=== PATIENT | female | born 1980 | race Caucasian/White ===

== ENCOUNTER 2016-06-06 08:00 | Outpatient (CLI) | payer MEDICAID | END 2016-06-06 08:01 | disposition home or self-care (01) | DX: Z11.3 Encounter for screening for infections with a predominantly sexual mode of transmission (principal) ==

== ENCOUNTER 2016-06-09 10:06 | Outpatient (CLI) | payer MEDICAID | END 2016-06-09 10:07 | disposition home or self-care (01) | DX: Z13.9 Encounter for screening, unspecified (principal) ==

== ENCOUNTER 2016-06-09 10:10 | Outpatient (CLI) | payer MEDICAID | END 2016-06-09 10:11 | disposition home or self-care (01) | DX: Z36 Encounter for antenatal screening of mother (principal); Z11.3 Encounter for screening for infections with a predominantly sexual mode of transmission; Z13.9 Encounter for screening, unspecified; E03.9 Hypothyroidism, unspecified ==

== ENCOUNTER 2016-07-03 11:05 | Outpatient (CLI) | payer MEDICAID | END 2016-07-03 11:06 | disposition home or self-care (01) | DX: Z36 Encounter for antenatal screening of mother (principal) ==

== ENCOUNTER 2016-07-13 16:35 | Emergency (ER) | payer MEDICAID | END 2016-07-13 17:59 | disposition home or self-care (01) | DX: O99.712 Diseases of the skin and subcutaneous tissue complicating pregnancy, second trimester (principal); L02.211 Cutaneous abscess of abdominal wall; O99.212 Obesity complicating pregnancy, second trimester; E66.01 Morbid (severe) obesity due to excess calories; Z3A.14 14 weeks gestation of pregnancy; Z87.891 Personal history of nicotine dependence; Z68.42 Body mass index [BMI] 45.0-49.9, adult ==

== ENCOUNTER 2016-07-31 10:28 | Outpatient (CLI) | payer MEDICAID | END 2016-07-31 10:29 | disposition home or self-care (01) | DX: Z36 Encounter for antenatal screening of mother (principal) ==

== ENCOUNTER 2016-08-05 20:03 | Outpatient (CLI) | payer MEDICAID | END 2016-08-05 20:04 | disposition home or self-care (01) | DX: R10.84 Generalized abdominal pain (principal); D18.03 Hemangioma of intra-abdominal structures; Z90.49 Acquired absence of other specified parts of digestive tract ==

== ENCOUNTER 2016-08-25 07:37 | Outpatient (CLI) | payer MEDICAID | END 2016-08-25 07:38 | disposition home or self-care (01) | DX: Z36 Encounter for antenatal screening of mother (principal) ==

== ENCOUNTER 2016-09-12 12:23 | Outpatient (CLI) | payer MEDICAID | END 2016-09-12 12:24 | disposition home or self-care (01) | DX: Z36 Encounter for antenatal screening of mother (principal) ==

== ENCOUNTER 2016-10-16 12:48 | Outpatient (CLI) | payer MEDICAID ==
[2016-10-16 14:19] VITALS: BP 140/76
== END 2016-10-16 14:10 | disposition home or self-care (01) ==
LOC: WFO 12:48 → OB 12:50 → WFO 14:10
PROVIDERS: ATTEND Obstetrics & Gynecology
DX: O36.8120 Decreased fetal movements, second trimester, not applicable or unspecified (principal); Z3A.27 27 weeks gestation of pregnancy; O99.282 Endocrine, nutritional and metabolic diseases complicating pregnancy, second trimester; E03.9 Hypothyroidism, unspecified
CPT/HCPCS: 36415; 59025; 83036; 84439; 84443; 84481

== ENCOUNTER 2016-10-16 12:52 | Outpatient (CLI) | payer MEDICAID | END 2016-10-16 12:53 | disposition home or self-care (01) | DX: E03.9 Hypothyroidism, unspecified (principal) ==

== ENCOUNTER 2016-12-07 20:47 | Outpatient (CLI) | payer MEDICAID ==
[2016-12-07 21:46] LABS: BILIRUBIN,URINE NEGATIVE (NEGATIVE)
[2016-12-07 21:53] LABS: WBC,URINE 0-3 /HPF (0-5)
[2016-12-07 21:54] LABS: UR CULTURE IF IND NOT INDICATED
[2016-12-07] MEDS ORDERED: TERBUTALINE 1 MG/ML VIAL SUBQ ONE (23:05)
[2016-12-08 00:08] VITALS: BP 142/70
== END 2016-12-08 00:07 | disposition home or self-care (01) ==
LOC: WFO 20:47 → OB 20:51 → WFO 12-08 00:07
PROVIDERS: ATTEND Obstetrics & Gynecology
DX: O47.03 False labor before 37 completed weeks of gestation, third trimester (principal); Z3A.35 35 weeks gestation of pregnancy
CPT/HCPCS: 81001; 87081; 87086; 87797; 96372; 99214

== ENCOUNTER 2016-12-16 10:08 | Outpatient (CLI) | payer MEDICAID ==
[2016-12-16 10:27] VITALS: BP 123/67
[2016-12-16 10:47] LABS: BASOPHILS # (AUTO) 0.1 10^3/uL (0.0-0.1); BASOPHILS % (AUTO) 0.5 %; EOSINOPHILS # (AUTO) 0.1 10^3/uL (0.0-0.7); EOSINOPHILS % (AUTO) 1.3 %; HCT - HEMATOCRIT 37.4 % (37.0-47.0); HGB - HEMOGLOBIN 12.7 g/dL (12.0-16.0); LYMPHOCYTES # (AUTO) 2.5 10^3/uL (1.5-3.5); LYMPHOCYTES % (AUTO) 25.7 %; MEAN CORPUSCULAR HGB CONC 34.1 g/dL (32.0-36.0); MEAN PLATELET VOLUME 7.9 fL (7.9-10.8); MONOCYTES # (AUTO) 0.5 10^3/uL (0.0-1.0); MONOCYTES % (AUTO) 5.4 %; NEUTROPHILS # (AUTO) 6.4 10^3/uL (1.5-6.6); NEUTROPHILS % (AUTO) 67.1 %; NUCLEATED RED BLOOD CELLS AUTO 0.1 /100WBC; RED CELL DISTRIBUTION WIDTH 15.2 % (12.0-15.0); UNCORRECTED WHITE BLOOD COUNT 9.6 x10^3/uL; WHITE BLOOD COUNT 9.6 x10^3/uL (4.8-10.8)
[2016-12-16 10:59] LABS: CREATININE 0.5 mg/dL (0.4-1.0)
[2016-12-16 12:03] LABS: HEMOGLOBIN A1C 0.51 g/dL
[2016-12-16 12:31] LABS: THYROID STIMULATING HORMONE 1.62 uIU/mL (0.34-5.60)
--- NOTE | 2016-12-17 10:10 | Ultrasound Report ---
OBSTETRICAL ULTRASOUND: 12/16/2016 CLINICAL HISTORY: Followup obstetrical ultrasound. Evaluate weight and amniotic fluid volume index. TECHNIQUE: Real-time scanning was performed with in home sales representative static images obtained. LAST MENSTRUAL PERIOD 04/02/2016 Clinical Age 36 weeks 6 days US Age 38 weeks 0 days EFW Hadlock 3586 g EFW% Hadlock 93% Heart Rate 150 bpm EDC 01/07/2017 US EDC 12/30/2016 BPD Hadlock 36 weeks 1 day; Mean mm 89.3 HC Hadlock 38 weeks 6 days; Mean mm 338.6 AC Hadlock 40 weeks 1 day; Mean mm 361.6 FL Hadlock 36 weeks 6 days; Mean mm 72.1 Presentation cephalic Placental Location --- Cervical Length --- Amniotic Fluid 4.4 cm FINDINGS: Single fetus is noted in vertex position. Composite gestational age by ultrasound today is 38 weeks. Present gestational age is 8 days more advanced than expected. This degree of growth is at the upper limits of normal. estimated weight today is 3586 grams. This is within the 93rd percentile for expected gestational age. abdominal circumference also is at the upper limits of normal. abdominal circumference also is at the upper limits of normal. anatomy only underwent limited evaluation today. head showed no obvious abnormality. abdomen showed no significant abnormality. heart rate was 150 beats per minute and regular. Normal movement was noted. Placenta is posterior and of the grade 2 type. Amniotic fluid volume index is low, measuring 4.4 cm. This is in the lower 2.5 percentile. Umbilical cord flow shows normal end-diastolic flow. IMPRESSION: 1. SINGLE FETUS IS NOTED IN VERTEX POSITION. PRESENT GESTATIONAL AGE IS 8 DAYS MORE ADVANCED THAN EXPECTED CALCULATED FROM PRECEDING ULTRASOUND EXAMS. PATIENT SHOULD BE 36 WEEKS 6 DAYS BUT MEASURES TODAY 38 WEEKS. PATIENT'S WEIGHT AND ABDOMINAL CIRCUMFERENCE IS AT THE UPPER LIMITS OF NORMAL, WITHIN THE 93RD PERCENTILE. WEIGHT AT PRESENT IS 3586 GRAMS (7.91 POUNDS). 2. POSTERIOR GRADE 2 PLACENTA IS NOTED. 3. OLIGOHYDRAMNIOS IS SEEN. AMNIOTIC FLUID VOLUME INDEX IS BELOW THE 2.5 PERCENTILE FOR GESTATIONAL AGE. UMBILICAL CORD FLOW SHOWS NORMAL END-DIASTOLIC FLOW. OTHER STUDIES TO CONSIDER FOR FURTHER EVALUATION IS NONSTRESS TEST AND BIOPHYSICAL PROFILE. ALSO, PATIENT SHOULD BE CHECKED FOR PREMATURE RUPTURE OF MEMBRANES. COMMENT: Dr. Taveras informed patient's physician, Dr. Healy, of the above findings on 12/16/2016 at 4:[address] [facility]
== END 2016-12-16 15:25 | disposition home or self-care (01) ==
LOC: WFO 10:08 → OB 10:09 → WFO 15:25
PROVIDERS: ATTEND Obstetrics & Gynecology
DX: O09.523 Supervision of elderly multigravida, third trimester (principal); Z3A.36 36 weeks gestation of pregnancy
CPT/HCPCS: 36415; 59025; 76816; 82565; 82570; 83036; 83615; 84156; 84439; 84443; 84450; 84481; 84550; 85025; 85384; 86803

== ENCOUNTER 2016-12-16 22:48 | Observation (INO) | payer MEDICAID ==
[2016-12-17] MEDS ORDERED: SODIUM CHLORIDE FLUSH 0.9% 10 ML SYRINGE IVP PRN (00:12)
--- NOTE | 2016-12-17 00:48 | PROVIDER PROGRESS NOTE ---
Subjective - Prog Note Date Prog Note Date: 12/17/16 Prog Note Time: 00:43 - Subjective Pt reports feeling: No change Objective - Vital Signs/Intake & Output Vital Signs: Vital Signs x48h Temp Pulse Resp BP Pulse Ox 12/16/16 23:06 98.1 F 85 20 135/61 H 100 - Lab Results Other Labs: Lab Results x24hrs 12/17/16 Range/Units 00:41 POC Whole Bld Glucose 151 H (70 - 100) mg/dL Assessment/Plan - Problem List (1) Oligohydramnios antepartum Impression: 36 yo with a 36w3d IUP. Work up suggestive of intact membranes with negative pooling, ferning and nitrazine. JOVANA yesterday low at 4.4 cm. No cervical change. status reassuring with baseline in 120-130's, reactive and category 1. No decels. Hypothyroid and levothyroxine just increased to 88 mcg po daily. Will IV hydrate and plan to repeat JOVANA in AM. If however, if patient declares that she is ruptured, plan for induction of labor. If Aruna continues to have a reassuring status, have no signs of ruptured membranes, have no signs of labor, and repeat JOVANA > 5 cm, consider discharge to home. GBS negative so will not require antibiotics for GBS prophylaxis. Continue flexeril and oxycodone for chronic back pain. Qualifiers: Fetus number: single or unspecified fetus Trimester: third trimester Qualified Code(s): O41.03X0 - Oligohydramnios, third trimester, not applicable or unspecified
[2016-12-17] MEDS: LACTATED RINGERS 1,000 ML IV SCH ×3 (00:52→08:37)
--- NOTE | 2016-12-17 00:57 | PROVIDER PROGRESS NOTE ---
Objective - Vital Signs/Intake & Output Vital Signs: Vital Signs x48h Temp Pulse Resp BP Pulse Ox 12/17/16 00:43 99.1 F 80 20 128/64 100 12/16/16 23:06 98.1 F 85 20 135/61 H 100 - Lab Results Other Labs: Lab Results x24hrs 12/17/16 Range/Units 00:41 POC Whole Bld Glucose 151 H (70 - 100) mg/dL Assessment/Plan - Problem List (1) Oligohydramnios antepartum Impression: H&P dictated-- [id number]. 12/16/2016 labs: WBC 9.6, H/H 12.7/37.4, PLT 273. Fibrinogen 588, creatinine 0.5 , HgbA1c 5.6, AST 23, TSH 1.62, fT4 0.53, fT3 3.17, UA with glucose and ketones. Urine protein: creatinine 0.1. 12/16/2016 prelim U/S: Single fetus, VTX. Present gestational age 8 days more advanced than expected. Weight 3586 gm, 7.91 lbs, 93%centile. Grade 2 placenta. Oligohydramnios 4.4 cm. Qualifiers: Fetus number: single or unspecified fetus Trimester: third trimester Qualified Code(s): O41.03X0 - Oligohydramnios, third trimester, not applicable or unspecified
[2016-12-17] MEDS: ACETAMINOPHEN 325 MG TABLET PO SCH ×3 (01:02→12:46)
[2016-12-17] MEDS: oxyCODONE 5 MG TABLET PO SCH ×4 (01:04→13:56)
[2016-12-17] MEDS ORDERED: SODIUM CHLORIDE FLUSH 0.9% 10 ML SYRINGE IVP SCH (06:00)
[2016-12-17] MEDS ORDERED: LEVOTHYROXINE 88 MCG TABLET PO SCH (07:00)
[2016-12-17] MEDS ORDERED: CYCLOBENZAPRINE 10 MG TABLET PO SCH (09:00)
[2016-12-17] MEDS ORDERED: OXYCODONE HCL 10 MG PO SCH (09:00)
--- NOTE | 2016-12-17 09:32 | PROVIDER PROGRESS NOTE ---
Subjective - Prog Note Date Prog Note Date: 12/17/16 Prog Note Time: 09:25 - Subjective Pt reports feeling: No change Subjective: Patient sitting in bed. Family at bedside visiting. Abelardo slept here overnight. No complaints of loss of fluid. Baby moving well. No vaginal bleeding. Worried about baby since they heard heart tones to 90's. Objective - Vital Signs/Intake & Output Reviewed Vital Signs: Yes Vital Signs: Vital Signs x48h Temp Pulse Resp BP Pulse Ox 12/17/16 06:47 98.2 F 71 18 128/69 99 12/17/16 05:09 97.3 F L 82 20 148/68 H 99 12/17/16 03:07 99.0 F 84 20 139/64 H 96 Intake & Output: Intake & Output 12/14/16 12/15/16 12/16/16 12/17/16 23:59 23:59 23:59 23:59 Intake Total 1487 Balance 1487 - Objective General Appearance: positive: No acute distress Abdomen: positive: Non-tender (Gravid, nontender) - Lab Results Other Labs: Lab Results x24hrs 12/17/16 12/17/16 Range/Units 05:38 00:41 POC Whole Bld Glucose 79 151 H (70 - 100) mg/dL Assessment/Plan - Problem List (1) Oligohydramnios antepartum Impression: 36 yo with 36w3d IUP Oligohydramnios at 4.4 cm (negative for nitrazine, pooling and ferning) Reviewed NST-- reactive and category 1. Small variables x 2 down to 90's. Variables likely from cord compression in the face of oligohydramnios. Continue IVF. JOVANA today at 13:00. D/W patient if JOVANA >/= 5cm, no suspicion of ruptured membranes, reassuring maternal and status, likely to be discharged to home. However, if JOVANA < 5cm, rupture of membranes shown, nonreassuring status, strongly would consider induction of labor. Will discuss case with on-call physician, Dr. Singh. Qualifiers: Fetus number: single or unspecified fetus Trimester: third trimester Qualified Code(s): O41.03X0 - Oligohydramnios, third trimester, not applicable or unspecified
[2016-12-17] MEDS: CYCLOBENZAPRINE 10 MG TABLET PO SCH ×2 (10:03→13:57)
[2016-12-17] MEDS ORDERED: LACTATED RINGERS 1,000 ML IV SCH (12:13)
--- NOTE | 2016-12-17 14:41 | PROVIDER PROGRESS NOTE ---
Subjective - Prog Note Date Prog Note Time: 14:30 - Subjective Subjective: Patients continues to have frontal AMCKAY behind her eyes without scintillation or scomatoma. "I fear reoccurrence of toxemia." No more leaking reported. JOVANA increased to 8.4 cm w normal end diastolic flow. B/P 140s on 2 occasions. Plan to continue BP checks for 2 -4Hr. Objective - Vital Signs/Intake & Output Vital Signs: Vital Signs x48h Temp Pulse Resp BP Pulse Ox 12/17/16 09:46 97.9 F 80 16 142/71 H 99 12/17/16 06:47 98.2 F 71 18 128/69 99 Intake & Output: Intake & Output 12/14/16 12/15/16 12/16/16 12/17/16 23:59 23:59 23:59 23:59 Intake Total 2487 Output Total 600 Balance 1887 - Lab Results Other Labs: Lab Results x24hrs 12/17/16 12/17/16 12/17/16 Range/Units 11:48 05:38 00:41 POC Whole Bld Glucose 88 79 151 H (70 - 100) mg/dL
[2016-12-17 17:05] VITALS: BP 129/65
--- NOTE | 2016-12-17 17:29 | Discharge Plan ---
Discharge Plan Disposition: Home, Self Care Condition: Good Diet: Regular Activity Restrictions: Walk and normal activity Shower Restrictions: No Driving Restrictions: No Instruction Topics: Preeclampsia Additional Instructions or Follow Up instructions: Pt returning Thursday for B/P check & NST; Daily Kick counts at home No Smoking: If you smoke, Please STOP! Call for help.
--- NOTE | 2016-12-17 23:53 | HISTORY & PHYSICAL EXAMINATION ---
DATE OF ADMISSION: 12/17/2016 IDENTIFICATION: 36-year-old G6, P5, 0, 0, 6 with a 36 and 2/7 week intrauterine . EDC is 01/11/2017 consistent with an 8 week ultrasound. HISTORY OF PRESENT ILLNESS: The patient is a patient of [facility] who presents for the second time today. The patient was seen earlier today for her routine visit. She was noting a headache on the left side of her head. This headache was unusual for the patient. The patient recalled that she had preeclampsia with her second to last delivery. She had significant elevated blood pressures with them being in the 200s/100s. The patient also stated that the baby is feeling much bigger than with her previous pregnancies. This is noted to be a male fetus. The patient was sent over to labor and delivery for further evaluation. She was negative for proteinuria and her preeclampsia labs were also within normal limits. The patient was noted to be normotensive. Given the patient's history of chronic hypertension and that she was feeling that the baby was measuring large I ordered an ultrasound for EFW and JOVANA. Unfortunately due to several ultrasounds ordered in the emergency department we were unable to do the ultrasound for several hours. The patient was discharged to home prior to me evaluating the ultrasound results. Dr. Taveras the radiologist called me and reported that the prelim showed that the baby was measuring at 38 weeks gestation and that the amniotic fluid was decreased at 4.4 cm. I called the patient and told her that she has oligohydramnios and given that her prolonged stress test earlier that day was reassuring we would have her return to labor and delivery in 48 hours for repeat nonstress test and amniotic fluid index with her drinking increased amount of p.o. water. The caveat, however, was that the patient should re-present to labor and delivery should she have any worsening of fluid, decreased movement, contractions or vaginal bleeding. The patient has returned to us with complaints of loss of fluid. On examination the patient was negative for nitrazine pooling and ferning. She had another cervical examination performed by the same nurse who evaluated her the other night. There was no change in her cervix at 2 cm dilation, 50% effacement, and - 3 station. The nonstress test is reactive with a baseline in the 120s-130s. There are no decelerations. The patient is having some irregular contractions, occurring anywhere between every 2 to 5 minutes. They are variable in intensity. Given that the rupture test is suggestive of intact membranes we can not confirm this. Also because of the patient's low amniotic fluid index, less than 5 cm, I have recommended her to stay for IV fluid hydration and to see if her body declares danie rupture of membranes or labor. The patient is amenable to this plan. If however, the baby maintains a reassuring heart tracing, she still shows signs of being intact and the fluid on repeat ultrasound is greater than 5 cm we will discharge her to home as she is still premature at 36 weeks gestation. The patient currently denies any nausea, vomiting, fever, chills, diarrhea or constipation. PAST MEDICAL HISTORY: Super morbid obesity with a BMI of 51, hypothyroidism, chronic back pain, diabetes mellitus - diet controlled, history of depression. PAST SURGICAL HISTORY: Status post 2002 cholecystectomy, 1985 wrist fracture. ALLERGIES: TO LATEX, PENICILLIN, VICODIN, DILAUDID, PREDNISONE, TRAMADOL. MEDICATIONS: 1. Levothyroxine 88 mcg 1 tab p.o. daily. 2. Oxycodone 10 mg 1 tab p.o. b.i.d. 3. Flexeril 350 mg 1 tab p.o. q.i.d. p.r.n. pain. SOCIAL HISTORY: She denies any tobacco, alcohol or illicit drug use. The patient is to Abelardo and the two of them have daughters, Eliot and Veronica, Abelardo is the father of this who is a little boy with an anticipated name of Alex. The patient's other children are Lynne, Josette, Janis and Abena. PAST OBSTETRICAL HISTORY: Five term spontaneous vaginal deliveries with her third being twin gestation. PAST GYNECOLOGICAL HISTORY: The patient has had abnormal Pap smears with spontaneous resolution. She denies any other sexually transmitted diseases. FAMILY HISTORY: Noncontributory. REVIEW OF SYSTEMS: Negative unless otherwise stated. OBJECTIVE VITAL SIGNS: Temperature is 98.1, heart rate 85, blood pressure 135/61, respiratory rate 20, and oxygen saturation is 100. GENERAL: The patient is a well developed obese female in no apparent distress. She is alert and oriented x3. She is very intelligent and reasonable. HEENT: Within normal limits. She does wear glasses. ABDOMEN: Gravid, nontender. Fundal height earlier today is consistent with dates at 36 cm. Baby is vertex per ultrasound. LABS: Show that she is O negative, HIV negative, chlamydia and gonorrhea both negative. RPR is nonreactive. Rubella is immune. Hepatitis B surface antigen is negative. One hour GGT is 162. The patient has declined a 3 hour GGT and would prefer to be treated as a gestational diabetic and do peripheral capillary glucose checks. GBS is negative. Placenta is noted to be left posterior. ASSESSMENT: 1. 36-year-old G6, P5, 0, 0, 6 with a 36 and 2/7 weeks intrauterine . 2. Negative rupture test but can not definitely say that her membranes are intact. 3. Hypothyroidism. 4. Oligohydramnios. 5. Super morbid obesity. 6. On oxycodone for chronic pain control as well as Flexeril. PLAN: 1. Will proceed to IV fluid hydration. 2. Continuous monitoring. 3. Will watch out for any signs of rupture of membranes. 4. Will see if the patient does declare herself and go into labor if she is occultly ruptured. 5. Should the patient still show signs of reassuring heart tone status and she is most likely intact and her fluid is greater than 5 cm we will consider sending the patient home. JOB #: [id number] EXT JOB #:[id number] [facility]
--- NOTE | 2016-12-18 05:34 | HISTORY & PHYSICAL EXAMINATION ---
DATE OF ADMISSION: 12/17/2016 DIAGNOSES 1. Labile blood pressure. 2. Preeclampsia complicating prior . 3. Decreased amniotic fluid index, remedied after intravenous fluid. HISTORY: The patient is a 36-year-old 6, para 5-0-0-5 woman who was evaluated in Labor and Delivery initially by Dr. Kinza Healy for suspected leakage of fluid. Fern test and serial exam confirmed there was no leakage; however, ultrasound revealed a decreased JOVANA of 4.4. The patient's history is remarkable for gestational diabetes, controlled with diet and self-monitoring. The patient also has a history of chronic back pain and is seen by a pain specialist with an oxycodone contract. In addition to gestational diabetes, the patient is hypothyroid and on thyroxine. ALLERGIES INCLUDE: 1. LATEX. 2. PENICILLIN. 3. PREDNISONE. 4. TRAMADOL. 5. VICODIN. PHYSICAL EXAMINATION GENERAL: Alert, oriented, lying comfortably in bed; family in attendance VITAL SIGNS: Baseline blood pressure 128/69, on 2 occasions 140s over high 60s to 70s. Temp 99.0. HEENT: Supple neck. No thyromegaly. ABDOMEN: Obese, large pannus. No epigastric tenderness. Slightly increased liver span maybe 12 cm, possibly fatty liver. UTERUS: Nontender, acontractile, vertex presentation. GENITOURINARY: Sequential cervical exam by Dr. Healy shows no change. No ferning or nitrazine reaction. EXTREMITIES: Mild pedal edema. Mild finger edema. NEUROLOGIC: Grossly intact. Reflexes 2+. No clonus. LABS: Hemoglobin 12.7, white count 9.6, platelets 273, fibrinogen 588, creatinine 0.5, hemoglobin A1c 5.6, AST 23, creatinine 0.5. UA positive glucose and ketones, creatinine 0.1. ULTRASOUND: Rascon fetus, vertex; weight 3586 g, 93rd percentile; grade 2 placenta; oligohydramnios 4.4. REPEAT ULTRASOUND: JOVANA of 8.4; normal end-diastolic flow. ASSESSMENT: The patient is a near-term multiparous woman who has blood pressure values bumping up against the 140s systolic on occasion. Additionally, she has a persistent headache for the last 5 days, but this is not an uncommon event for her. She is known to be at risk for preeclampsia and, in fact, her last was complicated by the same. The patient most likely has a - induced hypertension process in evolution. Offered induction for gestational hypertension. PLAN: Explained risks and benefits of induction, which the patient is receptive. Unfortunately, due to staffing concerns, we cannot begin induction tonight because of a completely full labor deck. Offered to delay with Cervidil and induction until tomorrow but patient declines because of her daughter's birthday green party. Reviewed the signs and symptoms of worsening preeclampsia. Patient has a home blood pressure monitor and states she will take her blood pressure tomorrow. She will come back immediately if her headache worsens, visual symptoms develop or right upper quadrant pain returns. Otherwise, she will return on Thursday for blood pressure check and NST. At that time if blood pressures are still elevated, induction could be considered. JOB #: [id number] EXT JOB #:[id number] [facility]
--- NOTE | 2016-12-18 08:04 | Ultrasound Report ---
OB LIMITED: 12/17/2016 CLINICAL HISTORY: A 36-year-old female approximately 37 weeks gestational age with oligohydramnios. TECHNIQUE: Real-time scanning was performed with claim representative static images obtained. LAST MENSTRUAL PERIOD 04/06/2016 Clinical Age 37 weeks 0 days US Age --- EFW Hadlock --- EFW% Hadlock --- Heart Rate 127 bpm EDC 01/07/2017 US EDC --- BPD Hadlock --- HC Hadlock --- AC Hadlock --- FL Hadlock --- Presentation cephalic Placental Location --- Cervical Length --- Amniotic Fluid 8.7 cm FINDINGS: A single fetus is noted in vertex position. heart rate is 127 beats per minute. Amniotic fluid volume index is improved for amniotic fluid at this gestational age. It is definitely improved as compared to yesterday's scan. Umbilical artery Doppler exam shows excellent end-diastolic flow. IMPRESSION: 1. LIMITED ULTRASOUND EXAM WITH SINGLE FETUS NOTED IN VERTEX POSITION. 2. LOW NORMAL AMNIOTIC FLUID VOLUME INDEX MEASURING TODAY 8.7 CM. THIS IS IMPROVED COMPARED TO YESTERDAY'S EXAM. 3. UMBILICAL ARTERY FLOW SHOWS NORMAL END-DIASTOLIC FLOW. [facility]
--- NOTE | 2016-12-22 07:15 | HISTORY & PHYSICAL EXAMINATION ---
DATE OF ADMISSION: 12/17/2016 ANTICIPATED DATE OF ADMISSION: 12/20/2016. IDENTIFICATION: This is a 36-year-old G6, P5-0-0-6, with a 36 and 6/7 weeks intrauterine , EDC is 01/11/2017, consistent with an 8-week ultrasound. HISTORY OF PRESENT ILLNESS: The patient's anticipated to present to Labor and Delivery on 12/20/2016 for cervical ripening. In the last few days the patient has been found to have oligohydramnios of 4.4 cm and elevated blood pressures. Patient has had a history of pre-eclampsia in the past and has shown signs of chronic hypertension during this . In the clinic on 10/20 at 28 weeks 1 day her blood pressure was noted to be 160/100, and a repeat was 142/82. At patient's most recent OB appointment on 12/16/2016 at 36 weeks 2 days, patient was noting a 4 day history of a left sided headache. This headache was unusual for patient. She was sent to Labor and Delivery where she was given a pre-eclampsia workup. Labs were unremarkable as she had a white count of 9.6, platelets at 273, creatinine 0.5, uric acid 6.0, AST 23, fibrinogen 588, LDH 105. Hemoglobin A1c is 5.6. Estimated average glucose is 114. Urine protein to creatinine ratio 0.1. Hepatitis C screen is nonreactive. Mildly decreased free T4 of 0.53, TSH 1.62, free T3 of 3.17. An ultrasound was performed given patient 's history of chronic hypertension and that she felt that the baby was measuring large. Estimated weight was 5,686 grams in the 93rd percentile. JOVANA was decreased at 4.4 cm. Normal end diastolic flow. Patient returned on and was given IV fluid and hydration. Her repeat JOVANA on that same day had improved to 8.7 cm with umbilical Doppler showing excellent end diastolic flow. On 12/19/2016 I discussed with patient that given her increasing blood pressures with the highest in the 140's over 80's, that we consider induction of labor especially in the face of a decreased JOVANA of uncertain etiology. Workup had shown that patient was not ruptured. A repeat amniotic fluid index on 12/19/2016 had showed that it was improved again at 9.02 cm. NST was reactive in category 1. There were no decelerations seen and irregular contractions on toco. I discussed with patient that again my recommendations were to get her delivered as she currently has chronic hypertension, but has not as yet shown any signs of superimposed pre-eclampsia. It is worrisome to me that her amniotic fluid index had decreased so significantly earlier this week. I discussed with patient our options and they are as follows: 1. Conservative management with serial NST's and JOVANA's with the addition of antihypertensives as needed. 2. Steroids with cervical ripening at the conclusion of steroid course. 3. Induction of labor with the knowledge that with or without steroids there is still an increased risk of prematurity which may result in the baby having difficulty measuring its body temperature, having difficulty eating, as well as respiratory issues. Also in the mix is patient's chronic opioid medication in which she is taking 10 mg of oxycodone 5 times a day for her chronic back pain. Patient is also taking Flexeril 10 mg. I did also tell patient that I am concerned about the baby being able to maintain his sugars as patient has been diagnosed with diabetes mellitus currently controlled by diet with a large baby in the 93rd percentile. After all of patient's questions were answered to her satisfaction she verbalized her desire to induce after a course of steroids has been completed in order to minimize any prematurity risks that may occur. Patient understands that we may need to transfer the baby should he have any signs of opioid withdrawal independent of any prematurity issues. Patient did receive 1 dose of betamethisone 12 mg IM x1 earlier this morning and will repeat the next dose 24 hours from the first original one. Currently patient is doing well and she denies any fevers or chills. The baby is moving well, but she still continues to have headaches and some mild right upper quadrant tenderness. Her last cervical examination was high, thick, and -3 , very posterior on 12/16. I could not reach the internal cervical os. PAST MEDICAL HISTORY 1. Super obesity. 2. History of anxiety and depression. 3. Hypothyroidism. 4. Chronic pain. 5. Diabetes mellitus controlled by diet. 6. Esophageal reflux. PAST SURGICAL HISTORY: 1. Cholecystectomy in 2002. 2. Wrist surgery. ALLERGIES: 1. DILAUDID. 2. PENICILLIN. 3. PREDNISONE. 4. TRAMADOL. 5. VICODIN. MEDICATIONS: 1. Levothyroxine 88 mcg 1 time p.o. daily. 2. vitamins. 3. Oxycodone 10 mg 1 tab p.o. 5 times a day. 4. Flexeril 1 tablet daily. SOCIAL HISTORY: She denies any tobacco, alcohol, or illicit drug use. Patient is to Abelardo and patient's children include Lynne, Josette, Parul, Rina, and her children with Abelardo are Rafael Mccabe, and this baby with anticipated name of Alex. PAST OBSTETRICAL HISTORY: Five term spontaneous vaginal deliveries with one of them being a twin gestation. This is a male fetus with anticipated name of Alex. PAST GYNECOLOGICAL HISTORY: She has had a history of abnormal Pap smear, but there has been spontaneous resolutions. FAMILY HISTORY: She denies any female carcinoma. REVIEW OF SYSTEMS: Negative unless otherwise stated. OBJECTIVE: Temperature 98.8, heart rate 87, blood pressure 133/73, respiratory rate 16, O2 saturation 97% on room air. GENERAL: Patient is a well-developed, well-nourished female in no apparent distress. She is alert and oriented x3, seems very pleasant, easy to speak to. HEENT: Within normal limits. She does wear glasses. CARDIOVASCULAR: Regular. No murmurs or rubs. PULMONARY: Lungs are clear to auscultation bilaterally. ABDOMEN: Gravid, nontender. labs show she is O negative, chlamydia and gonorrhea are both negative. HIV is negative. RPR nonreactive, rubella immune. Hepatitis B surface antigen nonreactive. 1-hour GGT is 162. Patient has declined a 3-hour GGT and in exchange has been doing peripheral capillary glucose checks. GBS is negative. Placenta is noted to be posterior with 3-vessel cord. ASSESSMENT: 1. A 36-year-old G6, P5-0-0-6, with a 36 and 6/7 weeks intrauterine . 2. Chronic hypertension with increasing blood pressures. No current signs of superimposed pre-eclampsia. 3. Status post first dose of betamethisone 12 mg on 12/19/2016. 4. Recent history of oligohydramnios at 4.4. Repeat ultrasound on 12/19 is 9 cm. 5. Narcotic use during this of Oxycodone 50 mg daily. 6. Diabetes mellitus diet controlled. 7. RH negative. 8. Super obesity. 9. Hypothyroidism. PLAN: 1. Will give patient her second and final dose of betamethisone 12 mg IM x1 on 12/20/2016. 2. Cervical ripening most likely with Cytotec 50 mcg sublingual x1 and likely convert to Pitocin with AROM as indicated. 3. RhoGAM per protocol. 4. Continue levothyroxine 88 mcg 1 tablet p.o. daily. 5. Expect spontaneous vaginal delivery, but be prepared for hemorrhage given patient's grand multiparity. 6. Anticipate that the baby will need sugar checks given his anticipated large size and he will need to be followed for narcotic withdrawal. 7. Epidural as needed. After reviewing the case and given the patient's golobal picture I decided not to induce the patient here at [facility] as we do not have the facilities, nor the specialists, to give Aruna and her baby the best care. The patient was given a second dose of Betamethasone. She will be transferred to for delivery. We will keep seeing Aruna until she establishes care at . JOB #: [id number] EXT JOB #:[id number] MTDJaime
== END 2016-12-17 17:43 | disposition home or self-care (01) ==
LOC: WFO 22:48 → OB 22:49 → WFO 12-17 00:12
PROVIDERS: ADMIT Obstetrics & Gynecology; ATTEND Obstetrics & Gynecology
DX: O41.03X0 Oligohydramnios, third trimester, not applicable or unspecified (principal); O99.213 Obesity complicating pregnancy, third trimester; E66.01 Morbid (severe) obesity due to excess calories; Z68.43 Body mass index [BMI] 50.0-59.9, adult; Z3A.36 36 weeks gestation of pregnancy; O99.283 Endocrine, nutritional and metabolic diseases complicating pregnancy, third trimester; E03.9 Hypothyroidism, unspecified; O99.89 Other specified diseases and conditions complicating pregnancy, childbirth and the puerperium; R51 Headache; O24.410 Gestational diabetes mellitus in pregnancy, diet controlled; Z86.59 Personal history of other mental and behavioral disorders; Z79.891 Long term (current) use of opiate analgesic; Z79.899 Other long term (current) drug therapy; O10.913 Unspecified pre-existing hypertension complicating pregnancy, third trimester; O09.523 Supervision of elderly multigravida, third trimester
CPT/HCPCS: 76815; 96360; 96361; 99213; A9270; G0378; J7120

== ENCOUNTER 2016-12-18 14:05 | Outpatient (CLI) | payer MEDICAID ==
[2016-12-18 14:41] LABS: BASOPHILS % (AUTO) 0.2 %; EOSINOPHILS # (AUTO) 0.1 10^3/uL (0.0-0.7); EOSINOPHILS % (AUTO) 0.8 %; HCT - HEMATOCRIT 36.9 % (37.0-47.0); HGB - HEMOGLOBIN 12.3 g/dL (12.0-16.0); LYMPHOCYTES # (AUTO) 2.4 10^3/uL (1.5-3.5); LYMPHOCYTES % (AUTO) 23.5 %; MEAN CORPUSCULAR HEMOGLOBIN 28.4 pg (27.0-31.0); MEAN CORPUSCULAR HGB CONC 33.4 g/dL (32.0-36.0); MEAN CORPUSCULAR VOLUME 85.2 fL (81.0-99.0); MEAN PLATELET VOLUME 7.8 fL (7.9-10.8); MONOCYTES # (AUTO) 0.5 10^3/uL (0.0-1.0); MONOCYTES % (AUTO) 5.3 %; NEUTROPHILS # (AUTO) 7.1 10^3/uL (1.5-6.6); NEUTROPHILS % (AUTO) 70.2 %; RED BLOOD COUNT 4.33 10^6/uL (4.20-5.40); RED CELL DISTRIBUTION WIDTH 15.4 % (12.0-15.0); UNCORRECTED WHITE BLOOD COUNT 10.2 x10^3/uL; WHITE BLOOD COUNT 10.2 x10^3/uL (4.8-10.8)
[2016-12-18 14:53] LABS: URIC ACID 5.8 mg/dL (2.6-7.2)
[2016-12-18 18:04] VITALS: BP 151/80
--- NOTE | 2016-12-19 10:46 | Ultrasound Report ---
OBSTETRIC ULTRASOUND, LIMITED: 12/18/2016 Patient has low normal amniotic fluid. CLINICAL HISTORY: Patient is in the last trimester and showed initially oligohydramnios on exam from 12/16/2016 and then low normal amniotic fluid on exam from 12/17/2016. Present exam is being done to evaluate once again amniotic fluid. TECHNIQUE: Real-time scanning was performed with home furnishings sales representative static images obtained. Single fetus is noted in vertex position. heart rate is 127 beats per minute with normal movement. Amniotic fluid volume index today is 14.1. The amniotic fluid volume index suggests a dramatic increase in the amniotic fluid since yesterday. Although there are slightly larger pockets of fluid, the overall volume of each pocket is still limited. There probably has only been a mild increase in the amount of amniotic fluid since yesterday, less than the amniotic fluid volume index suggests. Visually, the amount of amniotic fluid still appears to be low normal. Single fetus is noted in vertex position. IMPRESSION: Amniotic fluid volume index is increased to 14.1. Despite the increase in amniotic fluid volume index as compared to yesterday's exam, visually the amniotic fluid volume still appears to be in the low normal range as discussed above. COMMENT: Dr. Taveras discussed the above findings with Dr. Singh on 12/18/2016 at 4:40 p.m. JOB #: [id number] EXT JOB #: [id number] [facility]
== END 2016-12-18 19:15 | disposition home or self-care (01) ==
LOC: WFO 14:05 → OB 14:07 → WFO 19:15
PROVIDERS: ATTEND Obstetrics & Gynecology
DX: O10.913 Unspecified pre-existing hypertension complicating pregnancy, third trimester (principal); O24.419 Gestational diabetes mellitus in pregnancy, unspecified control; O09.523 Supervision of elderly multigravida, third trimester; Z3A.36 36 weeks gestation of pregnancy
CPT/HCPCS: 36415; 76815; 82570; 83615; 84156; 84450; 84550; 85025; 99214

== ENCOUNTER 2016-12-19 08:08 | Outpatient (CLI) | payer MEDICAID ==
[2016-12-19] MEDS ORDERED: BETAMETHASONE 30 MG/5 ML VIAL IM SCH (10:00)
[2016-12-19 10:53] VITALS: BP 140/78
--- NOTE | 2016-12-19 11:30 | Ultrasound Report ---
JOVANA CHECK: 12/19/2016 CLINICAL INDICATION: Check JOVANA, hypertension. FINDINGS: There is a single viable intrauterine gestation, with heart rate of 146 BPM. JOVANA is normal, measuring 9.0. IMPRESSION: NORMAL JOVANA. JOB #: [id number] EXT JOB #:[id number]
== END 2016-12-19 10:35 | disposition home or self-care (01) ==
LOC: WFO 08:08 → OB 08:11 → WFO 10:35
PROVIDERS: ATTEND Obstetrics & Gynecology
DX: O10.913 Unspecified pre-existing hypertension complicating pregnancy, third trimester (principal); O09.523 Supervision of elderly multigravida, third trimester; Z3A.36 36 weeks gestation of pregnancy
CPT/HCPCS: 59025; 76815; 96372

== ENCOUNTER 2016-12-20 07:28 | Outpatient (CLI) | payer MEDICAID ==
[2016-12-20 09:07] LABS: BASOPHILS % (AUTO) 0.3 %; EOSINOPHILS % (AUTO) 0.2 %; MEAN CORPUSCULAR HGB CONC 33.8 g/dL (32.0-36.0); MEAN PLATELET VOLUME 7.6 fL (7.9-10.8); MONOCYTES % (AUTO) 6.4 %
[2016-12-20 09:10] LABS: HCT - HEMATOCRIT 35.4 % (37.0-47.0); LYMPHOCYTES % (AUTO) 24.3 %; MEAN CORPUSCULAR HEMOGLOBIN 28.8 pg (27.0-31.0); MEAN CORPUSCULAR VOLUME 85.2 fL (81.0-99.0); NEUTROPHILS % (AUTO) 68.8 %; RED BLOOD COUNT 4.15 10^6/uL (4.20-5.40); RED CELL DISTRIBUTION WIDTH 15.2 % (12.0-15.0); UNCORRECTED WHITE BLOOD COUNT 11.4 x10^3/uL; WHITE BLOOD COUNT 11.4 x10^3/uL (4.8-10.8)
[2016-12-20 09:20] LABS: URIC ACID 6.6 mg/dL (2.6-7.2)
[2016-12-20 09:30] LABS: CREATININE 0.5 mg/dL (0.4-1.0)
[2016-12-20 09:35] LABS: BAND NEUTROPHILS % (MANUAL) 0 %
[2016-12-20 09:36] LABS: LYMPHOCYTES % (MANUAL) 20 %; NEUTROPHILS % (MANUAL) 64 %; NP AUTO DIFFERENTIAL? YES; NP MAN DIFFERENTIAL? NO; PLATELET ESTIMATE, MANUAL NORMAL (130-450,000) (NORMAL)
[2016-12-20] MEDS ORDERED: BETAMETHASONE 30 MG/5 ML VIAL IM ONE (10:00)
[2016-12-20 11:02] VITALS: BP 145/76
== END 2016-12-20 10:35 | disposition home or self-care (01) ==
LOC: WFO 07:28 → OB 07:29 → WFO 10:35
PROVIDERS: ATTEND Obstetrics & Gynecology
DX: O10.913 Unspecified pre-existing hypertension complicating pregnancy, third trimester (principal); O24.419 Gestational diabetes mellitus in pregnancy, unspecified control; Z3A.36 36 weeks gestation of pregnancy; O09.523 Supervision of elderly multigravida, third trimester
CPT/HCPCS: 59025; 82565; 82570; 83615; 84156; 84450; 84550; 85025

== ENCOUNTER 2016-12-20 21:26 | Outpatient (CLI) | payer MEDICAID ==
[2016-12-20 22:17] LABS: BILIRUBIN,URINE NEGATIVE (NEGATIVE)
[2016-12-20 22:21] LABS: BASOPHILS % (AUTO) 0.2 %; HCT - HEMATOCRIT 33.9 % (37.0-47.0); HGB - HEMOGLOBIN 11.6 g/dL (12.0-16.0); LYMPHOCYTES % (AUTO) 17.7 %; MEAN CORPUSCULAR HEMOGLOBIN 29.3 pg (27.0-31.0); MEAN CORPUSCULAR HGB CONC 34.2 g/dL (32.0-36.0); MEAN CORPUSCULAR VOLUME 85.5 fL (81.0-99.0); MONOCYTES % (AUTO) 4.1 %; RED BLOOD COUNT 3.96 10^6/uL (4.20-5.40); RED CELL DISTRIBUTION WIDTH 15.4 % (12.0-15.0); UNCORRECTED WHITE BLOOD COUNT 9.8 x10^3/uL; WHITE BLOOD COUNT 9.8 x10^3/uL (4.8-10.8)
[2016-12-20 22:24] LABS: CREATININE 0.6 mg/dL (0.4-1.0); URIC ACID 6.3 mg/dL (2.6-7.2)
[2016-12-20 22:28] LABS: UR CULTURE IF IND NOT INDICATED
[2016-12-20] MEDS ORDERED: MORPHINE 10 MG/ML VIAL IVP SCH (22:56)
[2016-12-20] MEDS ORDERED: PROMETHAZINE 25 MG/1 ML VIAL IM SCH (23:00)
[2016-12-20 23:08] LABS: BAND NEUTROPHILS % (MANUAL) 3 %; LYMPHOCYTES % (MANUAL) 17 %; NEUTROPHILS % (MANUAL) 73 %; TOTAL CELLS COUNTED 100
[2016-12-20 23:09] LABS: NP AUTO DIFFERENTIAL? YES; NP MAN DIFFERENTIAL? NO; PLATELET ESTIMATE, MANUAL NORMAL (130-450,000) (NORMAL)
[2016-12-20] MEDS ORDERED: MORPHINE 10 MG/ML VIAL IM SCH (23:13)
[2016-12-20] MEDS ORDERED: PROMETHAZINE INJ 25 MG in SODIUM CHLORIDE 0.9% 50 ML IM SCH (23:45)
[2016-12-20] MEDS ORDERED: PROMETHAZINE INJ 25 MG in SODIUM CHLORIDE 0.9% 50 ML IV SCH (23:45)
[2016-12-21 00:19] VITALS: BP 102/41
== END 2016-12-21 00:10 | disposition home or self-care (01) ==
LOC: WFO 21:26 → OB 21:32 → WFO 12-21 00:10
PROVIDERS: ATTEND Obstetrics & Gynecology
DX: O99.89 Other specified diseases and conditions complicating pregnancy, childbirth and the puerperium (principal); R51 Headache; O10.913 Unspecified pre-existing hypertension complicating pregnancy, third trimester; O24.419 Gestational diabetes mellitus in pregnancy, unspecified control; O09.523 Supervision of elderly multigravida, third trimester; Z3A.36 36 weeks gestation of pregnancy
CPT/HCPCS: 36415; 59025; 81001; 82565; 82570; 83615; 84156; 84450; 84460; 84550; 85025; 87086; 96372; 99214

== ENCOUNTER 2016-12-22 10:38 | Outpatient (CLI) | payer MEDICAID ==
[2016-12-22 11:31] VITALS: BP 137/82
--- NOTE | 2016-12-22 14:38 | DISCHARGE SUMMARY ---
DATE OF ADMISSION: 12/22/2016 CHIEF COMPLAINT: The patient is a 36-year-old 6, para 5, 0-0- 6 woman at 37 weeks gestation who was seen by Dr. Healy and evaluated. Reference her typewritten note. Currently the patient's is a concern because of occasional elevated blood pressures and prior history of pre- eclampsia. The patient has a history of chronic hypertension. Her amniotic fluid index was initially 4.8, but stabilized at 8. Estimated weight was at the 93rd percentile. Complicating this picture is morbid obesity with a BMI over 51 and chronic oxycodone use (10 mg 5 times a day to control back pain). She also has a history of levothyroxine. In her last admission she was given a dose of betamethisone. After evaluation of all these risk factors, it was decided the best venue for delivery would be the [facility] since a possibility of , anesthesia problems, potential drug withdrawal and GDM were considerations. These concerns were explained to the patient. On her office visit she reported decreased movement. She was also concerned about the JOVANA. FBC NST does met criteria and a biophysical profile was 6/8 w normal JOVANA ASSESSMENT: The patient has numerous risk factors which compound to make delivery at [facility] unsafe in her situation. BPP is acceptable for discharge. The patient is set up for visit and evaluation in the [facility]. The patient is discharged home with instructions. JOB #: [id number] EXT JOB #:[id number] HAVEN
--- NOTE | 2016-12-23 08:12 | Ultrasound Report ---
LIMITED OB ULTRASOUND WITH BIOPHYSICAL PROFILE: 12/22/2016 CLINICAL INDICATION: Decreased movement. TECHNIQUE: Real-time scanning was performed with primary care sales representative static images obtained. LAST MENSTRUAL PERIOD 04/06/2016 Clinical Age 37 weeks 1 day US Age --- EFW Hadlock --- EFW% Hadlock --- Heart Rate 135 bpm EDC 01/11/2017 US EDC --- BPD Hadlock --- HC Hadlock --- AC Hadlock --- FL Hadlock --- Presentation --- Placental Location --- Cervical Length --- Amniotic Fluid --- FINDINGS: There is a single viable intrauterine gestation, with heart rate of 135 BPM. JOVANA is normal, measuring 16. The fetus receives 2 points for tone, 2 points for movement, 2 points for amniotic fluid, and 0 points for respiration, yielding a 6/8 biophysical profile. IMPRESSION: NORMAL JOVANA. 6/8 BIOPHYSICAL PROFILE. [facility]
--- NOTE | 2016-12-27 07:41 | Labor Flowsheet ---
Labor Flowsheet Datetime Report Generated by CPN: 12/27/2016 07:41 Datetime: 12/22/2016 18:49 Pulse: 100 SpO2 (%): 100 COMMUNICATION LaborFlag: OB Triage Datetime: 12/22/2016 18:35 VITAL SIGNS NBP Sys/Carmen/Mean (mmHg): 127 : 65 : 79 Datetime: 12/22/2016 13:30 Temperature (F): 98.2 Temperature (C): 36.8 Temperature (C): 36.8 Datetime: 12/20/2016 21:39 Stage of : OB Triage Datetime: 12/17/2016 05:24 ASSESSMENT A Monitor Interventions for FHR: Ultrasound Adjusted Datetime: 12/17/2016 05:22 PATIENT CARE Patient Position/Activity: Left Lateral
== END 2016-12-22 15:30 | disposition home or self-care (01) ==
LOC: WFO 10:38 → FBP 12:21 → WFO 15:30
PROVIDERS: ATTEND Obstetrics & Gynecology
DX: O36.8130 Decreased fetal movements, third trimester, not applicable or unspecified (principal); Z3A.37 37 weeks gestation of pregnancy; O24.419 Gestational diabetes mellitus in pregnancy, unspecified control; O10.913 Unspecified pre-existing hypertension complicating pregnancy, third trimester; O09.523 Supervision of elderly multigravida, third trimester; O99.213 Obesity complicating pregnancy, third trimester; E66.01 Morbid (severe) obesity due to excess calories; Z68.43 Body mass index [BMI] 50.0-59.9, adult; O99.89 Other specified diseases and conditions complicating pregnancy, childbirth and the puerperium; M54.9 Dorsalgia, unspecified; Z79.891 Long term (current) use of opiate analgesic
CPT/HCPCS: 59025; 76815

== ENCOUNTER 2017-06-06 12:09 | Emergency (ER) | payer MEDICAID ==
[2017-06-06 12:19] VITALS: BP 146/79
--- NOTE | 2017-06-06 13:24 | ED Physician Documentation ---
PD HPI URI - Stated complaint Stated Complaint: THROAT PX - Chief complaint Chief Complaint: Heent - History obtained from History obtained from: Patient - History of Present Illness Timing - onset: Other (2 days of sore throat, body aches, fevers and chills without rhinorrhea or cough. She has had recurrent mono. Her daughter has a similar illness and was strep negative.) Review of Systems Ten Systems: 10 systems reviewed and negative Constitutional: reports: Fever, Chills, Fatigue Ears: denies: Ear pain Nose: denies: Rhinorrhea / runny nose, Congestion Throat: reports: Sore throat PD PAST MEDICAL HISTORY - Past Medical History Past Medical History: Yes Endocrine/Autoimmune: HyPOthyroidism Psych: ADD/ADHD Musculoskeletal: Chronic back pain - Past Surgical History Past Surgical History: Yes General: Cholecystectomy - Present Medications Home Medications: Ambulatory Orders Medication Instructions Recorded Confirmed Levothyroxine Sodium 75 mcg PO QDBREAKFAST 04/07/14 07/13/16 Oxycodone HCl 10 mg PO QID 04/07/14 07/13/16 Cyclobenzaprine [Flexeril] 1 tab PO DAILY 10/10/15 07/13/16 Azithromycin [Zithromax] 250 mg PO DAILY #6 tablet 06/06/17 - Allergies Allergies/Adverse Reactions: Allergies Allergy/AdvReac Type Severity Reaction Status Date / Time hydrocodone bitartrate * Allergy Intermediate Rash Verified 10/10/15 11:48 [From Vicodin] ketorolac tromethamine * Allergy Intermediate Rash Verified 10/10/15 11:48 [From Toradol] Penicillins Allergy Intermediate Rash Verified 12/20/16 09:39 shellfish derived Allergy Intermediate Rash Verified 12/20/16 09:39 Tetracyclic Antidepressants Allergy Intermediate Hallucinati Verified 10/10/15 11:48 ons tramadol Allergy Intermediate Rash Verified 12/20/16 09:39 hydromorphone AdvReac Severe Emesis Verified 12/20/16 09:39 prednisone AdvReac Severe Anxiety Verified 12/20/16 09:39 ibuprofen AdvReac Intermediate Bloody Verified 12/20/16 09:39 Stools lactose AdvReac Unknown Verified 10/10/15 11:48 baking soda AdvReac Mild Rash Uncoded 10/10/15 11:48 epsin salt AdvReac Mild Rash Uncoded 10/10/15 11:48 - Social History Does the pt smoke?: No Smoking Status: Never smoker Does the pt drink ETOH?: No Does the pt have substance abuse?: No - Immunizations Immunizations are current?: Yes - POLST Patient has POLST: No PD ED PE NORMAL - Vitals Vital signs reviewed: Yes - General General: Alert and oriented X 3, No acute distress - HEENT HEENT: PERRL, EOMI, Ears normal, Other (Bilateral exudative tonsillitis) - Neck Neck: Supple, no meningeal sign, No bony TTP - Neuro Neuro: Alert and oriented X 3, Normal speech - Psych Psych: Normal mood, Normal affect Results - Vitals Vitals: Vital Signs - 24 hr 06/06/17 12:18 Temperature 37.1 C Heart Rate 94 Respiratory 18 Rate Blood Pressure 146/79 H O2 Saturation 96 Oxygen O2 Source Room air - Labs Labs: Laboratory Tests 06/06/17 06/06/17 12:15 13:56 Infectious Placer Assay NEGATIVE Group A Strep Rapid Negative Departure - Departure Disposition: Home, Self Care Clinical Impression: Pharyngitis Qualifiers: Pharyngitis/tonsillitis etiology: unspecified etiology Qualified Code(s): J02.9 - Acute pharyngitis, unspecified Condition: Good Record reviewed to determine appropriate education?: Yes Instructions: ED Strep Pharyngitis Poss Prescriptions: Azithromycin [Zithromax] 250 mg PO DAILY #6 tablet Comments: Call your doctor to arrange a follow-up appointment, make the next available appointment. In the interim, return anytime if worse or if new symptoms develop. Your blood pressure was elevated today on check into the emergency department. This does not mean that you have hypertension, it is a common phenomenon to come to the emergency department and have elevated blood pressure. I recommend that you see your primary care physician within the week to have it rechecked when you are feeling better.
== END 2017-06-06 14:37 | disposition home or self-care (01) ==
LOC: ED 12:09
DX: J02.9 Acute pharyngitis, unspecified (principal); R03.0 Elevated blood-pressure reading, without diagnosis of hypertension; E03.9 Hypothyroidism, unspecified
CPT/HCPCS: 86308; 87070; 87077; 87430; 99283

== ENCOUNTER 2017-09-08 08:00 | Outpatient (CLI) | payer MEDICAID | END 2017-09-08 08:01 | disposition home or self-care (01) | LOC: LAB.N 08:00 | PROVIDERS: ATTEND Nurse Practitioner Gerontology | DX: E03.9 Hypothyroidism, unspecified (principal) | CPT/HCPCS: 36415; 84443 ==

== ENCOUNTER 2018-07-16 09:36 | Outpatient (CLI) | payer MEDICAID ==
--- NOTE | 2018-07-16 15:55 | XRAY Report ---
Reason: LEFT KNEE PAIN Procedure Date: 07/16/2018 Accession Number: [id number] / [id number] Procedure: XR - Knee 2 View LT CPT Code: FULL RESULT: EXAM: LEFT KNEE RADIOGRAPHY EXAM DATE: 07/16/2018 09:50 AM. CLINICAL HISTORY: LEFT KNEE PAIN. COMPARISON: None. TECHNIQUE: 2 views. FINDINGS: Bones: No fractures or bone lesions. Joints: Small suprapatellar effusion. No subluxations. Minimal early spurring along the medial knee joint. Soft Tissues: No soft tissue swelling. IMPRESSION: Small suprapatellar effusion. Minimal early degenerative change along the medial knee joint. Otherwise negative left Knee radiography. [facility]
== END 2018-07-16 09:37 | disposition home or self-care (01) ==
LOC: DI 09:36
PROVIDERS: ATTEND Anesthesiology Pain Medicine
DX: M25.462 Effusion, left knee (principal)

== ENCOUNTER 2018-07-22 12:56 | Emergency (ER) | payer OTHER, MEDICAID ==
[2018-07-22 13:04] VITALS: BP 145/87
--- NOTE | 2018-07-22 13:34 | ED Physician Documentation ---
History of Present Illness - Stated complaint Stated Complaint: BUMP ON ARM - Chief complaint Chief Complaint: General - History obtained from History obtained from: Patient - History of Present Illness Timing: How many days ago (2) Pain level max: 8 Pain level now: 8 - Additonal information Additional information: 38-year-old female presents to the emergency department with a right wrist injury at work 2 days ago. She states she was cleaning a bedside table felt "a rubber band snap" in the right wrist and has had pain since that time. Now swelling. Better with rest and worse with movement. Review of Systems Constitutional: denies: Fever GI: denies: Vomiting, Diarrhea Skin: denies: Rash Musculoskeletal: denies: Neck pain, Back pain PD PAST MEDICAL HISTORY - Past Medical History Past Medical History: Yes Endocrine/Autoimmune: HyPOthyroidism Psych: ADD/ADHD Musculoskeletal: Chronic back pain - Past Surgical History Past Surgical History: Yes General: Cholecystectomy - Present Medications Home Medications: Ambulatory Orders Medication Instructions Recorded Confirmed Levothyroxine Sodium 75 mcg PO QDBREAKFAST 04/07/14 07/22/18 Oxycodone HCl 10 mg PO QID 04/07/14 07/22/18 Cyclobenzaprine [Flexeril] 1 tab PO DAILY 10/10/15 07/22/18 - Allergies Allergies/Adverse Reactions: Allergies Allergy/AdvReac Type Severity Reaction Status Date / Time hydrocodone bitartrate * Allergy Intermediate Rash Verified 07/22/18 13:04 [From Vicodin] ketorolac tromethamine * Allergy Intermediate Rash Verified 07/22/18 13:04 [From Toradol] Penicillins Allergy Intermediate Rash Verified 07/22/18 13:04 shellfish derived Allergy Intermediate Rash Verified 07/22/18 13:04 Tetracyclic Antidepressants Allergy Intermediate Hallucinati Verified 07/22/18 13:04 ons tramadol Allergy Intermediate Rash Verified 07/22/18 13:04 hydromorphone AdvReac Severe Emesis Verified 07/22/18 13:04 prednisone AdvReac Severe Anxiety Verified 07/22/18 13:04 ibuprofen AdvReac Intermediate Bloody Verified 07/22/18 13:04 Stools lactose AdvReac Unknown Verified 07/22/18 13:04 baking soda AdvReac Mild Rash Uncoded 10/10/15 11:48 epsin salt AdvReac Mild Rash Uncoded 10/10/15 11:48 - Social History Does the pt smoke?: No Smoking Status: Never smoker Does the pt drink ETOH?: No Does the pt have substance abuse?: No - Immunizations Immunizations are current?: Yes - POLST Patient has POLST: No PD ED PE NORMAL - Vitals Vital signs reviewed: Yes - General General: Alert and oriented X 3, No acute distress - HEENT HEENT: Moist mucous membranes - Neck Neck: Supple, no meningeal sign - Cardiac Cardiac: RRR - Respiratory Respiratory: No respiratory distress, Clear bilaterally - Derm Derm: Warm and dry - Extremities Extremities: Other (r wrist - Swelling and tenderness proximal to the distal aspect of the radius, this is on the dorsum of the forearm. Approximately 1 x 2 cm area. No skin changes. No erythema. No streaking. Neurovascularly intact.) - Neuro Neuro: Alert and oriented X 3 Results - Vitals Vitals: Vital Signs - 24 hr 07/22/18 13:02 Temperature 36.5 C Heart Rate 79 Respiratory 18 Rate Blood Pressure 145/87 H O2 Saturation 99 Oxygen O2 Source Room air PD MEDICAL DECISION MAKING - ED course Complexity details: considered differential, d/w patient ED course: 38-year-old female with what appears to be a intramuscular hematoma on ultrasound of the wrist. At this is a bedside ultrasound. No overlying skin changes to suggest abscess. No evidence of cellulitis. We will trial her in a splint and see how she progresses. She is on oxycodone at home. L and I paperwork filled out. Patient counseled regarding signs and symptoms for which I believe and urgent re-evaluation would be necessary. Patient with good understanding of and agreement to plan and is comfortable going home at this time This document was made in part using voice recognition software. While efforts are made to proofread this document, sound alike and grammatical errors may occur. She has full range of motion of all fingers on the right hand. Departure - Departure Disposition: 01 Home, Self Care Clinical Impression: Traumatic hematoma of right wrist Qualifiers: Encounter type: initial encounter Qualified Code(s): S60.211A - Contusion of right wrist, initial encounter Condition: Good Instructions: ED Sprain Wrist Follow-Up: Kera Cosby ARNP [Primary Care Provider] - [facility] [Provider Group] - Within 1 week Comments: Wear the Velcro thumb spica for comfort. It will help this to heal faster. Continue your pain medications at home. Is important you follow-up with orthopedics to have your hand function retested once the swelling has gone down. Make an appointment with them next week. Forms: Activity restrictions Discharge Date/Time: 07/22/18 13:48
== END 2018-07-22 13:48 | disposition home or self-care (01) ==
LOC: ED 12:56
DX: S60.211A Contusion of right wrist, initial encounter (principal); W22.09XA Striking against other stationary object, initial encounter; E03.9 Hypothyroidism, unspecified
CPT/HCPCS: 99283

== ENCOUNTER 2018-10-11 09:08 | Outpatient (CLI) | payer MEDICAID ==
[2018-10-11 09:35] LABS: BASOPHILS # (AUTO) 0.1 10^3/uL (0.0-0.1); BASOPHILS % (AUTO) 0.9 %; EOSINOPHILS # (AUTO) 0.3 10^3/uL (0.0-0.7); EOSINOPHILS % (AUTO) 3.2 %; HGB - HEMOGLOBIN 14.5 g/dL (12.0-16.0); LYMPHOCYTES % (AUTO) 36.5 %; MEAN CORPUSCULAR HEMOGLOBIN 27.6 pg (27.0-31.0); MEAN CORPUSCULAR VOLUME 83.7 fL (81.0-99.0); MEAN PLATELET VOLUME 7.3 fL (7.9-10.8); MONOCYTES # (AUTO) 0.4 10^3/uL (0.0-1.0); MONOCYTES % (AUTO) 5.3 %; NEUTROPHILS # (AUTO) 4.4 10^3/uL (1.5-6.6); NEUTROPHILS % (AUTO) 54.1 %; PLT - PLATELET COUNT 314 10^3/uL (130-450); RED BLOOD COUNT 5.26 10^6/uL (4.20-5.40); RED CELL DISTRIBUTION WIDTH 14.1 % (12.0-15.0); WHITE BLOOD COUNT 8.2 x10^3/uL (4.8-10.8)
[2018-10-11 09:49] LABS: ALBUMIN 4.4 g/dL (3.2-5.5); ALBUMIN/GLOBULIN RATIO 1.5 (1.0-2.2); ALKALINE PHOSPHATASE 63 IU/L (42-121); ALT ALANINE AMINOTRANSFERASE 25 IU/L (10-60); AST ASPARTATE AMINOTRANSFERASE 22 IU/L (10-42); BILIRUBIN,TOTAL 0.6 mg/dL (0.2-1.0); BUN - BLOOD UREA NITROGEN 20 mg/dL (6-20); CALCIUM 8.9 mg/dL (8.5-10.3); CARBON DIOXIDE - CO2 24 mmol/L (21-32); CHLORIDE 98 mmol/L (101-111); CHOL/HDL RATIO 3.9 (<4.4); CHOLESTEROL 180 mg/dL; CREATININE 0.8 mg/dL (0.4-1.0); GFR - MDRD 80 (>89); GLUCOSE 114 mg/dL (70-100); HDL CHOLESTEROL 46 mg/dL; HEMOGLOBIN A1C 0.59 g/dL; HEMOGLOBIN A1C % 5.5 % (4.6-6.2); LDL CHOLESTEROL,CALCULATED 117 mg/dL; LDL/HDL RATIO 2.5 (<4.4); SODIUM 134 mmol/L (135-145); TOTAL PROTEIN 7.4 g/dL (6.7-8.2); VLDL CHOLESTEROL 17 mg/dL
[2018-10-11 10:41] LABS: BILIRUBIN,URINE NEGATIVE (NEGATIVE); GLUCOSE, URINE (UA) NEGATIVE (NEGATIVE); KETONES,URINE (UA) NEGATIVE (NEGATIVE); LEUKOCYTE ESTERASE, URINE NEGATIVE (NEGATIVE); NITRITE,URINE NEGATIVE (NEGATIVE); OCCULT BLOOD,URINE NEGATIVE (NEGATIVE); PH,URINE 5.5 PH (5.0-7.5); PROTEIN,URINE NEGATIVE (NEGATIVE); UROBILINOGEN,URINE 0.2 (NORMAL) E.U./dL (NORMAL)
[2018-10-11 10:46] LABS: CLARITY,URINE CLEAR (CLEAR)
== END 2018-10-11 09:09 | disposition home or self-care (01) ==
LOC: LAB 09:08
PROVIDERS: ATTEND Family Medicine
DX: I10 Essential (primary) hypertension (principal); M17.12 Unilateral primary osteoarthritis, left knee; F90.9 Attention-deficit hyperactivity disorder, unspecified type; M54.2 Cervicalgia; Z13.89 Encounter for screening for other disorder; E03.9 Hypothyroidism, unspecified; E66.8 Other obesity
CPT/HCPCS: 36415; 80053; 80061; 81001; 81003; 83036; 83721; 84443; 85025

== ENCOUNTER 2019-03-02 04:47 | Emergency (ER) | payer OTHER, MEDICAID ==
[2019-03-02 05:02] VITALS: BP 154/85
--- NOTE | 2019-03-02 05:22 | ED Physician Documentation ---
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 No: Anticoagulated, Prior ortho surgery Similar symptoms before: Has not had sx before Recently seen: Not recently seen - Treatment prior to arrival Treatment prior to arrival: naproxen Review of Systems Ten Systems: 10 systems reviewed and negative Constitutional: denies: Fever Cardiac: denies: Chest pain / pressure Respiratory: denies: Dyspnea GI: reports: Reviewed and negative Skin: reports: Reviewed and negative Musculoskeletal: reports: Extremity pain, Joint pain. 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 : None HEENT: None Psych: ADD/ADHD Musculoskeletal: Chronic back pain Derm: None - Past Surgical History Past Surgical History: Yes General: Cholecystectomy - Present Medications Home Medications: Ambulatory Orders Medication Instructions Recorded Confirmed Levothyroxine Sodium 75 mcg PO QDBREAKFAST 04/07/14 07/22/18 Oxycodone HCl 10 mg PO QID 04/07/14 07/22/18 Cyclobenzaprine [Flexeril] 1 tab PO DAILY 10/10/15 07/22/18 - Allergies Allergies/Adverse Reactions: Allergies Allergy/AdvReac Type Severity Reaction Status Date / Time hydrocodone bitartrate * Allergy Intermediate Rash Verified 03/02/19 05:02 [From Vicodin] ketorolac tromethamine * Allergy Intermediate Rash Verified 03/02/19 05:02 [From Toradol] Penicillins Allergy Intermediate Rash Verified 03/02/19 05:02 shellfish derived Allergy Intermediate Rash Verified 03/02/19 05:02 Tetracyclic Antidepressants Allergy Intermediate Hallucinati Verified 03/02/19 05:02 ons tramadol Allergy Intermediate Rash Verified 03/02/19 05:02 hydromorphone AdvReac Severe Emesis Verified 03/02/19 05:02 prednisone AdvReac Severe Anxiety Verified 03/02/19 05:02 ibuprofen AdvReac Intermediate Bloody Verified 03/02/19 05:02 Stools lactose AdvReac Unknown Verified 03/02/19 05:02 baking soda AdvReac Mild Rash Uncoded 10/10/15 11:48 epsin salt AdvReac Mild Rash Uncoded 10/10/15 11:48 - Social History Does the pt smoke?: No Smoking Status: Never smoker Does the pt drink ETOH?: No Does the pt have substance abuse?: No - Immunizations Immunizations are current?: Yes - POLST Patient has POLST: No PD ED PE NORMAL - Vitals Vital signs reviewed: Yes - General General: Alert and oriented X 3, No acute distress, Well developed/nourished - HEENT HEENT: Atraumatic, Pharynx benign - Neck Neck: Supple, no meningeal sign - Cardiac Cardiac: RRR - Respiratory Respiratory: No respiratory distress - Abdomen Abdomen: Non distended - Female Female : Deferred - Rectal Rectal: Deferred - Derm Derm: Normal color, Warm and dry, No rash - Extremities Extremities: No deformity, No edema - Neuro Neuro: Alert and oriented X 3 Eye Opening: Spontaneous Motor: Obeys Commands Verbal: Oriented GCS Score: 15 - Psych Psych: Normal mood, Normal affect PD ED PE EXPANDED - Extremities Extremities: Tenderness, Right shoulder (tenderness over R medial shoulder, pain with empty can test and over head extension, pt has full ROM including extension and abduction. No weakness), Motor intact, Sensory intact, Vascular intact. No: Deformity, Limited ROM, Swelling, Bruising, Abrasion, Laceration Results - Vitals Vitals: Vital Signs - 24 hr 03/02/19 04:57 Temperature 36.9 C Heart Rate 73 Respiratory 17 Rate Blood Pressure 154/85 H O2 Saturation 98 Oxygen O2 Source Room air PD MEDICAL DECISION MAKING - ED course Complexity details: considered differential, d/w patient ED course: ddx- R shoulder fx, R shoulder sprain, Cervical radiculopathy, Rotator cuff sprain or injury, Calcific tendonitis 39 y/o F with hx and exam as documented. No hx of trauma. Doubt utility of shoulder xray given this appears to be a sprain and ligamentous injury. Advised RICE, NSAIDs. Pt may return to work with lifting as tolerated, advised limited heavy lifting and overhead exercises Departure - Departure Disposition: 01 Home, Self Care Clinical Impression: Sprain of shoulder, right Qualifiers: Encounter type: sequela Shoulder sprain type: rotator cuff capsule Qualified Code(s): S43.421S - Sprain of right rotator cuff capsule, sequela Condition: Stable Record reviewed to determine appropriate education?: Yes Instructions: Rotator Cuff Injury Follow-Up: Pako Rockwell MD [Primary Care Provider] - Within 1 week Comments: Your exam is consistent with a rotator cuff sprain. You can treat this with rest, ice, and NSAIDs such as naproxen. You can continue to work but should follow up with your doctor for a recheck. Return to the ED if you develop weakness or numbness of the arm. Forms: Activity restrictions Discharge Date/Time: 03/02/19 05:27
== END 2019-03-02 05:27 | disposition home or self-care (01) ==
LOC: ED 04:47
DX: S43.421A Sprain of right rotator cuff capsule, initial encounter (principal); Y93.E9 Activity, other interior property and clothing maintenance; Y92.238 Other place in hospital as the place of occurrence of the external cause
CPT/HCPCS: 1040M; 99282

== ENCOUNTER 2019-03-05 05:44 | Emergency (ER) | payer MEDICAID ==
[2019-03-05 06:14] VITALS: BP 158/85
[2019-03-05] MEDS ORDERED: DOXYCYCLINE 100 MG TABLET PO STA (06:56)
--- NOTE | 2019-03-05 07:00 | ED Physician Documentation ---
PD HPI SKIN - Stated complaint Stated Complaint: LEFT SIDE FACE LUMP - Chief complaint Chief Complaint: Wound - History obtained from History obtained from: Patient - History of Present Illness Timing - onset: How many weeks ago (2) Timing - duration: Weeks (2) Timing - details: Gradual onset (had lump on left cheek, not tender,slowly growing. Today had feeling of it 'moving water in it" briefly and then it was some tender. Andnow geting dark/bruised look to it.) Location: Face (left cheek) Quality / character: Painful, Discolored, Raised Associated symptoms: No: Fever, Headache, N/V/D Contributing factors: Unknown (was talking on phone wwith phone rubbing it a little.). No: Recent illness Similar symptoms before: No diagnosis (has had smalll firm lump there for awhile, not tender. Thought it a cyst. 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 : None HEENT: None Psych: ADD/ADHD Musculoskeletal: Chronic back pain Derm: None - Past Surgical History Past Surgical History: Yes General: Cholecystectomy - Present Medications Home Medications: Ambulatory Orders Medication Instructions Recorded Confirmed Oxycodone HCl 10 mg PO QID 04/07/14 03/05/19 Dextroamphetamine/Amphetamine 15 mg PO BID 03/05/19 03/05/19 [Adderall 15 mg Tablet] Doxycycline Hyclate 100 mg PO BID #14 capsule 03/05/19 Gabapentin 300 mg PO TID 03/05/19 03/05/19 Levothyroxine Sodium [Synthroid] 88 mcg PO DAILY 03/05/19 03/05/19 Naproxen 500 mg PO BID 03/05/19 03/05/19 tiZANidine [Zanaflex] 4 mg PO TID 03/05/19 03/05/19 - Allergies Allergies/Adverse Reactions: Allergies Allergy/AdvReac Type Severity Reaction Status Date / Time amphetamine Allergy Intermediate Rash Verified 03/05/19 06:08 [From Adderall XR] dextroamphetamine Allergy Intermediate Rash Verified 03/05/19 06:08 [From Adderall XR] hydrocodone bitartrate * Allergy Intermediate Rash Verified 03/02/19 05:02 [From Vicodin] ketorolac tromethamine * Allergy Intermediate Rash Verified 03/02/19 05:02 [From Toradol] Penicillins Allergy Intermediate Rash Verified 03/02/19 05:02 shellfish derived Allergy Intermediate Rash Verified 03/02/19 05:02 Tetracyclic Antidepressants Allergy Intermediate Hallucinati Verified 03/02/19 05:02 ons tramadol Allergy Intermediate Rash Verified 03/02/19 05:02 hydromorphone AdvReac Severe Emesis Verified 03/02/19 05:02 prednisone AdvReac Severe Anxiety Verified 03/02/19 05:02 ibuprofen AdvReac Intermediate Bloody Verified 03/02/19 05:02 Stools lactose AdvReac Unknown Verified 03/02/19 05:02 baking soda AdvReac Mild Rash Uncoded 10/10/15 11:48 epsin salt AdvReac Mild Rash Uncoded 10/10/15 11:48 - Social History Does the pt smoke?: No Smoking Status: Never smoker Does the pt drink ETOH?: No Does the pt have substance abuse?: No - Immunizations Immunizations are current?: Yes - POLST Patient has POLST: No PD ED PE NORMAL - Vitals Vital signs reviewed: Yes - General General: Alert and oriented X 3, No acute distress, Well developed/nourished - HEENT HEENT: Ears normal, Pharynx benign - Neck Neck: Supple, no meningeal sign, No adenopathy - Derm Derm: Normal color, Warm and dry, Other (left cheek with subcut firm area about less than one cm size, without fluctuance. Has bruising color purple showing up in skin over it. Bedside U/S showed thickness with inderation c/w likely small hematoma. No fluidish. I do not think it is abscess/infection per se. Not red nor warm.) Results - Vitals Vitals: Vital Signs - 24 hr 03/05/19 03/05/19 05:56 06:13 Temperature 36.8 C Heart Rate 74 Respiratory 17 Rate Blood Pressure 158/85 H O2 Saturation 99 Oxygen O2 Source Room air PD MEDICAL DECISION MAKING - ED course Complexity details: considered differential (likely small kaye cyst that had small bleed and is now some bruising. Does not seem infected though consider some infection to it. Very small and not watery by U/S so did not see need for incision. ), d/w patient Departure - Departure Disposition: 01 Home, Self Care Clinical Impression: Cyst of face Condition: Stable Record reviewed to determine appropriate education?: Yes Follow-Up: Pako Rockwell MD [Primary Care Provider] - Prescriptions: Doxycycline Hyclate 100 mg PO BID #14 capsule Comments: It sounds like this was a facial cyst apparently bled and has a small hematoma of it. That would account for some of the firmness of it and the bruising color. It may be just mechanically irritated a blood vessel with this in the bleeding. However infection could be a possibility and we can treated with some antibiotics. I do not see any drainable fluid collection by ultrasound. Warm moist towels to the area periodically. Doxycycline twice daily for 5 to 7 days. Recheck if not improving well over the next several days or so. Discharge Date/Time: 03/05/19 07:13
== END 2019-03-05 07:13 | disposition home or self-care (01) ==
LOC: ED 05:44
DX: L72.3 Sebaceous cyst (principal)
CPT/HCPCS: 99282; 99283; A9270

== ENCOUNTER 2019-03-08 23:28 | Outpatient (CLI) | payer MEDICAID ==
[2019-03-08 23:58] LABS: CALCIUM 9.2 mg/dL (8.5-10.3); CREATININE 0.8 mg/dL (0.4-1.0)
[2019-03-09 00:17] LABS: THYROID STIMULATING HORMONE 1.15 uIU/mL (0.34-5.60)
[2019-03-09 00:19] LABS: FREE T4 (FREE THYROXINE) 1.12 ng/dL (0.58-1.64)
== END 2019-03-08 23:29 | disposition home or self-care (01) ==
LOC: LAB 23:28
PROVIDERS: ATTEND Internal Medicine
DX: E03.9 Hypothyroidism, unspecified (principal); I10 Essential (primary) hypertension; R21 Rash and other nonspecific skin eruption
CPT/HCPCS: 36415; 80048; 84439; 84443

== ENCOUNTER 2019-06-28 11:17 | Outpatient (CLI) | payer MEDICAID ==
[2019-06-28 23:04] VITALS: BP 147/98
--- NOTE | 2019-06-28 23:04 | SLEEP CARE CONSULTATION ---
Information from patient questionnaire entered by Tori Almonte. I have reviewed and concur with the information entered by Tori Almonte. This document represents the service I personally performed and the decisions made by me, Blane Samuel MD, [facility]. History of Present Illness Reason for Visit: New patient Chief Complaint: reports: Other (referred by Dr. Rockwell due to weight) Usual bedtime: [id number] Time it takes to fall asleep: 5-10 minutes Snores at night: Yes Observed to quit breathing while asleep: No Sleeps alone due to snoring: No Number of times waking at night: 0-2 Reasons for waking at night: reports: Pain (chronic), Bathroom, Other (son) Toss, Turn, or Twitch while sleeping: No Recalls having dreams: Yes Usually gets out of bed at: [id number] not working, 1930 working Morning headache: Yes (chronic due to neck injury 2010) Sleepy or fatigued during the day: Yes Ever fallen asleep while driving: No Takes day naps: Yes (sometimes) Dreams during day naps: Yes Prior sleep studies: Yes Year and Where: 2011 [facility] Additional HPI information: I had the pleasure of seeing Ms. Wheat today regarding the possibility of her having a sleep disorder. As you know, she is a 39 year old lady who complains of snore and excessive daytime sleepiness. She reports sleeping up to 18 hours at a time. 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 She had a sleep study here in 2011 that was negative for sleep disrupting conditions (her complaint at that time was insomnia). Since then she has gained about 100 lbs. The patient tells me that she normally goes to bed around 9 - 10 pm, and it take s her approximately 5 - 10 minutes to fall asleep. She has been told that she snores loudly at night. She has never been observed to stop breathing in her sleep. Her spouse can still sleep in the same bed. She can recall waking up on the average of 0 - 2 times during the night. Most of the time she wakes up because of her son who sleeps in the same bed. She has never awakened because of her own snoring, choking, or having to gasp for air. There is not a lot of tossing and turning in her sleep. No somniloquy (sleep talking) or somnambulism (sleep walking). Generally she can recall having dreams. In the morning she usually gets up out of the bed around 7 - 8 a.m. not feeling refreshed nor rested. She reports having a morning headache. During the day she complains of feeling sleepy and fatigued. Her score on [place] Sleepiness Scale is 9 out of 24. She has never fallen asleep while driving nor has had any accident due to sleepiness. She usually takes naps during the day. Upon falling asleep during the day she reports having dreams. She reports having impaired concentration during the day. 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 Patient is Legally and lives in [place]. Have you smoked in the past 12 months: No Cigarettes per day (20/pack): 20 Years of smokin Quit date: 04/2012 Smoking Pack Years: 20.0 Alcohol use: No Caffeine use: Yes Caffeine amount and frequency: 2-3 times/day Family History Family history of sleep disordered breathing: Yes Family Hx Sleep Apnea: Mother: Snoring, Father: Snoring Allergies and Home Medications Drug allergies reviewed: Yes Home medication list reviewed: Yes Allergy and home medication list: Meds: levothyroxine, oxycodone, gabapentin, Xanaflex, Naproxen, Adderall 30 mg Allergies: antidepressants, vicodin, dilaudid, Tramadol, Toridol, penicillin, erythromycin, lithium, predinisone Review of Systems Weight gain over past 5 years: 100 Cardiovascular: denies: high blood pressure, palpitations, chest pain, irregular heart rate or pulse, leg or foot swelling, have to sleep sitting up, other Respiratory: denies: shortness of breath, wheeze, sputum production, chronic cough, other Gastrointestinal: denies: heartburn, difficulty swallowing, nausea, vomitting, diarrhea, abdominal pain, other Urinary: denies: incontinence, frequency, urgency, impotence, other Neurological: reports: headaches Psychiatric: reports: Attention Deficit Hyperactivity, anxiety, depression Ear/Nose/Throat: reports: wisdom teeth removed Endocrine: reports: thyroid disease, sluggishness Musculoskeletal: reports: joint pain, neck pain, back pain, joint swelling, muscle pain or cramping, mobility problems Immunologic: reports: rash (face), allergies to food or environment Physical Exam Vital signs obtained and entered by: Dr. Samuel Blood Pressure: 147/98 Cuff size: regular Heart Rate: 67 O2 Saturation: 97 Height: 5 ft 10 in Weight: 395 lb Weight change since last visit: +75 Body Mass Index: 56.7 BMI Classification: Obesity Class 3 Neck circumference: 17.5 Mood/affect: Normal HEENT: No craniofacial malformation Nostrils: patent to airflow Turbinates: normal Septum: midline Mouth and throat: narrow oropharynx Soft palate: long Hard palate: normal Uvula: normal Uvula visualization: 50% Mallampati Class II Tongue: normal in size Tonsils: small Chin and jaw: normal size and position Neck: normal w/o lymphadenopathy or thyromegaly Heart: regular rate and rhythm Lungs: clear bilaterally Abdomen: soft, non-tender Extremities: no edema or clubbing Neurologic: intact, no focal deficits Impression and Plan IMPRESSION: 1. Obstructive Sleep Apnea-Hypopnea Syndrome, as suggested by history of loud snoring, morning headache, unrefreshed sleep, cognitive impairment, and daytime hypersomnolence. Narrow oropharynx and obesity are common predisposing factors for obstructive sleep apnea-hypopnea syndrome. Pathophysiology of sleep- disordered breathing was discussed. I recommend proceeding to polysomnography to confirm the diagnosis and to assess severity. If she has significant sleep disordered breathing, a manual CPAP titration study will also be performed to find the optimal treatment pressure. I informed the patient of what the sleep studies involve and after some discussion, she agreed to proceed. Plan: 1. Schedule an in-laboratory polysomnography. 2. Avoid long distance driving or when feeling sleepy. 3. Avoid alcohol, sedative and muscle relaxant around bedtime. 4. Attempt to lose weight. 5. Return in 1 to 2 weeks after the study to discuss results and initiate therapy I spent 100% of this visit face to face with the patient with greater than 50% of this was spent time counseling the patient and coordination of care.
== END 2019-06-28 11:18 | disposition home or self-care (01) ==
LOC: SC 11:17
PROVIDERS: ATTEND Internal Medicine Pulmonary Disease
DX: G47.10 Hypersomnia, unspecified (principal); R06.83 Snoring; R51 Headache; R41.89 Other symptoms and signs involving cognitive functions and awareness; E66.9 Obesity, unspecified; Z68.43 Body mass index [BMI] 50.0-59.9, adult
CPT/HCPCS: 99203; 99212

== ENCOUNTER 2019-07-16 19:24 | Outpatient (CLI) | payer MEDICAID | END 2019-07-16 19:25 | disposition home or self-care (01) | LOC: SC 19:24 | PROVIDERS: ATTEND Internal Medicine Pulmonary Disease | DX: G47.33 Obstructive sleep apnea (adult) (pediatric) (principal); E66.9 Obesity, unspecified; Z68.43 Body mass index [BMI] 50.0-59.9, adult | CPT/HCPCS: 95810 ==

== ENCOUNTER 2019-07-25 13:16 | Outpatient (CLI) | payer MEDICAID ==
[2019-07-25 14:16] VITALS: BP 120/80
--- NOTE | 2019-07-25 14:16 | SLEEP CARE CONSULTATION ---
Information from patient questionnaire entered by Jennifer Diaz. I have reviewed and concur with the information entered by Jennifer Diaz. This document represents the service I personally performed and the decisions made by me, Georgia Plasencia RN, MSN, [employer]. History of Present Illness Initial [place] Sleepiness Scale score: 14 Current [place] Sleepiness Scale score: 5 Additional HPI information: NATI ALMAGUER returns with her 2 year old son for follow up and results of the recently performed polysomnography. I explained the pathophysiology behind obstructive sleep apnea. We then spent quite a bit of time discussing different treatment options. For mild obstructive sleep apnea, surgery and oral appliance are alternatives to nasal CPAP therapy but in moderate or severe cases, nasal CPAP is the most effective and reliable treatment. Because apnea is primarily in supine position, then positional management therapy could be effective. Methods discussed such as positioning with pillows, using a T-shirt with tennis balls in the back, and shown commercial products that have a pillow format on back to prevent supine sleep. I reviewed the impact of weight changes on sleep apnea and strongly recommended losing weight. After some discussion, the patient opted to go with the nasal CPAP therapy. Nasal autoCPAP set at [id number] will be ordered with rationale explained. A manual titration study will be ordered if unable to find optimal pressure with office adjustments. I explained how CPAP machine works with sample devices RespirEasel Learns Dreamstation and ResReadyDock [id number] and what to expect when using the machine. Using CPAP every night in order to get used to it was emphasized. Patient advised to put CPAP mask on before getting into bed so as not to fall asleep without CPAP. To assist acclimation to CPAP use, it could also be used for a short time during day while reading or watching TV. The patient was instructed to call the CPAP supplier to discuss any mechanical problem that may occur. If the mask given is uncomfortable or is difficult to keep on through the night even with adjustment, contact the CPAP supplier as many will replace with another mask style if notified before 30 days. If snoring or perceives is not getting enough air or too much air from the machine, notify this office. [facility] patient education PAP tips reviewed and given to patient. Patient counseled not drink alcohol less than 4 hours before bedtime as it can increase snoring and apnea. Patient does not drink alcohol. Patient was cautioned about risks of drowsy driving until sleepiness symptoms resolve. Patient denies drowsy driving. [facility] patient education on snoring and sleep apnea given and reviewed. Sleep Study - Results Polysomnography/Home Sleep Study results: The quality of the study is good. The patient had normal sleep efficiency. Except for mild sleep fragmentation, the sleep architecture was normal as well. Respiratory monitoring showed moderate obstructive sleep apnea-hypopnea (AHI = 16.5) associated with frequent arousals, oxyhemoglobin desaturation and mild hypoxia (chayo oxygen saturation of 85%). The patient only slept supine during this study (supine AHI = 16.5; non-supine = 0.00). Snore was moderate to loud in intensity. There was no significant periodic leg movement of sleep. Cardiac rhythm was normal sinus rhythm without significant arrhythmia. No abnormal behavior (parasomnia) observed during the night. Allergies and Home Medications Known drug allergies: Yes (long list ) Home medication list reviewed: Yes Review of Systems Review of systems same as previous: Yes Physical Exam Blood Pressure: 120/80 Cuff size: wrist Heart Rate: 82 O2 Saturation: 98 Height: 5 ft 10 in Weight: 392 lb Body Mass Index: 56.2 BMI Classification: Morbidly Obese Impression and Plan 1. Obstructive Sleep Apnea-Hypopnea Syndrome, moderate, with lowest oxygen saturation of 85%. Obviously this is the cause of the patients symptoms of unrefreshed sleep and [excessive daytime sleepiness. Positive pressure therapy could benefit []. As mentioned above, the patient will be started on nasal autoCPAP therapy with pressure set at [id number]. A manual titration study will be completed if unable to find optimal treatment pressure with office adjustments. Compliance guidelines also reviewed. A copy of compliance guidelines will be given for reference at check out. Because it is unknown if her apnea risk is less or same in non-supine position, she is instructed to sleep with head of bed elevated at least 30-40 degrees to reduce apnea risk. Patient states this is current practice at home. * Nasal auto CPAP therapy, pressure at 4-20 cm H2O. * Attempt to lose weight. * Avoid alcohol consumption near bedtime. * Elevate head of bed until using CPAP. * The patient is again cautioned about driving until sleepiness completely resolves. * Return one month after CPAP obtained. I will assess response to therapy and compliance at that time. Time Spent with Patient (minutes): 35 I spent 100% of this visit face to face with the patient with greater than 50% of this was spent time counseling the patient and coordination of care.
== END 2019-07-25 13:17 | disposition home or self-care (01) ==
LOC: SC 13:16
PROVIDERS: ATTEND Nurse Practitioner Family
DX: G47.33 Obstructive sleep apnea (adult) (pediatric) (principal); E66.01 Morbid (severe) obesity due to excess calories; Z68.43 Body mass index [BMI] 50.0-59.9, adult
CPT/HCPCS: 99212; 99214

== ENCOUNTER 2019-08-04 12:17 | Outpatient (CLI) | payer MEDICAID ==
--- NOTE | 2019-08-04 15:54 | XRAY Report ---
Reason: LEFT KNEE PAIN Procedure Date: 08/04/2019 Accession Number: [id number] / [id number] Procedure: XR - Knee 3 View LT CPT Code: Final Report FULL RESULT: EXAM: LEFT KNEE RADIOGRAPHY EXAM DATE: 08/04/2019 12:20 PM. CLINICAL HISTORY: LEFT KNEE PAIN. COMPARISON: KNEE 2 VIEW LT 07/16/2018 9:40 AM. TECHNIQUE: 3 views. FINDINGS: Bones: Marginal osteophytes at the medial femoral condyle and medial tibial plateau. No acute fracture or bone lesion. Joints: Moderate medial compartment narrowing. No subluxations. Small joint effusion. Soft Tissues: Normal. No soft tissue swelling. IMPRESSION: 1. Left knee osteoarthritis which is most significant at the medial compartment and has increased slightly since the prior study. Kellgren Arcadio Grade 2-3. Kellgren and Arcadio classification of osteoarthritis: Grade 0: no radiographic features of osteoarthritis are present Grade 1: doubtful joint space narrowing (JSN) and possible osteophytic lipping Grade 2: definite osteophytes and possible JSN on anteroposterior weight-bearing radiograph Grade 3: multiple osteophytes, definite JSN, sclerosis, possible bony deformity Grade 4: large osteophytes, marked JSN, severe sclerosis and definite bony deformity RADIA
== END 2019-08-04 12:18 | disposition home or self-care (01) ==
LOC: DI 12:17
PROVIDERS: ATTEND Internal Medicine
DX: M17.12 Unilateral primary osteoarthritis, left knee (principal)

== ENCOUNTER 2019-12-06 14:01 | Outpatient (CLI) | payer MEDICAID ==
--- NOTE | 2019-12-06 15:05 | XRAY Report ---
PROCEDURE: Knee 3 View BILAT INDICATIONS: KNEE PAIN TECHNIQUE: 3 views of each knee are obtained. COMPARISON: None. FINDINGS: Bones: No fractures or dislocations. No suspicious bony lesions. Mild tricompartmental periarticul ar osteophyte formation. Moderate left greater than right medial compartment narrowing. Soft tissues: Small left knee joint effusion. No suspicious soft tissue calcifications. IMPRESSION: 1. Bilateral osteoarthritis with medial compartment narrowing as described above. 2. Left knee joint effusion. Reviewed by: Pablito Odonnell MD on 12/06/2019 3:04 PM PDT Approved by: Pablito Odonnell MD on 12/06/2019 3:04 PM PDT Station ID: [id number]
== END 2019-12-06 14:02 | disposition home or self-care (01) ==
LOC: DI 14:01
PROVIDERS: ATTEND Physician Assistant
DX: M17.0 Bilateral primary osteoarthritis of knee (principal)

== ENCOUNTER 2020-02-14 11:28 | Outpatient (CLI) | payer MEDICAID ==
--- NOTE | 2020-02-16 07:56 | Mammography Report ---
BILATERAL DIGITAL SCREENING MAMMOGRAM 3D/2D: 02/14/2020 CLINICAL: Routine screening. Comparison is made to exams dated: 10/25/2010 mammogram, 11/03/2008 mammogram, and 10/25/2010 ultrasound - [facility]. There are scattered fibroglandular elements in both breasts. No significant masses, calcifications, or other findings are seen in either breast. There has been no significant interval change. IMPRESSION: NEGATIVE There is no mammographic evidence of malignancy. A 1 year screening mammogram is recommended. This exam was interpreted at Station ID: [id number]. NOTE: For mammograms, a report in lay terms will be sent to the patient. Approximately 15% of breast malignancies will not be visualized mammographically. In the management of a palpable breast mass, a negative mammogram must not discourage biopsy of a clinically suspicious lesion. Electronically Signed By: Carrillo Jett M.D. slc/penrad:02/15/2020 12:18:20 ACR BI-RADS Category 1: Negative [id number] PARENCHYMAL PATTERN: (A) - The breast(s) demonstrate(s) scattered fibroglandular densities. BI-RADS CATEGORY: (1) - 1 RECOMMENDATION: (ANNUAL) - Recommend routine annual screening mammography. [id number] 1 year screening LATERALITY: (B)
== END 2020-02-14 11:29 | disposition home or self-care (01) ==
LOC: DI.N 11:28
PROVIDERS: ATTEND Family Medicine
DX: Z12.31 Encounter for screening mammogram for malignant neoplasm of breast (principal)
CPT/HCPCS: 77063; 77067

== ENCOUNTER 2020-06-15 10:33 | Outpatient (CLI) | payer MEDICAID ==
[2020-06-15 11:01] LABS: BASOPHILS % (AUTO) 0.5 %; EOSINOPHILS # (AUTO) 0.3 10^3/uL (0.0-0.7); EOSINOPHILS % (AUTO) 3.4 %; HGB - HEMOGLOBIN 15.1 g/dL (12.0-16.0); LYMPHOCYTES # (AUTO) 2.8 10^3/uL (1.5-3.5); LYMPHOCYTES % (AUTO) 34.5 %; MEAN CORPUSCULAR HEMOGLOBIN 28.3 pg (27.0-31.0); MEAN CORPUSCULAR HGB CONC 32.5 g/dL (32.0-36.0); MEAN CORPUSCULAR VOLUME 87.1 fL (81.0-99.0); MEAN PLATELET VOLUME 9.3 fL (7.9-10.8); MONOCYTES # (AUTO) 0.4 10^3/uL (0.0-1.0); MONOCYTES % (AUTO) 5.4 %; NEUTROPHILS # (AUTO) 4.6 10^3/uL (1.5-6.6); NEUTROPHILS % (AUTO) 55.8 %; PLT - PLATELET COUNT 313 10^3/uL (130-450); RED BLOOD COUNT 5.34 10^6/uL (4.20-5.40); RED CELL DISTRIBUTION WIDTH 13.8 % (12.0-15.0); WHITE BLOOD COUNT 8.2 x10^3/uL (4.8-10.8)
[2020-06-15 11:16] LABS: ALBUMIN 4.4 g/dL (3.2-5.5); ALBUMIN/GLOBULIN RATIO 1.4 (1.0-2.2); ALKALINE PHOSPHATASE 60 IU/L (42-121); ALT ALANINE AMINOTRANSFERASE 36 IU/L (10-60); AST ASPARTATE AMINOTRANSFERASE 22 IU/L (10-42); BILIRUBIN,TOTAL 0.5 mg/dL (0.2-1.0); BUN - BLOOD UREA NITROGEN 16 mg/dL (6-20); CALCIUM 9.3 mg/dL (8.5-10.3); CARBON DIOXIDE - CO2 23 mmol/L (21-32); CHLORIDE 105 mmol/L (101-111); CHOL/HDL RATIO 4.8 (<4.4); CHOLESTEROL 198 mg/dL; CREATININE 0.7 mg/dL (0.4-1.0); GLUCOSE 102 mg/dL (70-100); HDL CHOLESTEROL 41 mg/dL; LDL CHOLESTEROL,CALCULATED 139 mg/dL; LDL/HDL RATIO 3.4 (<4.4); SODIUM 139 mmol/L (135-145); TOTAL PROTEIN 7.5 g/dL (6.7-8.2); VLDL CHOLESTEROL 18 mg/dL
[2020-06-15 11:24] LABS: T4 (THYROXINE) 10.83 ug/dL (6.09-12.23)
[2020-06-15 11:28] LABS: THYROID STIMULATING HORMONE 1.94 uIU/mL (0.34-5.60)
[2020-06-16 11:02] LABS: HIV AG/AB 4TH GEN NON-REACTIVE (NON-REACTIVE)
[2020-06-16 13:37] LABS: HEPATITIS B SURFACE ANTIGEN NON-REACTIVE (NON-REACTIVE); HEPATITIS C ANTIBODY NON-REACTIVE (NON-REACTIVE)
== END 2020-06-15 10:34 | disposition home or self-care (01) ==
LOC: LAB 10:33
PROVIDERS: ATTEND Obstetrics & Gynecology
DX: Z11.3 Encounter for screening for infections with a predominantly sexual mode of transmission (principal); I10 Essential (primary) hypertension; E66.8 Other obesity; E03.9 Hypothyroidism, unspecified; Z79.899 Other long term (current) drug therapy; E11.9 Type 2 diabetes mellitus without complications; E74.9 Disorder of carbohydrate metabolism, unspecified
CPT/HCPCS: 36415; 80053; 80061; 81599; 83721; 84436; 84443; 85025; 85651; 86592; 86803; 87340; 87350; 87389

== ENCOUNTER 2020-07-29 20:29 | Emergency (ER) | payer MEDICAID ==
[2020-07-29] MEDS ORDERED: cephALEXin 250 MG CAPSULE PO STA (21:15)
[2020-07-29] MEDS ORDERED: DEXAMETHASONE 10 MG/ML VIAL PO STA (21:15)
--- NOTE | 2020-07-29 21:18 | ED Physician Documentation ---
History of Present Illness - Stated complaint Stated Complaint: SORE THROAT - Chief complaint Chief Complaint: Heent - History obtained from History obtained from: Patient - History of Present Illness Timing: Today Pain level max: 5 Pain level now: 4 - Additonal information Additional information: Patient is a 40-year-old female who presents to the emergency department with a sore throat starting today. History of strep several times in the past and states that this feels similar. Has had some chills but no fevers. No cough. No congestion. No rhinorrhea. Worse with swallowing, better with rest. Review of Systems Constitutional: reports: Chills. denies: Fever Throat: reports: Sore throat Respiratory: denies: Cough GI: denies: Nausea, Vomiting, Diarrhea Skin: denies: Rash Musculoskeletal: denies: Neck pain, Back pain Neurologic: denies: Headache PD PAST MEDICAL HISTORY - Past Medical History Past Medical History: Yes Cardiovascular: None Respiratory: None Neuro: None Endocrine/Autoimmune: Type 2 diabetes, HyPOthyroidism GI: None CHECK EXAMINER: None : None HEENT: None Psych: Anxiety, ADD/ADHD Musculoskeletal: Chronic back pain Derm: None - Past Surgical History Past Surgical History: Yes General: Cholecystectomy - Present Medications Home Medications: Ambulatory Orders Medication Instructions Recorded Confirmed Oxycodone HCl 10 mg PO QID 04/07/14 07/29/20 Dextroamphetamine/Amphetamine 20 mg PO BID 03/05/19 07/29/20 [Adderall 15 mg Tablet] Gabapentin 800 mg PO TID 03/05/19 07/29/20 Levothyroxine Sodium [Synthroid] 88 mcg PO DAILY 03/05/19 07/29/20 Naproxen 500 mg PO BID 03/05/19 07/29/20 tiZANidine [Zanaflex] 4 mg PO TID 03/05/19 07/29/20 Liraglutide [Victoza 2-Miguela Ngel] 3 mg .ROUTE DAILY 07/29/20 07/29/20 cephALEXin [Keflex] 500 mg PO Q6H #40 cap 07/29/20 metFORMIN [Glucophage] 250 mg PO DAILY 07/29/20 07/29/20 - Allergies Allergies/Adverse Reactions: Allergies Allergy/AdvReac Type Severity Reaction Status Date / Time amphetamine Allergy Intermediate Rash Verified 07/29/20 20:45 [From Adderall XR] dextroamphetamine Allergy Intermediate Rash Verified 07/29/20 20:45 [From Adderall XR] hydrocodone bitartrate * Allergy Intermediate Rash Verified 07/29/20 20:45 [From Vicodin] ketorolac tromethamine * Allergy Intermediate Rash Verified 07/29/20 20:45 [From Toradol] Penicillins Allergy Intermediate Rash Verified 07/29/20 20:45 shellfish derived Allergy Intermediate Rash Verified 07/29/20 20:45 Tetracyclic Antidepressants Allergy Intermediate Hallucinati Verified 07/29/20 20:45 ons tramadol Allergy Intermediate Rash Verified 07/29/20 20:45 hydromorphone AdvReac Severe Emesis Verified 07/29/20 20:45 prednisone AdvReac Severe Anxiety Verified 07/29/20 20:45 ibuprofen AdvReac Intermediate Bloody Verified 07/29/20 20:45 Stools lactose AdvReac Unknown Verified 07/29/20 20:45 baking soda AdvReac Mild Rash Uncoded 07/29/20 20:45 epsin salt AdvReac Mild Rash Uncoded 10/10/15 11:48 - Social History Does the pt smoke?: No Smoking Status: Never smoker Does the pt drink ETOH?: No Does the pt have substance abuse?: No - Immunizations Immunizations are current?: Yes - POLST Patient has POLST: No PD ED PE NORMAL - Vitals Vital signs reviewed: Yes - General General: Alert and oriented X 3, No acute distress - HEENT HEENT: Ears normal, Moist mucous membranes, Other (Posterior oropharynx is erythematous with tonsillar exudates. Normal phonation. No trismus. Uvula midl ine.) - Neck Neck: Supple, no meningeal sign, Other (Shotty anterior lymphadenopathy) - Cardiac Cardiac: RRR - Respiratory Respiratory: No respiratory distress, Clear bilaterally - Derm Derm: Warm and dry - Neuro Neuro: Alert and oriented X 3 Results - Vitals Vitals: Vital Signs - 24 hr 07/29/20 20:36 Temperature 36.9 C Heart Rate 105 H Respiratory 12 Rate Blood Pressure 143/94 H O2 Saturation 98 Oxygen O2 Source Room air PD MEDICAL DECISION MAKING - ED course Complexity details: considered differential, d/w patient ED course: Patient with what appears to be strep pharyngitis clinically. We will treat her with antibiotics. Given dexamethasone as well. Patient is well-appearing, nontoxic. Afebrile. Normal phonation. No trismus. No evidence of peritonsillar or retropharyngeal abscess. Patient counseled regarding signs and symptoms for which I believe and urgent re-evaluation would be necessary. Patient with good understanding of and agreement to plan and is comfortable going home at this time This document was made in part using voice recognition software. While efforts are made to proofread this document, sound alike and grammatical errors may occur. Departure - Departure Disposition: 01 Home, Self Care Clinical Impression: Strep pharyngitis Condition: Good Instructions: ED Strep Pharyngitis Conf Follow-Up: Pako Rockwell MD [Primary Care Provider] - As Needed Prescriptions: cephALEXin [Keflex] 500 mg PO Q6H #40 cap Comments: Take all antibiotics until gone. Return if you worsen. Follow up with your doctor for further care. Drink plenty of fluids.
[2020-07-29 21:40] VITALS: BP 142/98
== END 2020-07-29 21:40 | disposition home or self-care (01) ==
LOC: ED 20:29
DX: J02.0 Streptococcal pharyngitis (principal); Z88.0 Allergy status to penicillin; E11.9 Type 2 diabetes mellitus without complications; Z79.84 Long term (current) use of oral hypoglycemic drugs
CPT/HCPCS: 99282; 99283; A9270

== ENCOUNTER 2020-08-09 08:00 | Outpatient (CLI) | payer MEDICAID ==
[2020-08-09 19:59] LABS: BACTERIAL VAGINOSIS DNA NEGATIVE (NEGATIVE); CANDIDA GLABRATA DNA NEGATIVE (NEGATIVE); CANDIDA GROUP DNA NEGATIVE (NEGATIVE); CANDIDA KRUSEI DNA NEGATIVE (NEGATIVE); TRICHOMONAS VAGINALIS DNA POSITIVE (NEGATIVE)
[2020-08-09 20:45] LABS: CHLAMYDIA TRACHOMATIS DNA NEGATIVE (NEGATIVE); NEISSERIA GONORRHOEAE DNA NEGATIVE (NEGATIVE)
[2020-08-09 20:46] LABS: TRICHOMONAS VAGINALIS DNA POSITIVE (NEGATIVE)
== END 2020-08-09 23:59 | disposition home or self-care (01) ==
LOC: LAB.R 08:00
PROVIDERS: ATTEND Obstetrics & Gynecology
DX: N89.8 Other specified noninflammatory disorders of vagina (principal); Z11.3 Encounter for screening for infections with a predominantly sexual mode of transmission
CPT/HCPCS: 87491; 87591; 87661; 87801

== ENCOUNTER 2020-08-23 15:13 | Outpatient (CLI) | payer MEDICAID ==
[2020-08-23 15:41] VITALS: BP 129/81
--- NOTE | 2020-08-23 15:41 | SLEEP CARE CONSULTATION ---
Information from patient questionnaire entered by Neil Ramírez. I have reviewed and concur with the information entered by Neil Ramírez. This document represents the service I personally performed and the decisions made by , Ingrid Villarreal ARNP. History of Present Illness Service Date and Time: 08/23/2020 1513 Previous diagnosis: Moderate, Obstructive Sleep Apnea-Hypopnea Syndrome AHI: 16.5 Reason for follow up: annual (Last seen 07/2019) Year and Where: 2011 and 2019 [facility] additional information: NATI ALMAGUER was diagnosed to have moderate, AHI 16.5, obstructive sleep apnea- hypopnea syndrome and returned today for annual follow-up. She did not get started on CPAP due to several life stressors and changes. She is here to restart process. Subjective Initial [place] Sleepiness Scale score: 14 (in 2011) Current [place] Sleepiness Scale score: 14 Allergies and Home Medications Drug allergies reviewed: Yes (see list in chart) Home medication list reviewed: Yes Allergy and home medication list: Victoza 3 mg QHS Metformin 500 mg 1/2 QHS Adderrall 20 mg twice a day Review of Systems Review of systems same as previous: No (Diabetes type II) Physical Exam Blood Pressure: 129/81 Cuff size: wrist Heart Rate: 81 O2 Saturation: 98 Height: 5 ft 10 in Weight: 350 lb Weight change since last visit: 42 Body Mass Index: 50.2 BMI Classification: Morbidly Obese Impression and Plan 1. Suspected Obstructive Sleep Apnea-Hypopnea Syndrome, as previously diagnosed with moderate obstructive sleep apnea and as suggested by a continued history of irregular snoring, unrefreshed sleep, cognitive impairment, and excessive daytime sleepiness. She has lost 42 pounds since her last sleep study. I recom mend proceeding to polysomnography to confirm the diagnosis and to assess severity. If the patient has significant sleep disordered breathing, a manual CPAP titration study will also be performed to find the optimal treatment pressure. I informed the patient of what the sleep studies involve and after some discussion, obtained agreement to proceed. The pathophysiology of obstructive sleep apnea-hypopnea syndrome was discussed with the patient and health risks of cardiovascular and cerebrovascular disease if not treated. Risks of drowsy driving discussed in detail and patient advised to avoid long distance driving and to pulley mortiser operator at the first sign of drowsiness. Patient agreed to plan. * Schedule polysomnography +- manual CPAP titration study and return in 1-2 weeks after the study to discuss result and initiate therapy. * Avoid long distance driving or driving when feeling sleepy. * Avoid sedative and muscle relaxant around bedtime. * Continue to lose weight. * Review instructions provided by trained office staff on how to prepare for the sleep study. * Return for follow-up after sleep study completed. Counseling Topics: Weight loss health impact Visit Type: In Office Time Spent with Patient (minutes): 18 Provider Statement: I spent 100% of the Face to Face Visit with the patient with greater than 50% spent counseling the patient and coordination of care.
== END 2020-08-23 15:14 | disposition home or self-care (01) ==
LOC: SC 15:13
PROVIDERS: ATTEND Nurse Practitioner Family
DX: G47.33 Obstructive sleep apnea (adult) (pediatric) (principal); E66.01 Morbid (severe) obesity due to excess calories; Z68.43 Body mass index [BMI] 50.0-59.9, adult
CPT/HCPCS: 99212

== ENCOUNTER 2020-09-04 13:06 | Outpatient (CLI) | payer MEDICAID | END 2020-09-04 13:07 | disposition home or self-care (01) | LOC: SC 13:06 | PROVIDERS: ATTEND Nurse Practitioner Family | DX: G47.33 Obstructive sleep apnea (adult) (pediatric) (principal); E66.01 Morbid (severe) obesity due to excess calories; Z68.43 Body mass index [BMI] 50.0-59.9, adult | CPT/HCPCS: 95806 ==

== ENCOUNTER 2020-09-18 08:00 | Outpatient (CLI) | payer MEDICAID ==
[2020-09-18 21:57] LABS: CHLAMYDIA TRACHOMATIS DNA NEGATIVE (NEGATIVE); NEISSERIA GONORRHOEAE DNA NEGATIVE (NEGATIVE); TRICHOMONAS VAGINALIS DNA NEGATIVE (NEGATIVE)
== END 2020-09-18 23:59 | disposition home or self-care (01) ==
LOC: LAB.WC 08:00
PROVIDERS: ATTEND Obstetrics & Gynecology
DX: Z11.3 Encounter for screening for infections with a predominantly sexual mode of transmission (principal)
CPT/HCPCS: 87491; 87591; 87661

== ENCOUNTER 2020-09-18 11:37 | Outpatient (CLI) | payer MEDICAID ==
--- NOTE | 2020-09-18 12:03 | SLEEP CARE CONSULTATION ---
Information from patient questionnaire entered by Jennifer Diaz. I have reviewed and concur with the information entered by Jennifer Diaz. This document represents the service I personally performed and the decisions made by , Ingrid Villarreal ARNP. History of Present Illness Service Date and Time: 09/18/2020 1137 Initial [place] Sleepiness Scale score: 14 (in 2012) Current [place] Sleepiness Scale score: 8 Additional HPI information: NATI ALMAGUER returns for follow up and results of the recently performed home sleep study. She was found to have mild obstructive sleep apnea with an average AHI of 6.3 and chayo oxygen saturation of 85%. I explained the pathophysiology behind obstructive sleep apnea. We then spent quite a bit of time discussing different treatment options. For mild obstructive sleep apnea, surgery and oral appliance are alternatives to nasal CPAP therapy but in moderate or severe cases, nasal CPAP is the most effective and reliable treatment. Because apnea is primarily in supine position, then positional management therapy could be effective. Methods discussed such as positioning with pillows, using a T-shirt with tennis balls in the back, and shown commercial products that have a pillow format on back to prevent supine sleep. I reviewed the impact of weight changes on sleep apnea and strongly recommended losing weight. After some discussion, the patient opted to go with the nasal CPAP therapy. Nasal autoCPAP set at 4-15 cmH20 will be ordered with rationale explained. A manual titration study will be ordered if unable to find optimal pressure with office adjustments. I explained how CPAP machine works with sample devices Respironics Dreamstation and ResMed [id number] and what to expect when using the machine. Using CPAP every night in order to get used to it was emphasized. Patient advised to put CPAP mask on before getting into bed so as not to fall asleep without CPAP. To assist acclimation to CPAP use, it could also be used for a short time during day while reading or watching TV. The patient was instructed to call the CPAP supplier to discuss any mechanical problem that may occur. If the mask given is uncomfortable or is difficult to keep on through the night even with adjustment, contact the CPAP supplier as many will replace with another mask style if notified before 30 days. If snoring or perceives is not getting enough air or too much air from the machine, notify this office. AAS patient education PAP tips reviewed and given to patient. Patient counseled not drink alcohol less than 4 hours before bedtime as it can increase snoring and apnea. Patient was cautioned about risks of drowsy driving until sleepiness symptoms resolve. Sleep Study - Results Type of Sleep Study: Home sleep study Prior sleep studies: Yes Year and Where: 2011 and [address] - [facility] Polysomnography/Home Sleep Study results: Physician Impression: The quality of the study is good. The length of the study is adequate (> 240 minutes). Please also see the tabulated and graphic data. 1. Obstructive Sleep Apnea-Hypopnea (ICD-10 G47.33), mild, with an AHI of 6.3/hr and chayo SaO2 of 85%. During the study, the patient had 10 apneas (10 obstructive, 0 central, 0 mixed) and 41 hypopneas. The longest episode lasted 84.5 seconds. The patient only slept supine during this study (supine AHI was 6.3 and non-supine, 0.00). 2. Hypoxemia (ICD-10 R09.02), mild, with the lowest oxygen saturation of 85 % and 2.7 minutes with SaO2 under 90%. Baseline oxygen saturation was normal (Average oxygen saturation was 94%). Allergies and Home Medications Home medication list reviewed: Yes (no new meds) Review of Systems Review of systems same as previous: Yes (no changes) Physical Exam Heart Rate: 67 O2 Saturation: 96 Height: 5 ft 10 in Weight: 352 lb Body Mass Index: 50.5 BMI Classification: Morbidly Obese Impression and Plan 1. Obstructive Sleep Apnea-Hypopnea Syndrome, mild, with lowest oxygen saturation of 85%. Obviously this is the cause of the patients symptoms of unrefreshed sleep, and excessive daytime sleepiness. Positive pressure therapy could benefit diabetes, anxiety, depression and attention deficit. Patient stat es she cannot sleep on her side due to back and shoulder pain. She also has a history of TMJ (severe) and migraines. As mentioned above, the patient will be started on nasal autoCPAP therapy with pressure set at 4-15 cmH2O. A manual titration study will be completed if unable to find optimal treatment pressure with office adjustments. Compliance guidelines also reviewed. A copy of compliance guidelines will be given for reference at check out. 2. Hypoxemia, mild, with the lowest oxygen saturation of 85 % and 2.7 minutes with SaO2 under 90%. Her baseline oxygen saturation was normal with an average oxygen saturation of 94%. * Nasal auto CPAP therapy, pressure at 4-15 cm H2O. * Attempt to lose weight. * Avoid alcohol consumption near bedtime. * The patient is again cautioned about driving until sleepiness completely resolves. * Return one month after CPAP obtained. I will assess response to therapy and compliance at that time. Counseling Topics: Weight loss health impact Visit Type: In Office Time Spent with Patient (minutes): 23 Provider Statement: I spent 100% of the Face to Face Visit with the patient with greater than 50% spent counseling the patient and coordination of care.
== END 2020-09-18 11:38 | disposition home or self-care (01) ==
LOC: SC 11:37
PROVIDERS: ATTEND Nurse Practitioner Family
DX: G47.33 Obstructive sleep apnea (adult) (pediatric) (principal); E66.01 Morbid (severe) obesity due to excess calories; Z68.43 Body mass index [BMI] 50.0-59.9, adult
CPT/HCPCS: 99212; 99213

== ENCOUNTER 2021-08-23 09:13 | Outpatient (CLI) | payer MEDICAID ==
[2021-08-23 09:36] LABS: BASOPHILS # (AUTO) 0.1 10^3/uL (0.0-0.1); BASOPHILS % (AUTO) 0.8 %; EOSINOPHILS # (AUTO) 0.4 10^3/uL (0.0-0.7); EOSINOPHILS % (AUTO) 4.5 %; HCT - HEMATOCRIT 43.4 % (37.0-47.0); HGB - HEMOGLOBIN 14.4 g/dL (12.0-16.0); LYMPHOCYTES # (AUTO) 2.6 10^3/uL (1.5-3.5); MEAN CORPUSCULAR HEMOGLOBIN 28.6 pg (27.0-31.0); MEAN CORPUSCULAR HGB CONC 33.2 g/dL (32.0-36.0); MEAN CORPUSCULAR VOLUME 86.1 fL (81.0-99.0); MEAN PLATELET VOLUME 8.8 fL (7.9-10.8); MONOCYTES # (AUTO) 0.5 10^3/uL (0.0-1.0); MONOCYTES % (AUTO) 6.1 %; NEUTROPHILS # (AUTO) 4.3 10^3/uL (1.5-6.6); PLT - PLATELET COUNT 312 10^3/uL (130-450); RED BLOOD COUNT 5.04 10^6/uL (4.20-5.40); RED CELL DISTRIBUTION WIDTH 14.5 % (12.0-15.0); WHITE BLOOD COUNT 7.9 x10^3/uL (4.8-10.8)
[2021-08-23 10:00] LABS: ALBUMIN 4.2 g/dL (3.2-5.5); ALBUMIN/GLOBULIN RATIO 1.4 (1.0-2.2); ALKALINE PHOSPHATASE 48 IU/L (42-121); ALT ALANINE AMINOTRANSFERASE 28 IU/L (10-60); AST ASPARTATE AMINOTRANSFERASE 22 IU/L (10-42); BILIRUBIN,TOTAL 0.7 mg/dL (0.2-1.0); BUN - BLOOD UREA NITROGEN 16 mg/dL (6-20); CALCIUM 8.8 mg/dL (8.5-10.3); CARBON DIOXIDE - CO2 24 mmol/L (21-32); CHLORIDE 99 mmol/L (101-111); CHOL/HDL RATIO 3.7 (<4.4); CHOLESTEROL 227 mg/dL; CREATININE 0.7 mg/dL (0.4-1.0); GFR - MDRD 92 (>89); GLUCOSE 100 mg/dL (70-100); HDL CHOLESTEROL 61 mg/dL; LDL CHOLESTEROL,CALCULATED 144 mg/dL; LDL/HDL RATIO 2.4 (<4.4); POTASSIUM 4.3 mmol/L (3.5-5.0); SODIUM 136 mmol/L (135-145); TOTAL PROTEIN 7.2 g/dL (6.7-8.2); TRIGLYCERIDES 111 mg/dL; VLDL CHOLESTEROL 22 mg/dL
[2021-08-23 10:07] LABS: ESTIMATED AVERAGE GLUCOSE 111 mg/dL (70-100); HEMOGLOBIN A1c% 5.5 % (4.27-6.07)
== END 2021-08-23 09:14 | disposition home or self-care (01) ==
LOC: LAB 09:13
PROVIDERS: ATTEND Internal Medicine
DX: E03.9 Hypothyroidism, unspecified (principal); E11.9 Type 2 diabetes mellitus without complications; E66.9 Obesity, unspecified
CPT/HCPCS: 36415; 80053; 80061; 83036; 83721; 84443; 85025

== ENCOUNTER 2021-09-09 10:33 | Outpatient (CLI) | payer MEDICAID ==
--- NOTE | 2021-09-09 11:11 | XRAY Report ---
PROCEDURE: Knee 3 View BILAT INDICATIONS: BILAT ABEL TECHNIQUE: 3 views of the bilateral knee(s) were acquired. COMPARISON: December 06, 2019. FINDINGS: Bones: No fractures or dislocations. No suspicious bony lesions. Moderate narrowing of the left me dial compartment joint space. Moderate tricompartment osteophytosis. Mild narrowing of the right medial compartment joint space. Soft tissues: Small right and trace left pleural effusions. No suspicious soft tissue calcifications . IMPRESSION: Knee degeneration as detailed above. Reviewed by: Ravi Moreno MD on 09/09/2021 11:10 AM PDT Approved by: Ravi Moreno MD on 09/09/2021 11:10 AM PDT Station ID: [id number]
== END 2021-09-09 10:34 | disposition home or self-care (01) ==
LOC: DI 10:33
PROVIDERS: ATTEND Internal Medicine
DX: M17.0 Bilateral primary osteoarthritis of knee (principal)

== ENCOUNTER 2021-09-24 09:00 | Outpatient (CLI) | payer OTHER, MEDICAID ==
--- NOTE | 2021-09-24 13:36 | XRAY Report ---
PROCEDURE: Shoulder 3 View RT INDICATIONS: RIGHT SHOULDER PAIN TECHNIQUE: 4 views of the shoulder were acquired. COMPARISON: None. FINDINGS: Bones: Mild acromioclavicular joint space narrowing and degenerative changes. Glenohumeral joint spac e is maintained. No fractures or dislocations. No suspicious bony lesions. Visualized ribs appear i ntact. Soft tissues: No suspicious soft tissue calcifications. IMPRESSION: Mild acromioclavicular degenerative change. No acute finding. Reviewed by: Alex Lange MD on 09/24/2021 1:33 PM PDT Approved by: Alex Lange MD on 09/24/2021 1:33 PM PDT Station ID: [id number]
== END 2021-09-24 23:59 | disposition home or self-care (01) ==
LOC: DI.WOS 09:00
PROVIDERS: ATTEND Physician Assistant
DX: M65.811 Other synovitis and tenosynovitis, right shoulder (principal); M75.51 Bursitis of right shoulder; M19.011 Primary osteoarthritis, right shoulder

== ENCOUNTER 2022-02-07 10:45 | Emergency (ER) | payer MEDICAID ==
--- NOTE | 2022-02-07 11:01 | ED Physician Documentation ---
PD HPI LOWER EXT INJURY - Stated complaint Stated Complaint: GLF ANKLE/KNEE PX - Chief complaint Chief Complaint: Trauma Ext - History obtained from History obtained from: Patient - History of Present Illness PD HPI LOW EXT INJURY LOCATION: Left, Hip, Ankle, Foot Type of injury: Fall, Twist Where injury occurred: Home Timing - onset: Last night Timing - duration: Hours Timing - details: Abrupt onset, Still present Improved by: Rest, Ice, Immobilization Worsened by: Moving, Palpating Associated symptoms: Swelling. No: Weakness, Numbness, Tingling Contributing factors: No: Anticoagulated, Prior ortho surgery Similar symptoms before: Diagnosis (ankle and foot fracture.) Recently seen: Not recently seen - Additional information Additional information: 42-year-old female with a history of ADHD was walking down her steps last night when her foot twisted and she fell forward onto her right knee she twisted her ankle and foot and is injured her left thumb as well. She is complaining some pain in her left hip. Review of Systems Constitutional: denies: Fever Nose: denies: Congestion Throat: denies: Sore throat Respiratory: denies: Cough GI: denies: Vomiting, Diarrhea Musculoskeletal: reports: Extremity pain, Joint pain, Pain with weight bearing. 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 : None HEENT: None Psych: Anxiety, ADD/ADHD Musculoskeletal: Chronic back pain Derm: None - Past Surgical History Past Surgical History: Yes General: Cholecystectomy - Present Medications Home Medications: Ambulatory Orders Medication Instructions Recorded Confirmed Oxycodone HCl 10 mg PO QID 04/07/14 07/29/20 Dextroamphetamine/Amphetamine 20 mg PO BID 03/05/19 07/29/20 [Adderall 15 mg Tablet] Gabapentin 800 mg PO TID 03/05/19 07/29/20 Levothyroxine Sodium [Synthroid] 88 mcg PO DAILY 03/05/19 07/29/20 Naproxen 500 mg PO BID 03/05/19 07/29/20 tiZANidine [Zanaflex] 4 mg PO TID 03/05/19 07/29/20 Liraglutide [Victoza 2-Miguel Angel] 3 mg .ROUTE DAILY 07/29/20 07/29/20 cephALEXin [Keflex] 500 mg PO Q6H #40 cap 07/29/20 metFORMIN [Glucophage] 250 mg PO DAILY 07/29/20 07/29/20 - Allergies Allergies/Adverse Reactions: Allergies Allergy/AdvReac Type Severity Reaction Status Date / Time amphetamine Allergy Intermediate Rash Verified 02/07/22 10:56 [From Adderall XR] dextroamphetamine Allergy Intermediate Rash Verified 02/07/22 10:56 [From Adderall XR] hydrocodone bitartrate * Allergy Intermediate Rash Verified 02/07/22 10:56 [From Vicodin] ketorolac tromethamine * Allergy Intermediate Rash Verified 02/07/22 10:56 [From Toradol] Penicillins Allergy Intermediate Rash Verified 02/07/22 10:56 shellfish derived Allergy Intermediate Rash Verified 02/07/22 10:56 Tetracyclic Antidepressants Allergy Intermediate Hallucinati Verified 02/07/22 10:56 ons tramadol Allergy Intermediate Rash Verified 02/07/22 10:56 hydromorphone AdvReac Severe Emesis Verified 02/07/22 10:56 prednisone AdvReac Severe Anxiety Verified 02/07/22 10:56 ibuprofen AdvReac Intermediate Bloody Verified 07/29/20 20:45 Stools lactose AdvReac Unknown Verified 07/29/20 20:45 baking soda AdvReac Mild Rash Uncoded 07/29/20 20:45 epsin salt AdvReac Mild Rash Uncoded 10/10/15 11:48 - Social History Does the pt smoke?: No Smoking Status: Never smoker Does the pt drink ETOH?: No Does the pt have substance abuse?: No - Immunizations Immunizations are current?: Yes - POLST Patient has POLST: No PD ED PE NORMAL - Vitals Vital signs reviewed: Yes (Hypertensive) - General General: Alert and oriented X 3, No acute distress, Well developed/nourished - HEENT HEENT: Atraumatic, PERRL, EOMI - Respiratory Respiratory: No respiratory distress - Derm Derm: Normal color, Warm and dry, No rash - Extremities Extremities: No deformity, Other (To the left ankle there is pain to palpation over the talofibular ligament as well as localized swelling. She has pain to palpation of the proximal fifth as well as pain with dorsiflexion and plantarflexion of the foot. tenderness to left thumb MCP joint .) - Neuro Neuro: Alert and oriented X 3, machine printer 2-12 intact, No motor deficit, No sensory deficit, Normal speech Eye Opening: Spontaneous Motor: Obeys Commands Verbal: Oriented GCS Score: 15 - Psych Psych: Normal mood, Normal affect Results - Vitals Vitals: Vital Signs - 24 hr 02/07/22 02/07/22 10:52 13:24 Temperature 36.2 C L Heart Rate 66 60 Respiratory 16 18 Rate Blood Pressure 144/86 H 133/79 H O2 Saturation 100 98 Oxygen O2 Source Room air - Rads (name of study) hip Radiology: Prelim report reviewed (Impression: No acute left hip fracture or dislocation. 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 No evidence of avascular necrosis.), EMP read indepedently, See rad report hand Radiology: Prelim report reviewed (Impression: No gross acute left hand fracture or dislocation. No gross left soft tissue abnormalities), EMP read indepedently, See rad report Ankle Radiology: Prelim report reviewed (Impression: No acute osseous abnormality. If symptoms persist, follow-up radiographs and/or CT may be helpful for further evaluation.), EMP read indepedently, See rad report Foot Radiology: Prelim report reviewed (Impression: No acute osseous abnormality. If symptoms persist, follow-up radiographs and or CT may be helpful for further evaluation.), EMP read indepedently, See rad report Procedures - Splint (location) foot/ankle Splint applied by: Tech Type of splint: Fiberglass, Posterior Other: Patient tolerated well, No complications, Neurovascular intact, Good alignment, Crutches provided PD MEDICAL DECISION MAKING - ED course Complexity details: reviewed old records, reviewed results, re-evaluated patient, considered differential, d/w patient ED course: 39-year-old female with a history of ADHD is coming to the emergency department after falling yesterday evening down her steps twisting her ankle falling onto her knee and bruising her hip and left thumb. She ends up having x-rays done of her hip her ankle her foot and her thumb. No fractures identified. She is placed into a posterior splint onto crutches and she is given a thumb spica splint. Departure - Departure Disposition: 01 Home, Self Care Clinical Impression: Ankle sprain Qualifiers: Encounter type: initial encounter Involved ligament of ankle: anterior talofibular ligament Laterality: left Qualified Code(s): S93.492A - Sprain of other ligament of left ankle, initial encounter Contusion, hip Qualifiers: Encounter type: initial encounter Laterality: left Qualified Code(s): S70.02XA - Contusion of left hip, initial encounter Left thumb sprain Qualifiers: Encounter type: initial encounter Sprain of finger site: metacarpophalangeal joint Qualified Code(s): S63.642A - Sprain of metacarpophalangeal joint of left thumb, initial encounter Sprain of left foot Qualifiers: Encounter type: initial encounter Qualified Code(s): S93.602A - Unspecified sprain of left foot, initial encounter Condition: Stable Instructions: ED Sprain Ankle W X Ray, ED Sprain Foot, ED Contusion Hip, ED Sprain Finger Follow-Up: Pako Rockwell MD [Primary Care Provider] - Comments: Aruna, today it looks like you have sprained your left ankle. Your body will not allow you to bear weight on this and we have placed into a posterior splint and onto crutches. Our expectation is you will be able to bear weight within 3 days. When you are able to bear weight on the ankle and foot switch to using the ankle stirrup. Wear this for at least 2 weeks. Discharge Date/Time: 02/07/22 13:27
--- NOTE | 2022-02-07 12:07 | XRAY Report ---
PROCEDURE: Foot 3 View LT INDICATIONS: fall twist pain to prox 5th. TECHNIQUE: 3 views of the foot were acquired. COMPARISON: Left ankle radiographs same day FINDINGS: Bones: No fractures or dislocations. No suspicious bony lesions. A plantar calcaneal spur is prese nt. Soft tissues: No tibiotalar joint effusion. Achilles tendon appears normal. IMPRESSION: No acute osseous abnormality. If symptoms persist, follow-up radiographs and/or CT may be helpful for further evaluation. Reviewed by: Darren Lentz MD on 02/07/2022 12:05 PM PDT Approved by: Darren Lentz MD on 02/07/2022 12:05 PM PDT Station ID: [id number]
--- NOTE | 2022-02-07 12:08 | XRAY Report ---
PROCEDURE: Ankle 3 View LT INDICATIONS: fall twist lateral pain TECHNIQUE: 3 views of the ankle were acquired. COMPARISON: Left foot radiographs same day. FINDINGS: Bones: No fractures or dislocations. Ankle mortise is normally aligned. No suspicious bony lesions . Soft tissues: No tibiotalar joint effusion. Achilles tendon appears normal. IMPRESSION: No acute osseous abnormality. If symptoms persist, follow-up radiographs and/or CT may be helpful for further evaluation. Reviewed by: Darren Lentz MD on 02/07/2022 12:07 PM PDT Approved by: Darren Lentz MD on 02/07/2022 12:07 PM PDT Station ID: [id number]
--- NOTE | 2022-02-07 12:09 | XRAY Report ---
PROCEDURE: Hand 3 View LT INDICATIONS: fall prox thumb pain TECHNIQUE: 3 views of the hand(s) acquired. COMPARISON: None FINDINGS: Bones: No fractures or dislocations. No suspicious bony lesions. Soft tissues: No suspicious soft tissue calcifications. IMPRESSION: No gross acute left hand fracture or dislocation. No gross soft tissue abnormalities. Reviewed by: Sony Arredondo MD on 02/07/2022 12:08 PM PDT Approved by: Sony Arredondo MD on 02/07/2022 12:08 PM PDT Station ID: [id number]
--- NOTE | 2022-02-07 12:11 | XRAY Report ---
PROCEDURE: Hip w/Pelvis 2-3V LT INDICATIONS: fall hip pain TECHNIQUE: AP pelvis with lateral view(s) of the left hip(s). COMPARISON: None. FINDINGS: Bones: No fractures or dislocations. Mild bilateral hip joint osteoarthritic changes are seen with s uperior joint space narrowing and subchondral sclerosis. No evidence of avascular necrosis of femoral head. Pelvic ring appears intact. No suspicious bony lesions. Soft tissues: The visualized bowel gas pattern is normal. No suspicious soft tissue calcifications. IMPRESSION: No acute left hip fracture or dislocation. Very mild bilateral hip joint osseous arthriti s. No evidence of avascular necrosis. Reviewed by: Sony Arredondo MD on 02/07/2022 12:10 PM PDT Approved by: Sony Arredondo MD on 02/07/2022 12:10 PM PDT Station ID: [id number]
[2022-02-07 13:25] VITALS: BP 133/79
== END 2022-02-07 13:27 | disposition home or self-care (01) ==
LOC: ED 10:45
DX: S93.492A Sprain of other ligament of left ankle, initial encounter (principal); S70.02XA Contusion of left hip, initial encounter; S63.642A Sprain of metacarpophalangeal joint of left thumb, initial encounter; W10.9XXA Fall (on) (from) unspecified stairs and steps, initial encounter; E11.9 Type 2 diabetes mellitus without complications; Z79.84 Long term (current) use of oral hypoglycemic drugs
CPT/HCPCS: 99282; 99284

== ENCOUNTER 2022-07-06 17:38 | Emergency (ER) | payer MEDICAID ==
[2022-07-06 17:49] VITALS: BP 144/79
[2022-07-06] MEDS ORDERED: oxyCODONE/ACET 5/325 Prepack 4 PO STA (18:09)
--- NOTE | 2022-07-06 18:12 | XRAY Report ---
PROCEDURE: Hand 3 View RT INDICATIONS: Trauma TECHNIQUE: 3 views of the hand(s) acquired. COMPARISON: None FINDINGS: Bones: No fractures or dislocations. No suspicious bony lesions. Soft tissues: No suspicious soft tissue calcifications. IMPRESSION: Unremarkable right hand radiographs Reviewed by: Abelardo Khan MD on 07/06/2022 5:11 PM [place] Approved by: Abelardo Khan MD on 07/06/2022 5:11 PM [place] Station ID: [id number]
--- NOTE | 2022-07-06 18:15 | ED Physician Documentation ---
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 : None HEENT: None Psych: Anxiety, ADD/ADHD Musculoskeletal: Chronic back pain Derm: None - Past Surgical History Past Surgical History: Yes General: Cholecystectomy - Present Medications Home Medications: Ambulatory Orders Medication Instructions Recorded Confirmed Oxycodone HCl 10 mg PO QID 04/07/14 07/29/20 Dextroamphetamine/Amphetamine 20 mg PO BID 03/05/19 07/29/20 [Adderall 15 mg Tablet] Gabapentin 800 mg PO TID 03/05/19 07/29/20 Levothyroxine Sodium [Synthroid] 88 mcg PO DAILY 03/05/19 07/29/20 Naproxen 500 mg PO BID 03/05/19 07/29/20 tiZANidine [Zanaflex] 4 mg PO TID 03/05/19 07/29/20 Liraglutide [Victoza 2-Miguel Angel] 3 mg .ROUTE DAILY 07/29/20 07/29/20 cephALEXin [Keflex] 500 mg PO Q6H #40 cap 07/29/20 metFORMIN [Glucophage] 250 mg PO DAILY 07/29/20 07/29/20 Albuterol Sulf [Ventolin Hfa 1 - 2 puffs INH Q4HR PRN #1 each 05/18/22 Inhaler] dexAMETHasone [Decadron] 4 mg PO BIDWM #10 tablet 05/18/22 Oxycodone HCl/Acetaminophen 1 - 2 each PO Q6H PRN #10 tablet 07/06/22 [Percocet 5-325 mg Tablet] - Allergies Allergies/Adverse Reactions: Allergies Allergy/AdvReac Type Severity Reaction Status Date / Time hydrocodone bitartrate * Allergy Intermediate Rash Verified 07/06/22 17:48 [From Vicodin] ketorolac tromethamine * Allergy Intermediate Rash Verified 07/06/22 17:48 [From Toradol] Penicillins Allergy Intermediate Rash Verified 07/06/22 17:48 shellfish derived Allergy Intermediate Rash Verified 07/06/22 17:48 Tetracyclic Antidepressants Allergy Intermediate Hallucinati Verified 07/06/22 17:48 ons tramadol Allergy Intermediate Rash Verified 07/06/22 17:48 milk Allergy Cramps Verified 07/06/22 17:48 whey Allergy Cramps Verified 07/06/22 17:48 hydromorphone AdvReac Severe Emesis Verified 07/06/22 17:48 prednisone AdvReac Severe Anxiety Verified 07/06/22 17:48 ibuprofen AdvReac Intermediate Bloody Verified 07/06/22 17:48 Stools baking soda AdvReac Mild Rash Uncoded 07/06/22 17:48 epsin salt AdvReac Mild Rash Uncoded 07/06/22 17:48 - Social History Does the pt smoke?: No Smoking Status: Never smoker Does the pt drink ETOH?: No Does the pt have substance abuse?: No - Immunizations Immunizations are current?: Yes - POLST Patient has POLST: No PD ED PE NORMAL - Vitals Vital signs reviewed: Yes - General General: Alert and oriented X 3, No acute distress - Extremities Extremities: Other (Abrasions over dorsum R hand with TTP 4th/5th MCs) - Psych Psych: Normal mood, Normal affect Results - Vitals Vitals: Vital Signs - 24 hr 07/06/22 17:43 Temperature 36.5 C Heart Rate 68 Respiratory 16 Rate Blood Pressure 144/79 H O2 Saturation 100 Oxygen O2 Source Room air - Rads (name of study) Three-view x-ray of the right hand is unremarkable Radiology: Final report received, EMP read indepedently Departure - Departure Disposition: 01 Home, Self Care Clinical Impression: Crushing injury of right hand Condition: Good Record reviewed to determine appropriate education?: Yes Instructions: ED Crush Injury Finger No Fx Prescriptions: Oxycodone HCl/Acetaminophen [Percocet 5-325 mg Tablet] 1 - 2 each PO Q6H PRN #10 tablet PRN Reason: pain Comments: I sent your prescription electronically to [facility] in [place]. Recheck with your doctor if not better in a week. Return for new or worsening symptoms. I am prescribing a short course of narcotic pain medication for you. These are potentially dangerous and addictive medications that should be used carefully. These medications may constipate you. Take an [id number] stool softener (docusate) twice daily with plenty of water while taking these medications. If you go 24 hours without a bowel movement, take [id number] miralax, per package instructions. Do not drink or drive while taking these medications. If you received narcotic or sedating medications while in the emergency department, do not drive for 24 hours. Store this medication in a safe, secure place and out of reach of children. It is a violation of federal law to give or sell this medication to another person or to use in a manner other than prescribed. The ED will not refill narcotic prescriptions, including prescriptions lost or stolen. To dispose of unwanted medications: 1. [facility] [address] in [place] has a medication drop box. They accept prescription medications (in pill form) Thursday through Thursday 9:00 a.m. to 5:00 p.m. 2. The [facility] [employer] accepts prescription medications (in pill form only) for disposal year round. Call for more information. 3. Contact the [facility] for the next [facility] sponsored prescription drug collection event. , [phone], or [phone]; Note that many narcotic pain relievers also contain Tylenol/acetaminophen. Please ensure that your total dose of acetaminophen from all sources does not exceed 3 g (3000 mg) per day.
--- OUTSIDE RECORDS SUMMARY | 2022-07-06 18:30 | EXTERNAL MEDICAL SUMMARY RPT | Continuity of Care Document ---
:1980 Author Organization [facility] Address [address] [place] [address] Phone Care Team Providers Name Role Phone Pako Rockwell Unavailable Unavailable Allergies and Intolerances date description facility type (no date) Penicillins [facility] (unknown) (no date) acetaminophen [facility] (unknown) (no date) bimatoprost [facility] (unknown) (no date) bupropion [facility] (unknown) (no date) codeine [facility] (unknown) (no date) erythromycin base [facility] (unknown) (no date) escitalopram [facility] (unknown) (no date) hydrocodone [facility] (unknown) (no date) hydromorphone [facility] (unknown) (no date) ketorolac [facility] (unknown) (no date) prednisone [facility] (unknown) (no date) sertraline [facility] (unknown) (no date) shellfish derived [facility] (unknown) (no date) tramadol [facility] (unknown) (no date) venlafaxine [facility] (unknown) Encounters No information. Functional Status No information. Immunizations No information. Medications No information. Problems date description facility 2022-04-27 00:00 Elevated blood pressure reading [facility] Procedures date description facility 2022-04-26 00:00 X-ray of chest, single view [facility] pital Results/Labs test date author facility value unit interpret ation Result panel 1 (unknown) (no date[facility]) Result panel 2 (unknown) (no date) (unknown[facility]) Result panel 3 (unknown) (no date) (unknown[facility]) Result panel 4 (unknown) (no date) (unknown[facility]) Result panel 5 (unknown) (no date) (unknown[facility]) Result panel 6 (unknown) (no date) (unknown[facility]) Result panel 7 (unknown) (no date) (unknown[facility]) Result panel 8 (unknown) (no date) (unknown[facility]) Result panel 9 (unknown) (no date) (unknown[facility]) Result panel 10 (unknown) (no date) (unknown[facility]) Result panel 11 (unknown) (no date) (unknown[facility]) Result panel 12 (unknown) (no date) (unknown[facility]) Result panel 13 (unknown) (no date) (unknown[facility]) Result panel 14 (unknown) (no date) (unknown[facility]) Result panel 15 (unknown) (no date) (unknown[facility]) Result panel 16 (unknown) (no date) (unknown[facility]) Result panel 17 (unknown) (no date) (unknown[facility]) Result panel 18 (unknown) (no date) (unknown[facility]) Result panel 19 (unknown) (no date) (unknown[facility]) Result panel 20 (unknown) (no date) (unknown[facility]) Result panel 21 (unknown) (no date) (unknown[facility]) Result panel 22 (unknown) (no date) (unknown[facility]) Result panel 23 (unknown) (no date) (unknown[facility]) Result panel 24 (unknown) (no date) (unknown[facility]) Result panel 25 (unknown) (no date) (unknown[facility]) Result panel 26 (unknown) (no date) (unknown[facility]) Result panel 27 (unknown) (no date) (unknown[facility]) Result panel 28 (unknown) (no date) (unknown[facility]) Result panel 29 (unknown) (no date) (unknown[facility]) Result panel 30 (unknown) (no date) (unknown[facility]) Result panel 31 (unknown) (no date) (unknown[facility]) Result panel 32 (unknown) (no date) (unknown[facility]) Result panel 33 (unknown) (no date) (unknown[facility]) Result panel 34 (unknown) (no date) (unknown[facility]) Result panel 35 (unknown) (no date) (unknown[facility]) Result panel 36 (unknown) (no date) (unknown[facility]) Result panel 37 (unknown) (no date) (unknown[facility]) Result panel 38 (unknown) (no date) (unknown[facility]) Result panel 39 (unknown) (no date) (unknown[facility]) Result panel 40 (unknown) (no date) (unknown[facility]) Result panel 41 (unknown) (no date) (unknown[facility]) Result panel 42 (unknown) (no date) (unknown[facility]) Result panel 43 (unknown) (no date) (unknown[facility]) Result panel 44 (unknown) (no date) (unknown[facility]) Result panel 45 (unknown) (no date) (unknown[facility]) Result panel 46 (unknown) (no date) (unknown[facility]) Result panel 47 (unknown) (no date) (unknown[facility]) Result panel 48 (unknown) (no date) (unknown[facility]) Result panel 49 (unknown) (no date) (unknown[facility]) Result panel 50 (unknown) (no date) (unknown[facility]) Result panel 51 (unknown) (no date) (unknown[facility]) Result panel 52 (unknown) (no date) (unknown[facility]) Result panel 53 (unknown) (no date) (unknown[facility]) Result panel 54 (unknown) (no date) (unknown[facility]) Result panel 55 (unknown) (no date) (unknown[facility]) Result panel 56 (unknown) (no date) (unknown[facility]) Result panel 57 (unknown) (no date) (unknown[facility]) Result panel 58 (unknown) (no date) (unknown[facility]) Result panel 59 (unknown) (no date) (unknown[facility]) Result panel 60 (unknown) (no date) (unknown[facility]) Result panel 61 (unknown) (no date) (unknown[facility]) Result panel 62 (unknown) (no date) (unknown[facility]) Result panel 63 (unknown) (no date) (unknown[facility]) Result panel 64 (unknown) (no date) (unknown[facility]) Result panel 65 (unknown) (no date) (unknown[facility]) Result panel 66 (unknown) (no date) (unknown[facility]) Result panel 67 (unknown) (no date) (unknown[facility]) Result panel 68 (unknown) (no date) (unknown[facility]) Result panel 69 (unknown) (no date) (unknown[facility]) Result panel 70 (unknown) (no date) (unknown[facility]) Result panel 71 (unknown) (no date) (unknown[facility]) Result panel 72 (unknown) (no date) (unknown[facility]) Result panel 73 (unknown) (no date) (unknown[facility]) Result panel 74 (unknown) (no date) (unknown[facility]) Result panel 75 (unknown) (no date) (unknown[facility]) Result panel 76 (unknown) (no date) (unknown[facility]) Result panel 77 (unknown) (no date) (unknown[facility]) Result panel 78 (unknown) (no date) (unknown[facility]) Result panel 79 (unknown) (no date) (unknown[facility]) Result panel 80 (unknown) (no date) (unknown) [facility]) Result panel 81 (unknown) (no date) (unknown[facility]) Result panel 82 (unknown) (no date) (unknown[facility]) Result panel 83 (unknown) (no date) (unknown) [facility]) Result panel 84 (unknown) (no date) (unknown) [facility]) Result panel 85 (unknown) (no date) (unknown) [facility]) Result panel 86 (unknown) (no date) (unknown[facility]) Result panel 87 (unknown) (no date) (unknown[facility]) Result panel 88 (unknown) (no date) (unknown[facility]) Result panel 89 (unknown) (no date) (unknown[facility]) Result panel 90 (unknown) (no date) (unknown[facility]) Result panel 91 (unknown) (no (unknown) (unknown) (no value) (units (unk nown) date) unknown) (unknown) (no (unknown) (unknown) [id number] (units (unkno wn) date) unknown) (unknown) (no (unknown) (unknown) 04/26/22 (units (unkno wn) date) unknown) (unknown) (no (unknown) (unknown) [facility] [address] [place] [address] (units (unknown) date) unknown) (unknown) (no (unknown) (unknown) Accession Number: (units (unknown) date) [id number] unknown) (unknown) (no (unknown) (unknown) Age/Sex: 42 / F (units (unknown) date) Date of Service: unknown) (unknown) (no (unknown) (unknown) [place], [place] (units ( unknown) date) [id number] unknown) (unknown) (no (unknown) (unknown) Approved by: (units (u nknown) date) Carrillo Jett M.D. unknown) on 04/26/2022 at 23:38 (unknown) (no (unknown) (unknown) Bones and chest (units (unknown) date) wall: No unknown) suspicious bony lesions. Overlying soft tissues (unknown) (no (unknown) (unknown) COMPARISON: None. (units (unknown) date) unknown) (unknown) (no (unknown) (unknown) : 1980 (units (unknown) date) Acct:[id number] unknown) (unknown) (no (unknown) (unknown) Dictated by: (units (u nknown) date) Carrillo Jett M.D. unknown) on 04/26/2022 at 23:37 (unknown) (no (unknown) (unknown) FINDINGS: (units (unkn own) date) unknown) (unknown) (no (unknown) (unknown) IMPRESSION: (units (un known) date) unknown) (unknown) (no (unknown) (unknown) INDICATIONS: (units (u nknown) date) chest pain unknown) (unknown) (no (unknown) (unknown) [facility] (units (unknown) date) unknown) (unknown) (no (unknown) (unknown) Loc: ED (units (unkno wn) date) unknown) (unknown) (no (unknown) (unknown) Lungs and pleura: (units (unknown) date) Lungs are clear. unknown) No pleural effusions or pneumothorax. (unknown) (no (unknown) (unknown) Mediastinum: (units (u nknown) date) Mediastinal unknown) contours appear normal. Heart size is normal. (unknown) (no (unknown) (unknown) No acute (units (unkno wn) date) cardiopulmonary unknown) abnormality. (unknown) (no (unknown) (unknown) Ordering (units (unkno wn) date) Provider: unknown) Donna Devries D.O. (unknown) (no (unknown) (unknown) PROCEDURE: XR (units ( unknown) date) CHEST 1V unknown) (unknown) (no (unknown) (unknown) Patient: (units (unkno wn) date) Aruna Phillips unknown) MR#: [id number] (unknown) (no (unknown) (unknown) Procedure: XR (units ( unknown) date) chest 1V unknown) (unknown) (no (unknown) (unknown) Signed (units (unkno wn) date) unknown) (unknown) (no (unknown) (unknown) Surgical changes (units (unknown) date) and devices: None. unknown) (unknown) (no (unknown) (unknown) TECHNIQUE: One (units (unknown) date) view of the chest unknown) was acquired. (unknown) (no (unknown) (unknown) XRay Report (units (un known) date) unknown) (unknown) (no (unknown) (unknown) appear (units (unkno wn) date) unknown) (unknown) (no (unknown) (unknown) unremarkable. (units ( unknown) date) unknown) Result panel 92 (unknown) (no date) (unknown) (unknown) 1.2 % (unkn own) (unknown) (no date) (unknown) (unknown) 100 /ul (unkn own) (unknown) (no date) (unknown) (unknown) 13.6 g/dl (unkn own) (unknown) (no date) (unknown) (unknown) 14.7 % (unkn own) (unknown) (no date) (unknown) (unknown) 2.1 % (unkn own) (unknown) (no date) (unknown) (unknown) 200 /ul (unkn own) (unknown) (no date) (unknown) (unknown) 2300 /ul (unkn own) (unknown) (no date) (unknown) (unknown) 28.6 pg (unkn own) (unknown) (no date) (unknown) (unknown) 32.1 % (unkn own) (unknown) (no date) (unknown) (unknown) 33.8 % (unkn own) (unknown) (no date) (unknown) (unknown) 355 x10 3/ul (unkn own) (unknown) (no date) (unknown) (unknown) 4.76 x10 6/ul (unkn own) (unknown) (no date) (unknown) (unknown) 40.3 % (unkn own) (unknown) (no date) (unknown) (unknown) 400 /ul (unkn own) (unknown) (no date) (unknown) (unknown) 4300 /ul (unkn own) (unknown) (no date) (unknown) (unknown) 5.9 % (unkn own) (unknown) (no date) (unknown) (unknown) 58.7 % (unkn own) (unknown) (no date) (unknown) (unknown) 7.3 x10 3/ul (unkn own) (unknown) (no date) (unknown) (unknown) 84.7 fl (unkn own) Result panel 93 (unknown) (no date) (unknown) (unknown) 1.1 (units unknown) (unknown) (unknown) (no date) (unknown) (unknown) 12.3 seconds (unkn own) (unknown) (no date) (unknown) (unknown) 30 seconds (unkn own) (unknown) (no date) (unknown) (unknown) 30 seconds (unkn own) Result panel 94 (unknown) (no date) (unknown) (unknown) > 60 ml/min (unkn own) (unknown) (no date) (unknown) (unknown) > 60 ml/min (unkn own) (unknown) (no date) (unknown) (unknown) 0.2 mg/dl (unkn own) (unknown) (no date) (unknown) (unknown) 1.12 mg/dl (unkn own) (unknown) (no date) (unknown) (unknown) 1.4 (units (unkn own) unknown) (unknown) (no date) (unknown) (unknown) 104 mmol/l (unkn own) (unknown) (no date) (unknown) (unknown) 138 mmol/l (unkn own) (unknown) (no date) (unknown) (unknown) 16.1 (units (unkn own) unknown) (unknown) (no date) (unknown) (unknown) 18 mg/dl (unkn own) (unknown) (no date) (unknown) (unknown) 2.0 mg/dl (unkn own) (unknown) (no date) (unknown) (unknown) 24 iu/l (unkn own) (unknown) (no date) (unknown) (unknown) 26 mmol/l (unkn own) (unknown) (no date) (unknown) (unknown) 3.0 g/dl (unkn own) (unknown) (no date) (unknown) (unknown) 34 iu/l (unkn own) (unknown) (no date) (unknown) (unknown) 4.0 mmol/l (unkn own) (unknown) (no date) (unknown) (unknown) 4.2 g/dl (unkn own) (unknown) (no date) (unknown) (unknown) 43 u/l (unkn own) (unknown) (no date) (unknown) (unknown) 7.2 g/dl (unkn own) (unknown) (no date) (unknown) (unknown) 70 u/l (unkn own) (unknown) (no date) (unknown) (unknown) 78 u/l (unkn own) (unknown) (no date) (unknown) (unknown) 8.9 mg/dl (unkn own) (unknown) (no date) (unknown) (unknown) 98 mg/dl (unkn own) (unknown) (no date) (unknown) (unknown) 98 mg/dl (unkn own) (unknown) (no date) (unknown) (unknown) Test not % (unkn own) performed (unknown) (no date) (unknown) (unknown) Test not % (unkn own) performed (unknown) (no date) (unknown) (unknown) Test not ng/ml (unkn own) performed (unknown) (no date) (unknown) (unknown) Test not ng/ml (unkn own) performed Result panel 95 (unknown) (no date) (unknown) (unknown) > 60 ml/min (unkn own) (unknown) (no date) (unknown) (unknown) > 60 ml/min (unkn own) (unknown) (no date) (unknown) (unknown) < 0.012 ng/ml (unkn own) (unknown) (no date) (unknown) (unknown) < 0.012 ng/ml (unkn own) (unknown) (no date) (unknown) (unknown) 0.2 mg/dl (unkn own) (unknown) (no date) (unknown) (unknown) 1.12 mg/dl (unkn own) (unknown) (no date) (unknown) (unknown) 1.4 (units (unkn own) unknown) (unknown) (no date) (unknown) (unknown) 104 mmol/l (unkn own) (unknown) (no date) (unknown) (unknown) 138 mmol/l (unkn own) (unknown) (no date) (unknown) (unknown) 16.1 (units (unkn own) unknown) (unknown) (no date) (unknown) (unknown) 18 mg/dl (unkn own) (unknown) (no date) (unknown) (unknown) 2.0 mg/dl (unkn own) (unknown) (no date) (unknown) (unknown) 24 iu/l (unkn own) (unknown) (no date) (unknown) (unknown) 26 mmol/l (unkn own) (unknown) (no date) (unknown) (unknown) 3.0 g/dl (unkn own) (unknown) (no date) (unknown) (unknown) 34 iu/l (unkn own) (unknown) (no date) (unknown) (unknown) 4.0 mmol/l (unkn own) (unknown) (no date) (unknown) (unknown) 4.2 g/dl (unkn own) (unknown) (no date) (unknown) (unknown) 43 u/l (unkn own) (unknown) (no date) (unknown) (unknown) 7.2 g/dl (unkn own) (unknown) (no date) (unknown) (unknown) 70 u/l (unkn own) (unknown) (no date) (unknown) (unknown) 78 u/l (unkn own) (unknown) (no date) (unknown) (unknown) 8.9 mg/dl (unkn own) (unknown) (no date) (unknown) (unknown) 98 mg/dl (unkn own) (unknown) (no date) (unknown) (unknown) 98 mg/dl (unkn own) (unknown) (no date) (unknown) (unknown) Test not % (unkn own) performed (unknown) (no date) (unknown) (unknown) Test not % (unkn own) performed (unknown) (no date) (unknown) (unknown) Test not ng/ml (unkn own) performed (unknown) (no date) (unknown) (unknown) Test not ng/ml (unkn own) performed Result panel 96 (unknown) (no date) (unknown) (unknown) Negative (units (unkn own) unknown) (unknown) (no date) (unknown) (unknown) Negative (units (unkn own) unknown) Result panel 97 (unknown) (no (unknown) (unknown) (no value) (units (unk nown) date) unknown) (unknown) (no (unknown) (unknown) (Tylenol Extra (units (unknown) date) Strength) unknown) (unknown) (no (unknown) (unknown) (Victoza 3-Miguel Angel) (units (unknown) date) unknown) (unknown) (no (unknown) (unknown) 00:20 (units (unkno wn) date) unknown) (unknown) (no (unknown) (unknown) 10 mg PO DAILY (units (unknown) date) unknown) (unknown) (no (unknown) (unknown) 100 mg PO BID (units ( unknown) date) Qty: 20 0RF unknown) (unknown) (no (unknown) (unknown) 04/26/22 04/26/22 (units (unknown) date) 04/26/22 unknown) Range/Units (unknown) (no (unknown) (unknown) 04/26/22 22:54 (units (unknown) date) unknown) (unknown) (no (unknown) (unknown) 04/26/22 23:10 (units (unknown) date) unknown) (unknown) (no (unknown) (unknown) 04/26/22 (units (unkno wn) date) unknown) (unknown) (no (unknown) (unknown) 04/27/22 00:20 (units (unknown) date) unknown) (unknown) (no (unknown) (unknown) 04/27/22 (units (unkno wn) date) Range/Units unknown) (unknown) (no (unknown) (unknown) 125 mcg PO DAILY (units (unknown) date) unknown) (unknown) (no (unknown) (unknown) 22:45 (units (unkno wn) date) unknown) (unknown) (no (unknown) (unknown) 23:10 23:10 23:10 (units (unknown) date) unknown) (unknown) (no (unknown) (unknown) 30 mg PO DAILY (units (unknown) date) unknown) (unknown) (no (unknown) (unknown) [id number] (units (unkno wn) date) unknown) (unknown) (no (unknown) (unknown) 500 mg PO Q6H PRN (units (unknown) date) unknown) (unknown) (no (unknown) (unknown) 800 mg PO BID (units ( unknown) date) unknown) (unknown) (no (unknown) (unknown) 88 mcg PO DAILY (units (unknown) date) unknown) (unknown) (no (unknown) (unknown) ? (units (unkno wn) date) unknown) (unknown) (no (unknown) (unknown) ALT (<35) IU/L (units (unknown) date) unknown) (unknown) (no (unknown) (unknown) ALT 34 (<35) IU/L (units (unknown) date) unknown) (unknown) (no (unknown) (unknown) APTT (26-36) (units (u nknown) date) SECONDS unknown) (unknown) (no (unknown) (unknown) APTT 30 (26-36) (units (unknown) date) SECONDS unknown) (unknown) (no (unknown) (unknown) AST (14-36) IU/L (units (unknown) date) unknown) (unknown) (no (unknown) (unknown) AST 24 (14-36) (units (unknown) date) IU/L unknown) (unknown) (no (unknown) (unknown) Accession Number: (units (unknown) date) [id number] ?? unknown) (unknown) (no (unknown) (unknown) Acct:[id number] (units (unknown) date) unknown) (unknown) (no (unknown) (unknown) Age/Sex: 42 / F (units (unknown) date) unknown) (unknown) (no (unknown) (unknown) Albumin (3.5-5.0) (units (unknown) date) g/dL unknown) (unknown) (no (unknown) (unknown) Albumin 4.2 (units (un known) date) (3.5-5.0) g/dL unknown) (unknown) (no (unknown) (unknown) Albumin/Globulin (units (unknown) date) Ratio (1.0-2.8) unknown) (unknown) (no (unknown) (unknown) Albumin/Globulin (units (unknown) date) Ratio 1.4 unknown) (1.0-2.8) (unknown) (no (unknown) (unknown) Alkaline (units (unkno wn) date) Phosphatase unknown) (38-126) U/L (unknown) (no (unknown) (unknown) Alkaline (units (unkno wn) date) Phosphatase 70 unknown) (38-126) U/L (unknown) (no (unknown) (unknown) Allergies (units (unkn own) date) unknown) (unknown) (no (unknown) (unknown) Allergy/AdvReac (units (unknown) date) Type Severity unknown) Reaction Status Date / Time (unknown) (no (unknown) (unknown) BUN (7-17) mg/dL (units (unknown) date) unknown) (unknown) (no (unknown) (unknown) BUN 18 H (7-17) (units (unknown) date) mg/dL unknown) (unknown) (no (unknown) (unknown) BUN/Creatinine (units (unknown) date) Ratio (6-22) unknown) (unknown) (no (unknown) (unknown) BUN/Creatinine (units (unknown) date) Ratio 16.1 (6-22) unknown) (unknown) (no (unknown) (unknown) Baso # (Auto) (units ( unknown) date) (0-100) /uL unknown) (unknown) (no (unknown) (unknown) Baso # (Auto) 100 (units (unknown) date) (0-100) /uL unknown) (unknown) (no (unknown) (unknown) Baso % (Auto) (units ( unknown) date) (0-2) % unknown) (unknown) (no (unknown) (unknown) Baso % (Auto) 1.2 (units (unknown) date) (0-2) % unknown) (unknown) (no (unknown) (unknown) Bedside Urine (units ( unknown) date) Bilirubin - unknown) Negative (unknown) (no (unknown) (unknown) Bedside Urine (units ( unknown) date) Glucose Negative unknown) (unknown) (no (unknown) (unknown) Bedside Urine (units ( unknown) date) Ketone - Negative unknown) (unknown) (no (unknown) (unknown) Bedside Urine (units ( unknown) date) Leukocytes - unknown) Negative (unknown) (no (unknown) (unknown) Bedside Urine (units ( unknown) date) Nitrite + Positive unknown) (unknown) (no (unknown) (unknown) Bedside Urine (units ( unknown) date) Occult Blood - unknown) Negative (unknown) (no (unknown) (unknown) Bedside Urine (units ( unknown) date) Protein - Negative unknown) (unknown) (no (unknown) (unknown) Bedside Urine (units ( unknown) date) Urobilinogen - unknown) Negative (unknown) (no (unknown) (unknown) Bedside Urine pH (units (unknown) date) 6.0 unknown) (unknown) (no (unknown) (unknown) Blood Pressure (units (unknown) date) 160/80 H 04/26/22 unknown) 22:45 (unknown) (no (unknown) (unknown) Blood Pressure (units (unknown) date) 160/80 H unknown) (unknown) (no (unknown) (unknown) Bones and chest (units (unknown) date) wall:? No unknown) suspicious bony lesions.? Overlying soft tissues (unknown) (no (unknown) (unknown) CK-MB (CK-2) Rel (units (unknown) date) Index TNP unknown) (unknown) (no (unknown) (unknown) CK-MB (CK-2) Rel (units (unknown) date) Index unknown) (unknown) (no (unknown) (unknown) CK-MB (CK-2) TNP (units (unknown) date) unknown) (unknown) (no (unknown) (unknown) CK-MB (CK-2) (units (u nknown) date) unknown) (unknown) (no (unknown) (unknown) COMPARISON:? (units (u nknown) date) None. 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 unknown) (unknown) (no (unknown) (unknown) Cervicogenic (units (u nknown) date) headache unknown) (unknown) (no (unknown) (unknown) Chest x-ray: (units (u nknown) date) unknown) (unknown) (no (unknown) (unknown) Chief complaint: (units (unknown) date) Hypertension unknown) (unknown) (no (unknown) (unknown) Chloride (98-107) (units (unknown) date) mmol/L unknown) (unknown) (no (unknown) (unknown) Chloride 104 (units (u nknown) date) (98-107) mmol/L unknown) (unknown) (no (unknown) (unknown) Complete Blood (units (unknown) date) Count AUTO DIFF unknown) Stat (unknown) (no (unknown) (unknown) Comprehensive (units ( unknown) date) Metabolic Panel unknown) Stat (unknown) (no (unknown) (unknown) Course (units (unkno wn) date) unknown) (unknown) (no (unknown) (unknown) Creatinine (units (unk nown) date) (0.52-1.04) mg/dL unknown) (unknown) (no (unknown) (unknown) Creatinine 1.12 H (units (unknown) date) (0.52-1.04) mg/dL unknown) (unknown) (no (unknown) (unknown) : 1980 (units (unknown) date) Acct:[id number] unknown) (unknown) (no (unknown) (unknown) : 1980 (units (unknown) date) unknown) (unknown) (no (unknown) (unknown) Date of Service: (units (unknown) date) 04/26/22 unknown) (unknown) (no (unknown) (unknown) Departure (units (unkn own) date) unknown) (unknown) (no (unknown) (unknown) Dictated by: (units (u nknown) date) Carrillo Jett M.D. unknown) on 04/26/2022 at 23:37 ? ? (unknown) (no (unknown) (unknown) Discharge Plan (units (unknown) date) unknown) (unknown) (no (unknown) (unknown) ECG Data (units (unkno wn) date) unknown) (unknown) (no (unknown) (unknown) ED Orders (units (unkn own) date) unknown) (unknown) (no (unknown) (unknown) EKG-12 Lead Stat (units (unknown) date) unknown) (unknown) (no (unknown) (unknown) ER Physician: (units ( unknown) date) Donna Devries unknown) D.O. (unknown) (no (unknown) (unknown) Emergency Report (units (unknown) date) unknown) (unknown) (no (unknown) (unknown) Eos # (Auto) (units (u nknown) date) (0-450) /uL unknown) (unknown) (no (unknown) (unknown) Eos # (Auto) 200 (units (unknown) date) (0-450) /uL unknown) (unknown) (no (unknown) (unknown) Eos % (Auto) (units (u nknown) date) (2-4) % unknown) (unknown) (no (unknown) (unknown) Eos % (Auto) 2.1 (units (unknown) date) (2-4) % unknown) (unknown) (no (unknown) (unknown) Esterase (units (unkno wn) date) unknown) (unknown) (no (unknown) (unknown) Estimated GFR > (units (unknown) date) 60 (>60) mL/min unknown) (unknown) (no (unknown) (unknown) Estimated GFR (units ( unknown) date) (>60) mL/min unknown) (unknown) (no (unknown) (unknown) Exam (units (unkno wn) date) unknown) (unknown) (no (unknown) (unknown) FINDINGS:? (units (unk nown) date) unknown) (unknown) (no (unknown) (unknown) Family History (units (unknown) date) (Reviewed 02/17/22 unknown) @ 10:45 by Ran Bourgeois DO) (unknown) (no (unknown) (unknown) Father (units (unkno wn) date) Hypertension unknown) (unknown) (no (unknown) (unknown) General (units (unkno wn) date) unknown) (unknown) (no (unknown) (unknown) Globulin (units (unkno wn) date) (1.7-4.1) g/dL unknown) (unknown) (no (unknown) (unknown) Globulin 3.0 (units (u nknown) date) (1.7-4.1) g/dL unknown) (unknown) (no (unknown) (unknown) Glucose (70-100) (units (unknown) date) mg/dL unknown) (unknown) (no (unknown) (unknown) Glucose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 unknown) blood pressure. She had some mild headache (unknown) (no (unknown) (unknown) Patient: (units (unkno wn) date) AlanAruna unknown) MR#: [id number] (unknown) (no (unknown) (unknown) Patient: (units (unkno wn) date) AlanAruna unknown) (unknown) (no (unknown) (unknown) Penicillins (units (un known) date) Allergy Verified unknown) 09/19/22 09:59 (unknown) (no (unknown) (unknown) Plt Count (units (unkn own) date) (150-400) X103/uL unknown) (unknown) (no (unknown) (unknown) Plt Count 355 (units ( unknown) date) (150-400) X103/uL unknown) (unknown) (no (unknown) (unknown) Point of care (units ( unknown) date) testing: unknown) (unknown) (no (unknown) (unknown) Potassium (units (unkn own) date) (3.4-5.1) mmol/L unknown) (unknown) (no (unknown) (unknown) Potassium 4.0 (units ( unknown) date) (3.4-5.1) mmol/L unknown) (unknown) (no (unknown) (unknown) Prescriptions: (units (unknown) date) unknown) (unknown) (no (unknown) (unknown) Previous Rx's (units ( unknown) date) unknown) (unknown) (no (unknown) (unknown) Procedure: XR (units ( unknown) date) chest 1V unknown) (unknown) (no (unknown) (unknown) Prothrombin Time (units (unknown) date) INR Stat unknown) (unknown) (no (unknown) (unknown) Pulse Oximetry (units (unknown) date) 100 99 unknown) (unknown) (no (unknown) (unknown) Pulse Oximetry 98 (units (unknown) date) 100 unknown) (unknown) (no (unknown) (unknown) Pulse Oximetry 98 (units (unknown) date) 04/26/22 22:45 unknown) (unknown) (no (unknown) (unknown) Pulse Oximetry 99 (units (unknown) date) unknown) (unknown) (no (unknown) (unknown) Pulse Rate 66 65 (units (unknown) date) unknown) (unknown) (no (unknown) (unknown) Pulse Rate 71 (units ( unknown) date) unknown) (unknown) (no (unknown) (unknown) Pulse Rate 83 (units ( unknown) date) 04/26/22 22:45 unknown) (unknown) (no (unknown) (unknown) Pulse Rate 83 83 (units (unknown) date) unknown) (unknown) (no (unknown) (unknown) RBC (4.0-5.2) (units ( unknown) date) X106/uL unknown) (unknown) (no (unknown) (unknown) RBC 4.76 (units (unkno wn) date) (4.0-5.2) X106/uL unknown) (unknown) (no (unknown) (unknown) RDW (11.6-14.8) % (units (unknown) date) unknown) (unknown) (no (unknown) (unknown) RDW 14.7 (units (unkno wn) date) (11.6-14.8) % unknown) (unknown) (no (unknown) (unknown) RESPIRATORY: (units (u nknown) date) Breath sounds unknown) equal bilaterally, no wheezes rales or rhonchi. (unknown) (no (unknown) (unknown) RESPIRATORY: (units (u nknown) date) Denies dyspnea, unknown) cough, wheezing, hemoptysis, sputum. (unknown) (no (unknown) (unknown) Radiologist's (units ( unknown) date) Impression: unknown) (unknown) (no (unknown) (unknown) Referrals: (units (unk nown) date) unknown) (unknown) (no (unknown) (unknown) Related Data (units (u nknown) date) unknown) (unknown) (no (unknown) (unknown) Respiratory Rate (units (unknown) date) 19 21 unknown) (unknown) (no (unknown) (unknown) Respiratory Rate (units (unknown) date) 20 04/26/22 22:45 unknown) (unknown) (no (unknown) (unknown) Respiratory Rate (units (unknown) date) 20 unknown) (unknown) (no (unknown) (unknown) Respiratory Rate (units (unknown) date) 26 H unknown) (unknown) (no (unknown) (unknown) Result diagrams: (units (unknown) date) unknown) (unknown) (no (unknown) (unknown) Review of Systems (units (unknown) date) unknown) (unknown) (no (unknown) (unknown) SARS-CoV-2 (PCR) (units (unknown) date) (Negative) unknown) (unknown) (no (unknown) (unknown) SARS-CoV-2 (PCR) (units (unknown) date) Negative unknown) (Negative) (unknown) (no (unknown) (unknown) SKIN: No rash, no (units (unknown) date) erythema, no unknown) pruritus (unknown) (no (unknown) (unknown) SKIN: Warm, dry, (units (unknown) date) no laceration, no unknown) petechiae, no rashes or lesions. (unknown) (no (unknown) (unknown) SUBCUT (units (unkno wn) date) unknown) (unknown) (no (unknown) (unknown) Signed By: (units (unk nown) date) unknown) (unknown) (no (unknown) (unknown) Signed (units (unkno wn) date) unknown) (unknown) (no (unknown) (unknown) Smoking Status: (units (unknown) date) Former smoker unknown) (unknown) (no (unknown) (unknown) Social History (units (unknown) date) (Reviewed 02/01/19 unknown) @ 01:00 by Eddie Ware DO) (unknown) (no (unknown) (unknown) Sodium (137-145) (units (unknown) date) mmol/L unknown) (unknown) (no (unknown) (unknown) Sodium 138 (units (unk nown) date) (137-145) mmol/L unknown) (unknown) (no (unknown) (unknown) Source: patient (units (unknown) date) unknown) (unknown) (no (unknown) (unknown) Stated complaint: (units (unknown) date) BP 160/110 - unknown) 190/128, feel very bad (unknown) (no (unknown) (unknown) Substance Use (units ( unknown) date) Type: marijuana unknown) and prescription drug (unknown) (no (unknown) (unknown) Surgical History (units (unknown) date) (Reviewed 02/17/22 unknown) @ 10:45 by Ran Bourgeois DO) (unknown) (no (unknown) (unknown) Surgical changes (units (unknown) date) and devices:? unknown) None.? (unknown) (no (unknown) (unknown) TECHNIQUE:? One (units (unknown) date) view of the chest unknown) was acquired.? (unknown) (no (unknown) (unknown) Temperature 97.0 (units (unknown) date) F L 04/26/22 22:45 unknown) (unknown) (no (unknown) (unknown) Temperature 97.0 (units (unknown) date) F L unknown) (unknown) (no (unknown) (unknown) Temperature (units (un known) date) unknown) (unknown) (no (unknown) (unknown) Time Seen by (units (u nknown) date) Provider: 04/27/22 unknown) 01:09 (unknown) (no (unknown) (unknown) Total Bilirubin (units (unknown) date) (0.2-1.3) mg/dL unknown) (unknown) (no (unknown) (unknown) Total Bilirubin (units (unknown) date) 0.2 (0.2-1.3) unknown) mg/dL (unknown) (no (unknown) (unknown) Total Creatine (units (unknown) date) Kinase (30-135) unknown) U/L (unknown) (no (unknown) (unknown) Total Creatine (units (unknown) date) Kinase 43 (30-135) unknown) U/L (unknown) (no (unknown) (unknown) Total Protein (units ( unknown) date) (6.3-8.2) g/dL unknown) (unknown) (no (unknown) (unknown) Total Protein 7.2 (units (unknown) date) (6.3-8.2) g/dL unknown) (unknown) (no (unknown) (unknown) Troponin + CK (units ( unknown) date) Cardiac Panel Stat unknown) (unknown) (no (unknown) (unknown) Troponin I < (units (u nknown) date) 0.012 (0.01-0.034) unknown) ng/mL (unknown) (no (unknown) (unknown) Troponin I (units (unk nown) date) (0.01-0.034) ng/mL unknown) (unknown) (no (unknown) (unknown) Urine Dip (units (unkn own) date) unknown) (unknown) (no (unknown) (unknown) Urine Specific (units (unknown) date) Shields 1.025 unknown) (unknown) (no (unknown) (unknown) Victoza 3-Miguel Angel 0.6 (units (unknown) date) mg/0.1 mL (18 mg/3 unknown) mL) pen injector (unknown) (no (unknown) (unknown) Visit Report (units (u nknown) date) Forms: Patient unknown) Portal/API (unknown) (no (unknown) (unknown) Vital Signs - 8 (units (unknown) date) hr unknown) (unknown) (no (unknown) (unknown) Vital Signs (units (un known) date) unknown) (unknown) (no (unknown) (unknown) Vital signs: (units (u nknown) date) unknown) (unknown) (no (unknown) (unknown) WBC (4.5-11.0) (units (unknown) date) X103/uL unknown) (unknown) (no (unknown) (unknown) WBC 7.3 (units (unkno wn) date) (4.5-11.0) X103/uL unknown) (unknown) (no (unknown) (unknown) XR chest 1V Stat (units (unknown) date) unknown) (unknown) (no (unknown) (unknown) [Embedded Image (units (unknown) date) Not Available] unknown) (unknown) (no (unknown) (unknown) acetaminophen 500 (units (unknown) date) mg tablet 500 mg unknown) PO Q6H PRN 02/17/22 02/17/22 (unknown) (no (unknown) (unknown) acetaminophen (units ( unknown) date) [From Vicodin] unknown) Allergy Verified 02/17/22 09:59 (unknown) (no (unknown) (unknown) acetaminophen (units ( unknown) date) [Tylenol Extra unknown) Strength] 500 mg tablet (unknown) (no (unknown) (unknown) alcohol intake (units (unknown) date) frequency: unknown) holidays/special occasions only (unknown) (no (unknown) (unknown) appear (units (unkno wn) date) unknown) (unknown) (no (unknown) (unknown) bimatoprost (units (un known) date) Allergy Verified unknown) 02/17/22 09:59 (unknown) (no (unknown) (unknown) blood pressure. (units (unknown) date) She really denies unknown) any chest pain or shortness of breath. She (unknown) (no (unknown) (unknown) blood work is (units ( unknown) date) overall reassuring unknown) blood pressures come down without any sort of (unknown) (no (unknown) (unknown) bupropion [From (units (unknown) date) Wellbutrin] unknown) Allergy Verified 02/17/22 09:59 (unknown) (no (unknown) (unknown) cholecalciferol (units (unknown) date) (vitamin D3) 125 unknown) 125 mcg PO DAILY 02/17/22 02/17/22 (unknown) (no (unknown) (unknown) cholecalciferol (units (unknown) date) (vitamin D3) 125 unknown) mcg (5,000 unit) capsule (unknown) (no (unknown) (unknown) codeine Allergy (units (unknown) date) Verified 02/17/22 unknown) 09:59 (unknown) (no (unknown) (unknown) confusion (units (unkn own) date) unknown) (unknown) (no (unknown) (unknown) constipation, (units ( unknown) date) melena. unknown) (unknown) (no (unknown) (unknown) decided to check (units (unknown) date) her blood pressure unknown) she was having mild headache noted to be (unknown) (no (unknown) (unknown) dextroamphetamine (units (unknown) date) -amphetamine 30 30 unknown) mg PO DAILY 02/17/22 02/17/22 (unknown) (no (unknown) (unknown) dextroamphetamine (units (unknown) date) -amphetamine 30 mg unknown) tablet (unknown) (no (unknown) (unknown) doxycycline (units (un known) date) hyclate 100 mg unknown) tablet 100 mg PO BID #20 tabs 01/31/19 (unknown) (no (unknown) (unknown) doxycycline (units (un known) date) hyclate 100 mg unknown) tablet (unknown) (no (unknown) (unknown) elevated 160/80. (units (unknown) date) She then checked unknown) it at home and over the last 2 days and it (unknown) (no (unknown) (unknown) erythromycin base (units (unknown) date) Allergy Verified unknown) 02/17/22 09:59 (unknown) (no (unknown) (unknown) escitalopram (units (u nknown) date) [From Lexapro] unknown) Allergy Verified 02/17/22 09:59 (unknown) (no (unknown) (unknown) ezetimibe 10 mg (units (unknown) date) tablet 10 mg PO unknown) DAILY 02/17/22 02/17/22 (unknown) (no (unknown) (unknown) ezetimibe 10 mg (units (unknown) date) tablet unknown) (unknown) (no (unknown) (unknown) gabapentin 800 mg (units (unknown) date) tablet 800 mg PO unknown) BID 02/17/22 02/17/22 (unknown) (no (unknown) (unknown) gabapentin 800 mg (units (unknown) date) tablet unknown) (unknown) (no (unknown) (unknown) guarding or (units (un known) date) rebound. unknown) (unknown) (no (unknown) (unknown) has not had any (units (unknown) date) fever or chills. unknown) No abdominal pain nausea vomiting. But has (unknown) (no (unknown) (unknown) her COVID tested (units (unknown) date) negative. She sees unknown) providers regularly for weight loss and (unknown) (no (unknown) (unknown) hydrocodone [From (units (unknown) date) Vicodin] Allergy unknown) Verified 02/17/22 09:59 (unknown) (no (unknown) (unknown) hydromorphone (units ( unknown) date) Allergy Verified unknown) 02/17/22 09:59 (unknown) (no (unknown) (unknown) indication for (units (unknown) date) any sort of unknown) medication. (unknown) (no (unknown) (unknown) intact (units (unkno wn) date) unknown) (unknown) (no (unknown) (unknown) interventions he (units (unknown) date) has absolutely no unknown) sign of end-organ damage. She is afebrile (unknown) (no (unknown) (unknown) inversion no (units (u nknown) date) ischemia unknown) (unknown) (no (unknown) (unknown) is negative. (units (u nknown) date) Please just unknown) monitor blood pressure once a day or at your providers (unknown) (no (unknown) (unknown) ketorolac Allergy (units (unknown) date) Verified 02/17/22 unknown) 09:59 (unknown) (no (unknown) (unknown) levothyroxine 88 (units (unknown) date) mcg tablet 88 mcg unknown) PO DAILY 04/20/18 02/17/22 (unknown) (no (unknown) (unknown) levothyroxine 88 (units (unknown) date) mcg tablet unknown) (unknown) (no (unknown) (unknown) liraglutide 0.6 (units (unknown) date) mg/0.1 mL (18 mg/3 unknown) ml SUBCUT 02/17/22 02/17/22 (unknown) (no (unknown) (unknown) mL) subcutaneous (units (unknown) date) pen injector unknown) (unknown) (no (unknown) (unknown) mcg (5,000 unit) (units (unknown) date) capsule unknown) (unknown) (no (unknown) (unknown) membranes (units (unkn own) date) unknown) (unknown) (no (unknown) (unknown) mg tablet (units (unkn own) date) unknown) (unknown) (no (unknown) (unknown) noted some things (units (unknown) date) are little bit unknown) off. (unknown) (no (unknown) (unknown) office. No (units (unk nown) date) indication to unknown) start medication now. (unknown) (no (unknown) (unknown) over 110, (units (unkn own) date) worsening headache unknown) chest pain shortness of breath or any new, (unknown) (no (unknown) (unknown) pain (units (unkno wn) date) unknown) (unknown) (no (unknown) (unknown) pain. (units (unkno wn) date) unknown) (unknown) (no (unknown) (unknown) prednisone (units (unk nown) date) Allergy Verified unknown) 02/17/22 09:59 (unknown) (no (unknown) (unknown) presenting today (units (unknown) date) with elevated unknown) blood pressure. They are visiting family she (unknown) (no (unknown) (unknown) remained (units (unkno wn) date) elevated. She said unknown) that extremely abnormal for her she always has low (unknown) (no (unknown) (unknown) sertraline [From (units (unknown) date) Zoloft] Allergy unknown) Verified 02/17/22 09:59 (unknown) (no (unknown) (unknown) shellfish derived (units (unknown) date) Allergy Verified unknown) 02/17/22 09:59 (unknown) (no (unknown) (unknown) tobacco type: (units ( unknown) date) cigarettes and unknown) vaping (unknown) (no (unknown) (unknown) tramadol Allergy (units (unknown) date) Verified 02/17/22 unknown) 09:59 (unknown) (no (unknown) (unknown) unremarkable.? (units (unknown) date) unknown) (unknown) (no (unknown) (unknown) venlafaxine (units (un known) date) Allergy Verified unknown) 02/17/22 09:59 (unknown) (no (unknown) (unknown) worsening or (units (u nknown) date) concerning unknown) symptoms Social History date description facility 2022-04-27 00:00 Ex-smoker ([facility] Vital Signs date measurement value units 2022-04-26 00:00 BMI 44.0 kg/m2 2022-04-26 00:00 height_metric 177.8 cm 2022-04-26 00:00 height_standard 70 in 2022-04-26 00:00 temperature_metric 36.11 C 2022-04-26 00:00 temperature_standard 97 F 2022-04-26 00:00 weight_metric 139.25 kg 2022-04-26 00:00 weight_standard 306.99 lb 2022-04-27 00:00 BP_diastolic 63 mmHg 2022-04-27 00:00 BP_systolic 128 mmHg 2022-04-27 00:00 heart_rate 65 /min 2022-04-27 00:00 o2_saturation 99 % 2022-04-27 00:00 respiration_rate 21 /min
== END 2022-07-06 18:49 | disposition home or self-care (01) ==
LOC: ED 17:38
DX: S67.21XA Crushing injury of right hand, initial encounter (principal); S60.511A Abrasion of right hand, initial encounter; W23.1XXA Caught, crushed, jammed, or pinched between stationary objects, initial encounter; Y92.9 Unspecified place or not applicable; E03.9 Hypothyroidism, unspecified; E11.9 Type 2 diabetes mellitus without complications; Z79.84 Long term (current) use of oral hypoglycemic drugs; Z79.899 Other long term (current) drug therapy
CPT/HCPCS: 99283

== ENCOUNTER 2022-08-14 09:56 | Outpatient (CLI) | payer MEDICAID ==
--- NOTE | 2022-08-14 17:46 | XRAY Report ---
PROCEDURE: Chest 2 View X-Ray INDICATIONS: PRE OP TECHNIQUE: 2 views of the chest were acquired. COMPARISON: None. FINDINGS: Surgical changes and devices: None. Lungs and pleura: No pleural effusions or pneumothorax. Lungs are clear. Mediastinum: Mediastinal contours are normal. Heart size is normal. Bones and chest wall: No suspicious bony abnormalities. Soft tissues appear unremarkable. IMPRESSION: Chest without acute cardiopulmonary abnormalities or focal airspace disease. Reviewed by: Sher Verduzco MD on 08/14/2022 4:45 PM [id number] Approved by: Sher Verduzco MD on 08/14/2022 4:45 PM AKDT Station ID: [id number]
== END 2022-08-14 09:57 | disposition home or self-care (01) ==
LOC: DI 09:56
PROVIDERS: ATTEND Surgery
DX: Z01.818 Encounter for other preprocedural examination (principal); E66.01 Morbid (severe) obesity due to excess calories; Z68.41 Body mass index [BMI] 40.0-44.9, adult

== ENCOUNTER 2022-09-25 08:00 | Outpatient (CLI) | payer OTHER, MEDICAID ==
--- NOTE | 2022-09-25 11:07 | XRAY Report ---
PROCEDURE: Shoulder 3 View RT INDICATIONS: RIGHT SHOULDER PAIN TECHNIQUE: 3 views of the shoulder were acquired. COMPARISON: 09/24/2021 FINDINGS: Bones: No fractures or dislocations. No suspicious bony lesions. Visualized ribs appear intact. Soft tissues: No suspicious soft tissue calcifications. IMPRESSION: No acute bony abnormality. If pain persists with conservative management, consider repeat radiographs in 10-14 days or cross-sectional imaging. Reviewed by: Basil Delatorre MD on 09/25/2022 11:06 AM PDT Approved by: Basil Delatorre MD on 09/25/2022 11:06 AM PDT Station ID: [id number]
== END 2022-09-25 23:59 | disposition home or self-care (01) ==
LOC: DI.WOS 08:00
PROVIDERS: ATTEND Orthopaedic Surgery
DX: M75.101 Unspecified rotator cuff tear or rupture of right shoulder, not specified as traumatic (principal)

== ENCOUNTER 2022-10-15 10:33 | Emergency (ER) | payer MEDICAID ==
--- NOTE | 2022-10-15 10:48 | ED Physician Documentation ---
PD HPI ABD PAIN - Stated complaint Stated Complaint: ABD PX - Chief complaint Chief Complaint: Abd Pain - History obtained from History obtained from: Patient - History of Present Illness Timing - onset: Yesterday Timing - duration: Days (06/02) Timing - details: Gradual onset, Still present, Waxing and waning Quality: Cramping, Aching, Pain Location: LUQ, Periumbilical Radiation: No: Lower back, Left flank Improved by: No: Eating, Laying still Worsened by: Eating, Moving, Breathing, Palpation Associated symptoms: Fever, Nausea. No: Vomiting, Diarrhea, Melena, Hematochezia, Loss of appetite Similar symptoms before: Has not had sx before Recently seen: Surgery (gastric sleeve surgery 08/27/22) Review of Systems Constitutional: reports: Myalgias. denies: Fever, Chills Nose: reports: Congestion. denies: Rhinorrhea / runny nose Throat: denies: Sore throat Cardiac: denies: Chest pain / pressure, Pedal edema, Calf pain Respiratory: reports: Cough GI: denies: Abdominal Pain, Vomiting, Diarrhea PD PAST MEDICAL HISTORY - Past Medical History Cardiovascular: None Respiratory: None Neuro: None Endocrine/Autoimmune: Type 2 diabetes, HyPOthyroidism GI: None RADIO PERSONALITY: None : None HEENT: None Psych: Anxiety, ADD/ADHD Musculoskeletal: Chronic back pain Derm: None - Past Surgical History Past Surgical History: Yes General: Cholecystectomy - Present Medications Home Medications: Ambulatory Orders Medication Instructions Recorded Confirmed Dextroamphetamine/Amphetamine 15 mg PO DAILY PM 03/05/19 10/15/22 [Adderall 15 mg Tablet] Gabapentin 800 mg PO TID 03/05/19 10/15/22 Levothyroxine Sodium [Synthroid] 88 mcg PO DAILY 03/05/19 10/15/22 Albuterol Sulf [Ventolin Hfa 1 - 2 puffs INH Q4HR PRN #1 each 05/18/22 10/15/22 Inhaler] Dextroamphetamine/Amphetamine 30 mg PO DAILY 07/06/22 10/15/22 [Adderall 30 mg Tablet] Esomeprazole Magnesium [Nexium 40 mg PO DAILY 10/15/22 10/15/22 24Hr] Ondansetron Odt [Zofran Odt] 4 mg TL Q6H PRN 10/15/22 10/15/22 Ondansetron Odt [Zofran] 4 mg TL Q6H PRN #20 tablet 10/15/22 Promethazine Supp [Phenergan Supp] 25 mg TN Q6H PRN #10 supp 10/15/22 oxyCODONE [Roxicodone] 5 mg PO Q4-6H PRN 10/15/22 10/15/22 oxyCODONE [Roxicodone] 5 mg PO Q6H PRN #20 tablet 10/15/22 polyethylene glycoL 3350(BULK) 17 gm PO DAILY PRN #1 each 10/15/22 [Miralax] - Allergies Allergies/Adverse Reactions: Allergies Allergy/AdvReac Type Severity Reaction Status Date / Time hydrocodone bitartrate * Allergy Intermediate Rash Verified 10/15/22 10:37 [From Vicodin] ketorolac tromethamine * Allergy Intermediate Rash Verified 10/15/22 10:37 [From Toradol] Penicillins Allergy Intermediate Rash Verified 10/15/22 10:37 shellfish derived Allergy Intermediate Rash Verified 10/15/22 10:37 Tetracyclic Antidepressants Allergy Intermediate Hallucinati Verified 10/15/22 10:37 ons tramadol Allergy Intermediate Rash Verified 10/15/22 10:37 erythromycin base Allergy Unknown Verified 10/15/22 11:52 [From Erythrocin] milk Allergy Cramps Verified 10/15/22 10:37 whey Allergy Cramps Verified 10/15/22 10:37 hydromorphone AdvReac Severe Emesis Verified 10/15/22 10:37 prednisone AdvReac Severe Anxiety Verified 10/15/22 10:37 ibuprofen AdvReac Intermediate Bloody Verified 10/15/22 10:37 Stools baking soda AdvReac Mild Rash Uncoded 07/06/22 17:48 epsin salt AdvReac Mild Rash Uncoded 07/06/22 17:48 - Social History Does the pt smoke?: No Smoking Status: Never smoker Does the pt drink ETOH?: No Does the pt have substance abuse?: No - Immunizations Immunizations are current?: Yes - POLST Patient has POLST: No PD ED PE NORMAL - Vitals Vital signs reviewed: Yes - General General: Alert and oriented X 3, No acute distress, Well developed/nourished - HEENT HEENT: PERRL, EOMI (nonicteric) - Neck Neck: Supple, no meningeal sign, No adenopathy - Cardiac Cardiac: RRR, No murmur, No rub - Respiratory Respiratory: Clear bilaterally - Abdomen Abdomen: Normal bowel sounds, Soft, Other (no percussion nor rebound tenderness. ) - Female Female : Deferred - Derm Derm: Normal color, Warm and dry - Extremities Extremities: No edema, No calf tenderness / cord - Neuro Neuro: Alert and oriented X 3, No motor deficit, No sensory deficit, Normal speech Eye Opening: Spontaneous Motor: Obeys Commands Verbal: Oriented GCS Score: 15 Results - Vitals Vitals: Vital Signs - 24 hr 10/15/22 10/15/22 10/15/22 10:37 12:00 12:44 Temperature 36.3 C L Heart Rate 79 57 L 66 Respiratory 18 16 16 Rate Blood Pressure 138/82 H 123/81 H 141/82 H O2 Saturation 100 100 100 Oxygen O2 Source Room air - Labs Labs: Laboratory Tests 10/15/22 10/15/22 10:55 10:55 WBC 9.5 RBC 4.84 Hgb 13.6 Hct 41.3 MCV 85.3 MCH 28.1 MCHC 32.9 RDW 13.9 Plt Count 365 MPV 9.3 Neut # (Auto) 6.5 Lymph # (Auto) 2.4 [place] # (Auto) 0.4 Eos # (Auto) 0.1 Baso # (Auto) 0.1 Absolute Nucleated RBC 0.00 Nucleated RBC % 0.0 Sodium 139 Potassium 3.7 Chloride 108 Carbon Dioxide 24 Anion Gap 7.0 BUN 15 Creatinine 0.7 Estimated GFR (MDRD) 91 Glucose 87 Calcium 9.0 Total Bilirubin 0.8 AST 14 ALT 13 Alkaline Phosphatase 58 Total Protein 7.2 Albumin 4.2 Globulin 3.0 Albumin/Globulin Ratio 1.4 Lipase 30 PD Medical Decision Making - ED course Complexity details: reviewed results, considered differential, d/w patient ED course: she is having mid to upper abd pain. No diarrhea. s/p gastric sleeve surgery and is concerned about process related to that. She did have some time in waiting room due to ED volume. She is seen and given some IV fluids/meds. Had labs done in waiting room. She has to get her spouse to court by 1 pm, so time limited in ER. We were able to get CT done in time for her to discharge and get to where she needs to be. Initial view from me was no obvious notable findings. Radiology says possible mild colon wall thickening versus underdistension. Some mesenteric nodes. No other acute process. Her pain and onset of suymptoms would be more likely seeming a viral illness with the nodes. No history of diverticulitis/etc. She had discharged with scripts. Given her gastric sleeve, she is not to be taking NSAIDs anyway. So will treat symptoms and see how improves over 1-2 days. Will have nursing contact and update pt to presume viral for now with mesentericd nodes. Departure - Departure Disposition: Home, Self Care Clinical Impression: Generalized abdominal pain, S/P gastric sleeve procedure, Mesenteric adenitis Condition: Stable Record reviewed to determine appropriate education?: Yes Instructions: ED Abdominal Pain Female Non-Specific Abdominal Pain Prescriptions: polyethylene glycoL 3350(BULK) [Miralax] 17 gm PO DAILY PRN #1 each PRN Reason: Constipation Promethazine Supp [Phenergan Supp] 25 mg TN Q6H PRN #10 supp PRN Reason: Nausea / Vomiting oxyCODONE [Roxicodone] 5 mg PO Q6H PRN #20 tablet PRN Reason: Pain Ondansetron Odt [Zofran] 4 mg TL Q6H PRN #20 tablet PRN Reason: Nausea / Vomiting Comments: I understand that you need to go for obvious reasons. At this point your CT scan does not show any obvious significant process to my eye. The radiology report will come in the next hour or so most likely. We can call you if there is any more significant process. It does look like some globulin of stool through part of the intestine and this may be causing some back pressure nor cramping. No signs of bowel obstruction or such. At this point continue with your usual medications. Resume the esomeprazole as you have. Tylenol every 4-6 hours if needed for pains and oxycodone every 6 hours if needed for worse pain. Ondansetron or Phenergan if needed for nausea. I would suggest some MiraLAX dosing every 1-2 hours today until some stool output and then revert to just once daily over the next week or 2. Recheck if not improving well through the day. I sent your prescriptions to your preferred pharmacy. Discharge Date/Time: 10/15/22 12:46
[2022-10-15 11:26] LABS: BASOPHILS # (AUTO) 0.1 10^3/uL (0.0-0.1); BASOPHILS % (AUTO) 0.5 %; EOSINOPHILS # (AUTO) 0.1 10^3/uL (0.0-0.7); EOSINOPHILS % (AUTO) 1.4 %; HCT - HEMATOCRIT 41.3 % (37.0-47.0); HGB - HEMOGLOBIN 13.6 g/dL (12.0-16.0); LYMPHOCYTES # (AUTO) 2.4 10^3/uL (1.5-3.5); LYMPHOCYTES % (AUTO) 25.1 %; MEAN CORPUSCULAR HEMOGLOBIN 28.1 pg (27.0-31.0); MEAN CORPUSCULAR HGB CONC 32.9 g/dL (32.0-36.0); MEAN CORPUSCULAR VOLUME 85.3 fL (81.0-99.0); MEAN PLATELET VOLUME 9.3 fL (7.9-10.8); MONOCYTES # (AUTO) 0.4 10^3/uL (0.0-1.0); MONOCYTES % (AUTO) 4.6 %; NEUTROPHILS # (AUTO) 6.5 10^3/uL (1.5-6.6); NEUTROPHILS % (AUTO) 68.2 %; PLT - PLATELET COUNT 365 10^3/uL (130-450); RED BLOOD COUNT 4.84 10^6/uL (4.20-5.40); RED CELL DISTRIBUTION WIDTH 13.9 % (12.0-15.0); WHITE BLOOD COUNT 9.5 x10^3/uL (4.8-10.8)
[2022-10-15] MEDS ORDERED: SODIUM CHLORIDE 0.9% 1,000 ML IV STA (11:35)
[2022-10-15] MEDS ORDERED: HYDROmorphone 1 MG/ML CARPUJECT IVP STA (11:35)
[2022-10-15] MEDS ORDERED: ONDANSETRON 4 MG/2 ML VIAL IVP STA (11:35)
[2022-10-15] MEDS ORDERED: FAMOTIDINE 20 MG/2 ML VIAL IVP STA (11:35)
[2022-10-15] MEDS ORDERED: MAG HYDROX/AL HYDROX/SIMETH 30 ML UDC PO STA (11:37)
[2022-10-15] MEDS ORDERED: LIDOCAINE VISCOUS 2% 15 ML ORAL SYRINGE MM STA (11:37)
[2022-10-15 11:58] LABS: POTASSIUM 3.7 mmol/L (3.5-5.0)
[2022-10-15 11:59] LABS: ALBUMIN 4.2 g/dL (3.2-5.5); ALBUMIN/GLOBULIN RATIO 1.4 (1.0-2.2); BILIRUBIN,TOTAL 0.8 mg/dL (0.2-1.0); CREATININE 0.7 mg/dL (0.4-1.0); TOTAL PROTEIN 7.2 g/dL (6.7-8.2)
[2022-10-15] MEDS ORDERED: iohexoL-300 100 ML VIAL ONE (12:19)
[2022-10-15] MEDS ORDERED: fentaNYL 100 MCG/2 ML VIAL IVP STA (12:22)
[2022-10-15 12:47] VITALS: BP 141/82
--- NOTE | 2022-10-15 13:26 | CT Report ---
PROCEDURE: ABDOMEN/PELVIS W INDICATIONS: mid to upper abd pain since yest CONTRAST: 100ml Omnipaque 300 TECHNIQUE: After the administration of IV contrast, 5 mm thick sections acquired from the diaphragms to the symp hysis. 5 mm thick coronal and sagittal reformats were acquired. For radiation dose reduction, the f ollowing was used: automated exposure control, adjustment of mA and/or kV according to patient size. COMPARISON: 11/19/2009 FINDINGS: Image quality: Excellent. Lung bases and heart: Unremarkable. Liver: There is hepatomegaly. 2 well-circumscribed hypodense areas are noted in left and right hepati c lobes and measures up to 3.5 x 4 cm in size in right hepatic dome and 1.5 x 1.6 cm in size in left hepatic lobe. These were also noted in 2010 study and are not significantly changed. Gallbladder and biliary tree: Gallbladder is surgically absent. No gross biliary ductal dilatation. Spleen: No splenomegaly. Pancreas: No pancreatic ductal dilation. Adrenals: No adrenal nodule. Kidneys and ureters: No hydronephrosis. No renal cystic lesion which requires follow up. No solid mas s. Bowel and peritoneum: There is no bowel obstruction. Postsurgical changes are seen in stomach from pr ior gastric bypass surgery. No gross gastric or small bowel wall thickening. Mild fecal stasis in the ascending colon and transverse colon is seen. Questionable wall thickening involving distal descendi ng colon and sigmoid colon without significant mesenteric fat stranding. No abscess collection. No ev idence of acute appendicitis. No free fluid of free air. Lymph nodes: No retroperitoneal lymphadenopathy..Multiple mildly prominent right-sided mesenteric lym ph nodes are seen measures up to 7 mm in size. Vessels: No infrarenal aortic aneurysm. PELVIS Reproductive organs: Unremarkable. Bladder: No abnormal wall thickening, accounting for underdistension. Pelvic lymph nodes: No pelvic adenopathy by size criteria. Bones: No aggressive osseous abnormality. Other: No significant ventral or inguinal hernia. IMPRESSION: 1. Finding may represent very low-grade distal descending colon and sigmoid colitis versus under dist ention. No evidence of acute appendicitis or diverticulitis. No abscess collection. No free fluid of free air. 2. Mildly prominent right mesenteric lymph nodes which can be seen associated with mesenteric adeniti s. 3. Well-circumscribed hypodense areas involving right and left hepatic lobes which were also describe d in prior study from 2009 and may represent benign process. Hepatomegaly. 4. Post surgical changes from prior gastric bypass surgery. No evidence of bowel obstruction. No othe r area of abnormal bowel wall thickening. Reviewed by: Sony Arredondo MD on 10/15/2022 12:25 PM [facility] Approved by: Sony Arredondo MD on 10/15/2022 12:25 PM [facility] Station ID: [id number]
[2022-10-15] MEDS ORDERED: iohexoL-300 100 ML VIAL IVP ONE (14:48)
== END 2022-10-15 12:46 | disposition home or self-care (01) ==
LOC: ED 10:33
DX: R10.84 Generalized abdominal pain (principal); I88.0 Nonspecific mesenteric lymphadenitis; E11.9 Type 2 diabetes mellitus without complications; E03.9 Hypothyroidism, unspecified; Z98.84 Bariatric surgery status
CPT/HCPCS: 36415; 74177; 80053; 83690; 85025; 96374; 96375; 99284; A9270; Q9967

== ENCOUNTER 2022-11-11 08:30 | Outpatient (CLI) | payer MEDICAID | END 2022-11-11 08:31 | disposition critical access hospital (66) | LOC: EMS 08:30 | DX: R10.12 Left upper quadrant pain (principal); R10.11 Right upper quadrant pain; Z98.84 Bariatric surgery status | CPT/HCPCS: A0425; A0429; A0999 ==

== ENCOUNTER 2022-11-11 08:54 | Emergency (ER) | payer MEDICAID ==
[2022-11-11] MEDS ORDERED: MORPHINE 10 MG/ML VIAL IVP STA ×2 (09:14→09:54)
[2022-11-11] MEDS ORDERED: ONDANSETRON 4 MG/2 ML VIAL IVP STA (09:15)
[2022-11-11 09:31] LABS: BASOPHILS # (AUTO) 0.1 10^3/uL (0.0-0.1); BASOPHILS % (AUTO) 0.6 %; EOSINOPHILS # (AUTO) 0.1 10^3/uL (0.0-0.7); HCT - HEMATOCRIT 39.4 % (37.0-47.0); LYMPHOCYTES # (AUTO) 1.3 10^3/uL (1.5-3.5); LYMPHOCYTES % (AUTO) 12.7 %; MEAN CORPUSCULAR HEMOGLOBIN 28.1 pg (27.0-31.0); MEAN CORPUSCULAR VOLUME 85.1 fL (81.0-99.0); MEAN PLATELET VOLUME 9.4 fL (7.9-10.8); MONOCYTES # (AUTO) 0.5 10^3/uL (0.0-1.0); MONOCYTES % (AUTO) 4.7 %; NEUTROPHILS # (AUTO) 8.5 10^3/uL (1.5-6.6); NEUTROPHILS % (AUTO) 80.6 %; PLT - PLATELET COUNT 318 10^3/uL (130-450); RED BLOOD COUNT 4.63 10^6/uL (4.20-5.40); RED CELL DISTRIBUTION WIDTH 14.2 % (12.0-15.0); WHITE BLOOD COUNT 10.5 x10^3/uL (4.8-10.8)
[2022-11-11 09:53] LABS: ALBUMIN 3.7 g/dL (3.2-5.5); ALBUMIN/GLOBULIN RATIO 1.2 (1.0-2.2); BILIRUBIN,TOTAL 0.8 mg/dL (0.2-1.0); CALCIUM 8.5 mg/dL (8.5-10.3); CREATININE 0.7 mg/dL (0.4-1.0); TOTAL PROTEIN 6.7 g/dL (6.7-8.2)
[2022-11-11] MEDS ORDERED: iohexoL-300 100 ML VIAL ONE (09:56)
[2022-11-11 10:07] LABS: HCG,QUALITATIVE BLOOD NEGATIVE
--- NOTE | 2022-11-11 10:44 | ED Physician Documentation ---
PD HPI ABD PAIN - Stated complaint Stated Complaint: RLQ PX - Chief complaint Chief Complaint: Abd Pain - History obtained from History obtained from: Patient - History of Present Illness Timing - onset: How many days ago (2) Timing - duration: Days (2) Timing - details: Gradual onset, Still present Quality: Sharp, Pain Location: RLQ Radiation: Lower back Improved by: Laying still Worsened by: Moving, Position, Palpation Associated symptoms: No: Nausea, Vomiting, Diarrhea, Constipation Similar symptoms before: Has not had sx before Recently seen: Emergency Dept - Additional information Additional information: 42-year-old Luanne Phillips has had a gastric sleeve placed and she has developed some abdominal pain yesterday that has localized to the right lower quadrant and is severe. She has pain with any movement. She has not eaten today. She was able to eat yesterday. She has not had a fever. She denies any diarrhea or constipation. She has had abdominal pain and was seen in the emergency department last month and diagnosed with mesenteric adenitis. The patient had her menses began yesterday she is emphatic that she is not as her has had a vasectomy. She has not had problems previously with ovarian cyst. Review of Systems Constitutional: denies: Fever Eyes: denies: Decreased vision Ears: denies: Ear pain Nose: denies: Congestion Throat: denies: Sore throat Cardiac: denies: Chest pain / pressure, Palpitations Respiratory: denies: Dyspnea, Cough GI: reports: Abdominal Pain : denies: Dysuria, Frequency Skin: denies: Rash Musculoskeletal: denies: Neck pain, Back pain, Extremity pain Neurologic: denies: Generalized weakness, Focal weakness, Numbness PD PAST MEDICAL HISTORY - Past Medical History Past Medical History: Yes Cardiovascular: None Respiratory: None Neuro: None Endocrine/Autoimmune: Type 2 diabetes, HyPOthyroidism GI: Other HUMAN RESOURCES COMPLIANCE MANAGER: None : None HEENT: None Psych: Anxiety, ADD/ADHD Musculoskeletal: Chronic back pain Derm: None - Past Surgical History Past Surgical History: Yes General: Cholecystectomy - Present Medications Home Medications: Ambulatory Orders Medication Instructions Recorded Confirmed Dextroamphetamine/Amphetamine 15 mg PO DAILY PM 03/05/19 11/11/22 [Adderall 15 mg Tablet] Gabapentin 800 mg PO TID 03/05/19 11/11/22 Levothyroxine Sodium [Synthroid] 88 mcg PO DAILY 03/05/19 11/11/22 Albuterol Sulf [Ventolin Hfa 1 - 2 puffs INH Q4HR PRN #1 each 05/18/22 11/11/22 Inhaler] Dextroamphetamine/Amphetamine 30 mg PO DAILY 07/06/22 11/11/22 [Adderall 30 mg Tablet] Esomeprazole Magnesium [Nexium 40 mg PO DAILY 10/15/22 11/11/22 24Hr] Ondansetron Odt [Zofran] 4 mg TL Q6H PRN #20 tablet 10/15/22 11/11/22 Promethazine Supp [Phenergan Supp] 25 mg CO Q6H PRN #10 supp 10/15/22 11/11/22 oxyCODONE [Roxicodone] 5 mg PO Q4-6H PRN 10/15/22 11/11/22 polyethylene glycoL 3350(BULK) 17 gm PO DAILY PRN #1 each 10/15/22 11/11/22 [Miralax] Ondansetron Odt [Zofran] 4 mg TL Q6H PRN #10 tablet 11/11/22 - Allergies Allergies/Adverse Reactions: Allergies Allergy/AdvReac Type Severity Reaction Status Date / Time hydrocodone bitartrate * Allergy Intermediate Rash Verified 10/15/22 10:37 [From Vicodin] ketorolac tromethamine * Allergy Intermediate Rash Verified 10/15/22 10:37 [From Toradol] Penicillins Allergy Intermediate Rash Verified 10/15/22 10:37 shellfish derived Allergy Intermediate Rash Verified 10/15/22 10:37 Tetracyclic Antidepressants Allergy Intermediate Hallucinati Verified 10/15/22 10:37 ons tramadol Allergy Intermediate Rash Verified 10/15/22 10:37 magnesium sulfate Allergy Mild Rash Verified 11/11/22 09:57 [From Epsom Salt] erythromycin base Allergy Unknown Verified 10/15/22 11:52 [From Erythrocin] milk Allergy Cramps Verified 10/15/22 10:37 whey Allergy Cramps Verified 10/15/22 10:37 hydromorphone AdvReac Severe Emesis Verified 10/15/22 10:37 prednisone AdvReac Severe Anxiety Verified 10/15/22 10:37 ibuprofen AdvReac Intermediate Bloody Verified 10/15/22 10:37 Stools sodium bicarbonate AdvReac Mild Rash Verified 11/11/22 09:57 - Social History Does the pt smoke?: No Smoking Status: Never smoker Does the pt drink ETOH?: No Does the pt have substance abuse?: No - Immunizations Immunizations are current?: Yes - POLST Patient has POLST: No PD ED PE NORMAL - Vitals Vital signs reviewed: Yes (wide pulse pressure) - General General: Alert and oriented X 3, Well developed/nourished, Other (.42-year-old female writhing in the bed clutching her right lower quadrant she appears uncomfortable.) - HEENT HEENT: Atraumatic, PERRL, EOMI - Neck Neck: Supple, no meningeal sign, No bony TTP - Cardiac Cardiac: RRR, No murmur - Respiratory Respiratory: No respiratory distress, Clear bilaterally - Abdomen Abdomen: Soft, Other (3-1/2-year-old Juan Ramon Santana 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 He has developed small blisters to his hands and around his mouth as well as his lower extremities. He does not have huitron on his feet. 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, No motor deficit, No sensory deficit, Normal speech Eye Opening: Spontaneous Motor: Obeys Commands Verbal: Oriented GCS Score: 15 - Psych Psych: Normal mood, Normal affect Results - Vitals Vitals: Vital Signs - 24 hr 11/11/22 11/11/22 11/11/22 09:09 09:31 09:52 Temperature 36.6 C Heart Rate 70 75 81 Respiratory 24 14 14 Rate Blood Pressure 134/46 H 141/65 H 120/61 O2 Saturation 100 100 97 11/11/22 11/11/22 11/11/22 11:17 12:00 13:00 Temperature Heart Rate 79 87 77 Respiratory 20 24 Rate Blood Pressure 121/70 128/72 125/64 O2 Saturation 98 100 100 Oxygen O2 Source Room air - Labs Labs: Laboratory Tests 11/11/22 11/11/22 11/11/22 09:25 09:25 09:25 WBC 10.5 RBC 4.63 Hgb 13.0 Hct 39.4 MCV 85.1 MCH 28.1 MCHC 33.0 RDW 14.2 Plt Count 318 MPV 9.4 Neut # (Auto) 8.5 H Lymph # (Auto) 1.3 L [place] # (Auto) 0.5 Eos # (Auto) 0.1 Baso # (Auto) 0.1 Absolute Nucleated RBC 0.00 Nucleated RBC % 0.0 ESR Sodium 137 Potassium 4.0 Chloride 105 Carbon Dioxide 24 Anion Gap 8.0 BUN 14 Creatinine 0.7 Estimated GFR (MDRD) 91 Glucose 95 Calcium 8.5 Total Bilirubin 0.8 AST 16 ALT 13 Alkaline Phosphatase 49 C-Reactive Protein Total Protein 6.7 Albumin 3.7 Globulin 3.0 Albumin/Globulin Ratio 1.2 Lipase 24 Serum HCG, Qual NEGATIVE Urine Color Urine Clarity Urine pH Ur Specific [place] Urine Protein Urine Glucose (UA) Urine Ketones Urine Occult Blood Urine Nitrite Urine Bilirubin Urine Urobilinogen Ur Leukocyte Esterase Urine RBC Urine WBC Ur Squamous Epith Cells Urine Bacteria Ur Microscopic Review Urine Culture Comments 11/11/22 11/11/22 11/11/22 11:44 12:29 12:29 WBC RBC Hgb Hct MCV MCH MCHC RDW Plt Count MPV Neut # (Auto) Lymph # (Auto) [place] # (Auto) Eos # (Auto) Baso # (Auto) Absolute Nucleated RBC Nucleated RBC % ESR 6 Sodium Potassium Chloride Carbon Dioxide Anion Gap BUN Creatinine Estimated GFR (MDRD) Glucose Calcium Total Bilirubin AST ALT Alkaline Phosphatase C-Reactive Protein 9.5 H Total Protein Albumin Globulin Albumin/Globulin Ratio Lipase Serum HCG, Qual Urine Color YELLOW Urine Clarity CLEAR Urine pH 5.5 Ur Specific [place] 1.015 Urine Protein NEGATIVE Urine Glucose (UA) NEGATIVE Urine Ketones 15 H Urine Occult Blood MODERATE H Urine Nitrite NEGATIVE Urine Bilirubin NEGATIVE Urine Urobilinogen 0.2 (NORMAL) Ur Leukocyte Esterase NEGATIVE Urine RBC 0-5 Urine WBC 0-3 Ur Squamous Epith Cells RARE Squamous Urine Bacteria Rare Ur Microscopic Review INDICATED Urine Culture Comments NOT INDICATED - Rads (name of study) CT ab pel Relevant Findings:: Prelim report reviewed (Impression: 1. Periapical inflammation amatory change with free fluid. No organized abscess. There is distal ileal wall thickening possible inflammatory change and normal-appearing appendix, favoring terminal ileitis. Consider short-term interval follow-up.), EMP independent interpretation of test PD Medical Decision Making - ED course Complexity details: reviewed results, re-evaluated patient, considered differential, d/w patient Reviewed Lab Results: We reviewed a complete blood cell count with a normal white blood cell count normal hemoglobin hematocrit and platelets. Sedimentation rate was normal at 6 chemistries were unremarkable normal electrolytes normal kidney and liver function. normal lipase. A C-reactive protein is elevated at 9.5. TWe did do a CT of the abdomen and pelvis with contrast and found evidence of inflammation in the terminal ileum with a normal-appearing appendix. My interpretation of these results are a relatively benign process despite the dramatic pain. The elevation in the CT reactive protein is concerning for the possibility of Crohn's disease or ileitis. ED course: 42-year-old female with the second episode of abdominal pain and 1 month presents with right lower quadrant abdominal pain and examination that is consistent with the possibility of appendicitis. A CT scan done shows evidence of inflammation to the terminal ileum and she has an elevated C-reactive protein. She does not have elevated white count she has normal blood counts normal electrolytes and what appears to be otherwise a benign process. She did have significant and dramatic pain required treatment with morphine which did not help. She eventually got some Tylenol which did help. I asked our surgeon Dr. Norman to weigh in on the patient's case and he came to the emergency department evaluated the patient and recommended the patient have a repeat scan and does not done as an outpatient if she has worsening of her symptoms and he recommended follow-up with GI for scoping to the terminal ileum. Departure - Departure Disposition: 01 Home, Self Care Clinical Impression: Constipation Qualifiers: Constipation type: unspecified constipation type Qualified Code(s): K59.00 - Constipation, unspecified Abdominal pain Qualifiers: Abdominal location: right lower quadrant Qualified Code(s): R10.31 - Right lower quadrant pain Condition: Stable Instructions: ED Constipation, ED Abdominal Pain Female Non-Specific Abdominal Pain Follow-Up: Pako Rockwell MD [Provider Admit Priv/Credential] - Prescriptions: Ondansetron Odt [Zofran] 4 mg TL Q6H PRN #10 tablet PRN Reason: Nausea / Vomiting Comments: Luanne, today it looks like there is some inflammation in the terminal ileum which is a structure right next to the appendix. The appendix did look normal. This inflammation may be related to Crohn's disease. Usually there is a lot of diarrhea associated with Crohn's. We did note on the CAT scan that you are significantly constipated. My recommendation for this constipation is to use some milk of magnesia until you are cleaned out and then use a regular dose of MiraLAX to retrain your colon. If you have worsening of this pain or develop a fever and vomiting return to the emergency department for a second CAT scan. The recommendation for follow-up is to see Dr. Pako Rockwell for referral to gastroenterology for further work-up as needed.I have E scribed some Zofran to the [employer] [facility] in [place].
--- NOTE | 2022-11-11 11:24 | CT Report ---
PROCEDURE: CT abdomen pelvis with contrast INDICATIONS: RLQ pain CONTRAST: 100ml Omnipaque 300 TECHNIQUE: After the administration of contrast, 5 mm thick sections acquired from the diaphragms to the symphys is. 5 mm thick coronal and sagittal reformats were acquired. For radiation dose reduction, the foll owing was used: automated exposure control, adjustment of mA and/or kV according to patient size. COMPARISON: FINDINGS: Image quality: Excellent. Lung bases and heart: Unremarkable. Liver: Hepatic mass lesion measures 4.1 cm in length distal smaller left hepatic cyst present.. Focal hepatic fatty infiltration noted adjacent to the falciform ligament Gallbladder and biliary tree: Cholecystectomy Spleen: No splenomegaly. Pancreas: No pancreatic ductal dilation. Adrenals: No adrenal nodule. Kidneys and ureters: No hydronephrosis. No renal cystic lesion which requires follow up. No solid mas s. Bowel and peritoneum: Although a normal appendix is identified on the images 24 through 27 of series 6, there is pericecal inflammatory change and free fluid in the right pericolic gutter. Mild wall thi ckening of the distal ileum present as well. Adjacent loop of small bowel is also fluid distended wal l enhancement. No evidence of abscess. Otherwise, prior gastric surgery noted. Lymph nodes: No central or retroperitoneal adenopathy. Vessels: No infrarenal aortic aneurysm. PELVIS Reproductive organs: Right adnexal cyst measures 3.4 cm Bladder: No abnormal wall thickening, accounting for underdistension. Pelvic lymph nodes: No pelvic adenopathy by size criteria. Bones: No aggressive osseous abnormality. Other: No significant ventral or inguinal hernia. IMPRESSION: 1. Pericecal inflammatory change with free fluid. No organized abscess.. There is distal ileal wall t hickening possible inflammatory change and a normal appearing appendix, favoring terminal ileitis. Co nsider short-term interval follow-up. Reviewed by: Abelardo Khan MD on 11/11/2022 10:22 AM EVGENY Approved by: Abelardo Khan MD on 11/11/2022 10:22 AM EVGENY Station ID: [id number]
[2022-11-11 11:52] LABS: BILIRUBIN,URINE NEGATIVE (NEGATIVE); GLUCOSE, URINE (UA) NEGATIVE (NEGATIVE); KETONES,URINE (UA) 15 mg/dL (NEGATIVE); LEUKOCYTE ESTERASE, URINE NEGATIVE (NEGATIVE); NITRITE,URINE NEGATIVE (NEGATIVE); OCCULT BLOOD,URINE MODERATE (NEGATIVE); PH,URINE 5.5 PH (5.0-7.5); PROTEIN,URINE NEGATIVE (NEGATIVE); UROBILINOGEN,URINE 0.2 (NORMAL) E.U./dL (NORMAL)
[2022-11-11 12:00] LABS: CLARITY,URINE CLEAR (CLEAR)
[2022-11-11 12:01] LABS: BACTERIA,URINE Rare /HPF (None Seen); RBC,URINE 0-5 /HPF (0-5); SQUAMOUS EPITHELIAL CELL,UR RARE Squamous (<= Few); WBC,URINE 0-3 /HPF (0-5)
[2022-11-11] MEDS ORDERED: ACETAMINOPHEN 325 MG TABLET PO STA (12:03)
--- NOTE | 2022-11-11 13:42 | CONSULTATION NOTE ---
Referring Provider Consult Date: 11/11/22 Chief Complaint - Chief Complaint Chief Complaint: right lower quadrant pain History of Present Illness - History Obtained From Records Reviewed: yes History obtained from: pt Exam Limitations: none - History of Present Illness HPI Comment/Other: history right lower quadrant pain 3 weeks ago. she states at that time her whole family had similar symptoms. she was seen and had a ct scan. IMPRESSION: 1. Finding may represent very low-grade distal descending colon and sigmoid colitis versus under distention. No evidence of acute appendicitis or diverticulitis. No abscess collection. No free fluid of free air. 2. Mildly prominent right mesenteric lymph nodes which can be seen associated with mesenteric adenitis. 3. Well-circumscribed hypodense areas involving right and left hepatic lobes which were also described in prior study from 2010 and may represent benign process. Hepatomegaly. 4. Post surgical changes from prior gastric bypass surgery. No evidence of bowel obstruction. No other area of abnormal bowel wall thickening. Reviewed by: Sony Arredondo MD on 10/15/2022 12:25 PM AKDT Approved by: Sony Arredondo MD on 10/15/2022 12:25 PM AKDT she improved over a couple weeks. for the last couple days she has had waves of severe right lower quadrant pain. she denies change in bowel habits, bloody or mucous stool, bloating. no family history of inflammatory bowel disease. she states about 10 years ago she had more mild but similar symptoms and was diagnosed with mesenteric adenitis ct today IMPRESSION: 1. Pericecal inflammatory change with free fluid. No organized abscess.. There is distal ileal wall thickening possible inflammatory change and a normal appearing appendix, favoring terminal ileitis. Consider short-term interval follow-up. Reviewed by: Abelardo Khan MD on 11/11/2022 10:22 AM AKDT Approved by: Abelardo Khan MD on 11/11/2022 10:22 AM AKDT History - Past Medical History Cardiovascular: reports: None Respiratory: reports: None Neuro: reports: None Endocrine/Autoimmune: reports: Type 2 diabetes, HyPOthyroidism GI: reports: Other DIRECTOR OF MATERIALS: reports: None : reports: None HEENT: reports: None Psych: reports: Anxiety, ADD/ADHD Musculoskeletal: reports: Chronic back pain Derm: reports: None MRSA Hx?: Yes - Past Surgical History General: reports: Cholecystectomy - POLST Patient has POLST: No Meds/Allgy - Home Medications Home Medications: Ambulatory Orders Medication Instructions Recorded Confirmed Dextroamphetamine/Amphetamine 15 mg PO DAILY PM 03/05/19 11/11/22 [Adderall 15 mg Tablet] Gabapentin 800 mg PO TID 03/05/19 11/11/22 Levothyroxine Sodium [Synthroid] 88 mcg PO DAILY 03/05/19 11/11/22 Albuterol Sulf [Ventolin Hfa 1 - 2 puffs INH Q4HR PRN #1 each 05/18/22 11/11/22 Inhaler] Dextroamphetamine/Amphetamine 30 mg PO DAILY 07/06/22 11/11/22 [Adderall 30 mg Tablet] Esomeprazole Magnesium [Nexium 40 mg PO DAILY 10/15/22 11/11/22 24Hr] Ondansetron Odt [Zofran] 4 mg TL Q6H PRN #20 tablet 10/15/22 11/11/22 Promethazine Supp [Phenergan Supp] 25 mg MD Q6H PRN #10 supp 10/15/22 11/11/22 oxyCODONE [Roxicodone] 5 mg PO Q4-6H PRN 10/15/22 11/11/22 polyethylene glycoL 3350(BULK) 17 gm PO DAILY PRN #1 each 10/15/22 11/11/22 [Miralax] - Allergies Allergies/Adverse Reactions: Allergies Allergy/AdvReac Type Severity Reaction Status Date / Time hydrocodone bitartrate * Allergy Intermediate Rash Verified 10/15/22 10:37 [From Vicodin] ketorolac tromethamine * Allergy Intermediate Rash Verified 10/15/22 10:37 [From Toradol] Penicillins Allergy Intermediate Rash Verified 10/15/22 10:37 shellfish derived Allergy Intermediate Rash Verified 10/15/22 10:37 Tetracyclic Antidepressants Allergy Intermediate Hallucinati Verified 10/15/22 10:37 ons tramadol Allergy Intermediate Rash Verified 10/15/22 10:37 magnesium sulfate Allergy Mild Rash Verified 11/11/22 09:57 [From Epsom Salt] erythromycin base Allergy Unknown Verified 10/15/22 11:52 [From Erythrocin] milk Allergy Cramps Verified 10/15/22 10:37 whey Allergy Cramps Verified 10/15/22 10:37 hydromorphone AdvReac Severe Emesis Verified 10/15/22 10:37 prednisone AdvReac Severe Anxiety Verified 10/15/22 10:37 ibuprofen AdvReac Intermediate Bloody Verified 10/15/22 10:37 Stools sodium bicarbonate AdvReac Mild Rash Verified 11/11/22 09:57 Review of Systems - Other Findings Other Findings: 10 pt ros as above otherwise unremarkable Exam - Vital Signs Reviewed Vital Signs: Yes Vital Signs: Vital Signs x48h Temp Pulse Resp BP Pulse Ox 11/11/22 13:00 77 125/64 100 11/11/22 12:00 87 24 128/72 100 11/11/22 11:17 79 20 121/70 98 11/11/22 09:52 81 14 120/61 97 11/11/22 09:31 75 14 141/65 H 100 11/11/22 09:09 36.6 C 70 24 134/46 H 100 - Physical Exam General Appearance: positive: No acute distress, Alert Abdomen: positive: No distention Neurologic/Psychiatric: positive: Oriented x3 Conclusion/Plan - Problem List (1) Abdominal pain Conclusion/Plan: we discussed soft diet and follow up with her primary care provider. I recommend she see a refuge manager for further work up and rule out crohns. if she is not improving recommend follow up ED for repeat ct scan as suggested by radiology. Qualifiers: Abdominal location: lower abdomen, unspecified Qualified Code(s): R10.30 - Lower abdominal pain, unspecified - Lab Results Fish Bones: 11/11/22 09:25 11/11/22 09:25 - Diagnostic Imaging Results Diagnostic Imaging Results: positive: Read independently (normal appendix)
[2022-11-11] MEDS ORDERED: ONDANSETRON ODT 4 MG TABLET TL STA (13:43)
[2022-11-11 14:12] VITALS: BP 119/57
== END 2022-11-11 14:07 | disposition home or self-care (01) ==
LOC: ED 08:54
DX: K59.00 Constipation, unspecified (principal); R10.31 Right lower quadrant pain; E11.9 Type 2 diabetes mellitus without complications; E03.9 Hypothyroidism, unspecified; Z79.899 Other long term (current) drug therapy
CPT/HCPCS: 36415; 74177; 80053; 81001; 83690; 84703; 85025; 85651; 86140; 96374; 96376; 99284; A9270; Q0162; Q9967; 81003; 87086

== ENCOUNTER 2022-11-28 14:11 | Outpatient (CLI) | payer MEDICAID ==
[2022-11-28] MEDS ORDERED: DIATR MEGLU/DIATRIZOATE SODIUM 120 ML BOTTLE ONE (14:26)
[2022-11-28] MEDS ORDERED: iohexoL-300 100 ML VIAL ONE (14:27)
[2022-11-28] MEDS ORDERED: iohexoL-300 100 ML VIAL IVP ONE (15:49)
[2022-11-28] MEDS ORDERED: DIATRIZOATE MEGLU/DIATRIZO SOD 30 ML BOTTLE PO ONE (15:49)
--- NOTE | 2022-11-28 16:06 | CT Report ---
PROCEDURE: ABDOMEN/PELVIS W INDICATIONS: GERD, RIGHT LOWER QUAD PAIN CONTRAST: 100ml omni 300 TECHNIQUE: After the administration of oral and intravenous contrast, 5 mm thick sections acquired from the diap hragms to the symphysis. 5 mm thick coronal and sagittal reformats were acquired. For radiation dos e reduction, the following was used: automated exposure control, adjustment of mA and/or kV accordin g to patient size. COMPARISON: 11/11/2022, ultrasound 08/06/2019 FINDINGS: Image quality: Excellent. Lung bases and heart: Unremarkable. Liver: Stable hypoattenuating liver lesions, probably hemangiomas. Gallbladder and biliary tree: Surgically absent. No biliary dilation, accounting for post-cholecystec sandra state. Spleen: No splenomegaly. Pancreas: No pancreatic ductal dilation. Adrenals: No adrenal nodule. Kidneys and ureters: No hydronephrosis. No renal cystic lesion which requires follow up. No solid mas s. Bowel and peritoneum: No bowel distension. No pathologic free fluid. Normal appendix. Lymph nodes: No central or retroperitoneal adenopathy. Vessels: No infrarenal aortic aneurysm. PELVIS Reproductive organs: Unremarkable. Bladder: No abnormal wall thickening, accounting for underdistension. Pelvic lymph nodes: No pelvic adenopathy by size criteria. Bones: Bilateral sacroiliitis. Other: No significant ventral or inguinal hernia. IMPRESSION: Resolved inflammatory process about the cecum. Normal appendix and terminal ileum on today's exam. Sacroiliitis, which can be associated with inflammatory bowel disease. Reviewed by: Trae Botello on 11/28/2022 4:05 PM PDT Approved by: Trae Botello on 11/28/2022 4:05 PM PDT Station ID: [id number]
== END 2022-11-28 14:12 | disposition home or self-care (01) ==
LOC: DI 14:11
PROVIDERS: ATTEND Internal Medicine
DX: K21.9 Gastro-esophageal reflux disease without esophagitis (principal); M46.1 Sacroiliitis, not elsewhere classified
CPT/HCPCS: 74177; Q9963; Q9967

== ENCOUNTER 2023-01-05 02:23 | Emergency (ER) | payer MEDICAID ==
[2023-01-05 03:10] LABS: BASOPHILS % (AUTO) 0.4 %; EOSINOPHILS # (AUTO) 0.1 10^3/uL (0.0-0.7); EOSINOPHILS % (AUTO) 1.2 %; HCT - HEMATOCRIT 35.3 % (37.0-47.0); HGB - HEMOGLOBIN 11.7 g/dL (12.0-16.0); LYMPHOCYTES # (AUTO) 2.3 10^3/uL (1.5-3.5); LYMPHOCYTES % (AUTO) 24.6 %; MEAN CORPUSCULAR HEMOGLOBIN 28.6 pg (27.0-31.0); MEAN CORPUSCULAR HGB CONC 33.1 g/dL (32.0-36.0); MEAN CORPUSCULAR VOLUME 86.3 fL (81.0-99.0); MEAN PLATELET VOLUME 8.9 fL (7.9-10.8); MONOCYTES # (AUTO) 0.5 10^3/uL (0.0-1.0); MONOCYTES % (AUTO) 5.9 %; NEUTROPHILS # (AUTO) 6.2 10^3/uL (1.5-6.6); NEUTROPHILS % (AUTO) 67.6 %; PLT - PLATELET COUNT 322 10^3/uL (130-450); RED BLOOD COUNT 4.09 10^6/uL (4.20-5.40); RED CELL DISTRIBUTION WIDTH 13.8 % (12.0-15.0); WHITE BLOOD COUNT 9.2 x10^3/uL (4.8-10.8)
[2023-01-05 03:22] LABS: BILIRUBIN,URINE NEGATIVE (NEGATIVE); GLUCOSE, URINE (UA) NEGATIVE (NEGATIVE); KETONES,URINE (UA) NEGATIVE (NEGATIVE); LEUKOCYTE ESTERASE, URINE NEGATIVE (NEGATIVE); NITRITE,URINE NEGATIVE (NEGATIVE); OCCULT BLOOD,URINE MODERATE (NEGATIVE); PROTEIN,URINE NEGATIVE (NEGATIVE); UROBILINOGEN,URINE 0.2 (NORMAL) E.U./dL (NORMAL)
[2023-01-05 03:23] LABS: ALBUMIN 3.8 g/dL (3.2-5.5); ALBUMIN/GLOBULIN RATIO 1.5 (1.0-2.2); BILIRUBIN,TOTAL 0.3 mg/dL (0.2-1.0); CALCIUM 8.8 mg/dL (8.5-10.3); CREATININE 0.8 mg/dL (0.6-1.3); POTASSIUM 3.7 mmol/L (3.5-4.5); TOTAL PROTEIN 6.4 g/dL (6.4-8.9)
[2023-01-05 03:29] LABS: CLARITY,URINE CLEAR (CLEAR); HCG UR QUAL NEGATIVE
[2023-01-05 03:31] LABS: BACTERIA,URINE Rare /HPF (None Seen); CASTS, URINE 0-2 Hyaline Casts /LPF; MUCUS,URINE Few Strands; SQUAMOUS EPITHELIAL CELL,UR FEW Squamous (<= Few); WBC,URINE 0-3 /HPF (0-5)
--- NOTE | 2023-01-05 04:02 | ED Physician Documentation ---
PD HPI ABD PAIN - Stated complaint Stated Complaint: ABD PX - Chief complaint Chief Complaint: Abd Pain - History obtained from History obtained from: Patient - Additional information Additional information: Patient c/o 3-4 days of abdominal pain with nausea, vomiting. Pain is diffuse but predominantly RLQ. Denies constipation, diarrhea; had formed stool this morning. Denies fever. She has had recurrent episodes of similar pain for which she has been evaluated before in this ED without clearly diagnostic results (on one occasion, CT A/P was s/o IBD, while another was s/o mesenteric adenitis). Isidro justin had gastric sleeve procedure earlier this year and she feels her symptoms have worsened in intensity and frequency since then. 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 Review of Systems Constitutional: reports: Reviewed and negative Cardiac: reports: Reviewed and negative Respiratory: reports: Reviewed and negative GI: reports: Abdominal Pain, Nausea, Vomiting. 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 : None HEENT: None Psych: Anxiety, ADD/ADHD Musculoskeletal: Chronic back pain Derm: None - Past Surgical History Past Surgical History: Yes General: Cholecystectomy - Present Medications Home Medications: Ambulatory Orders Medication Instructions Recorded Confirmed Dextroamphetamine/Amphetamine 15 mg PO DAILY PM 03/05/19 01/05/23 [Adderall 15 mg Tablet] Levothyroxine Sodium [Synthroid] 88 mcg PO DAILY 03/05/19 01/05/23 Albuterol Sulf [Ventolin Hfa 1 - 2 puffs INH Q4HR PRN #1 each 05/18/22 01/05/23 Inhaler] Dextroamphetamine/Amphetamine 30 mg PO DAILY 07/06/22 01/05/23 [Adderall 30 mg Tablet] Esomeprazole Magnesium [Nexium 40 mg PO DAILY 10/15/22 01/05/23 24Hr] oxyCODONE [Roxicodone] 10 mg PO Q4-6H PRN 10/15/22 01/05/23 polyethylene glycoL 3350(BULK) 17 gm PO DAILY PRN #1 each 10/15/22 01/05/23 [Miralax] ALPRAZolam [Alprazolam] 0.5 mg PO BID PRN 01/05/23 01/05/23 Acetaminophen [Tylenol] 1,000 mg PO Q6HR PRN 01/05/23 01/05/23 Gabapentin [Neurontin] 800 mg PO TID 01/05/23 01/05/23 Magnesium Hydroxide [Milk of 400 mg PO DAILY 01/05/23 01/05/23 Magnesia] Ondansetron [Ondansetron Odt] 8 mg PO Q6HR PRN 01/05/23 01/05/23 - Allergies Allergies/Adverse Reactions: Allergies Allergy/AdvReac Type Severity Reaction Status Date / Time hydrocodone bitartrate * Allergy Intermediate Rash Verified 01/05/23 03:23 [From Vicodin] ketorolac tromethamine * Allergy Intermediate Rash Verified 01/05/23 03:23 [From Toradol] Penicillins Allergy Intermediate Rash Verified 01/05/23 03:23 shellfish derived Allergy Intermediate Rash Verified 01/05/23 03:23 Tetracyclic Antidepressants Allergy Intermediate Hallucinati Verified 01/05/23 03:23 ons tramadol Allergy Intermediate Rash Verified 01/05/23 03:23 magnesium sulfate Allergy Mild Rash Verified 01/05/23 03:23 [From Epsom Salt] erythromycin base Allergy Unknown Verified 01/05/23 03:23 [From Erythrocin] milk Allergy Cramps Verified 01/05/23 03:23 whey Allergy Cramps Verified 01/05/23 03:23 hydromorphone AdvReac Severe Emesis Verified 01/05/23 03:23 prednisone AdvReac Severe Anxiety Verified 01/05/23 03:23 ibuprofen AdvReac Intermediate Bloody Verified 01/05/23 03:23 Stools sodium bicarbonate AdvReac Mild Rash Verified 01/05/23 03:23 bupropion [From Wellbutrin] AdvReac Headache Verified 01/05/23 03:23 escitalopram [From Lexapro] AdvReac Headache Verified 01/05/23 03:23 fluoxetine [From Prozac] AdvReac Unknown Verified 01/05/23 03:23 lamotrigine [From Lamictal] AdvReac Rash Verified 01/05/23 03:23 paroxetine [From Paxil] AdvReac Headache Verified 01/05/23 03:23 sertraline [From Zoloft] AdvReac Unknown Verified 01/05/23 03:23 - Social History Does the pt smoke?: No Smoking Status: Never smoker Does the pt drink ETOH?: No Does the pt have substance abuse?: No - Immunizations Immunizations are current?: Yes - POLST Patient has POLST: No PD ED PE NORMAL - Vitals Vital signs reviewed: Yes - General General: Alert and oriented X 3, No acute distress, Well developed/nourished - HEENT HEENT: Moist mucous membranes - Neck Neck: Supple, no meningeal sign - Cardiac Cardiac: RRR, No murmur - Respiratory Respiratory: No respiratory distress, Clear bilaterally - Abdomen Abdomen: Normal bowel sounds, Soft, Non distended, Other (TTP periumbical and RLQ without rebound or guarding) - Back Back: No CVA TTP - Derm Derm: Normal color, Warm and dry, No rash Results - Vitals Vitals: Vital Signs - 24 hr 01/05/23 01/05/23 01/05/23 02:40 03:09 05:00 Temperature 98.0 C H Heart Rate 84 73 71 Respiratory 16 16 16 Rate Blood Pressure 164/57 H 142/72 H 152/65 H O2 Saturation 99 100 99 01/05/23 07:09 Temperature Heart Rate 76 Respiratory 14 Rate Blood Pressure 142/79 H O2 Saturation 98 Oxygen O2 Source Room air - Labs Labs: Laboratory Tests 01/05/23 01/05/23 01/05/23 02:49 02:49 03:04 WBC 9.2 RBC 4.09 L Hgb 11.7 L Hct 35.3 L MCV 86.3 MCH 28.6 MCHC 33.1 RDW 13.8 Plt Count 322 MPV 8.9 Neut # (Auto) 6.2 Lymph # (Auto) 2.3 Sauk # (Auto) 0.5 Eos # (Auto) 0.1 Baso # (Auto) 0.0 Absolute Nucleated RBC 0.00 Nucleated RBC % 0.0 Sodium Potassium Chloride Carbon Dioxide Anion Gap BUN Creatinine Estimated GFR (MDRD) Glucose Calcium Total Bilirubin AST ALT Alkaline Phosphatase Total Protein Albumin Globulin Albumin/Globulin Ratio Lipase Urine Color YELLOW Urine Clarity CLEAR Urine pH 7.0 Ur Specific Watson 1.020 Urine Protein NEGATIVE Urine Glucose (UA) NEGATIVE Urine Ketones NEGATIVE Urine Occult Blood MODERATE H Urine Nitrite NEGATIVE Urine Bilirubin NEGATIVE Urine Urobilinogen 0.2 (NORMAL) Ur Leukocyte Esterase NEGATIVE Urine RBC 6-10 H Urine WBC 0-3 Ur Squamous Epith Cells FEW Squamous Urine Bacteria Rare Urine Casts 0-2 Hyaline Casts Urine Mucus Few Strands Ur Microscopic Review INDICATED Urine Culture Comments NOT INDICATED Urine HCG, Qual NEGATIVE 01/05/23 01/05/23 03:04 09:16 WBC 7.5 RBC 4.18 L Hgb 12.0 Hct 36.4 L MCV 87.1 MCH 28.7 MCHC 33.0 RDW 13.8 Plt Count 297 MPV 8.8 Neut # (Auto) 4.4 Lymph # (Auto) 2.3 Sauk # (Auto) 0.5 Eos # (Auto) 0.2 Baso # (Auto) 0.0 Absolute Nucleated RBC 0.00 Nucleated RBC % 0.0 Sodium 136 Potassium 3.7 Chloride 106 Carbon Dioxide 27 Anion Gap 3.0 L BUN 15 Creatinine 0.8 Estimated GFR (MDRD) 78 L Glucose 103 Calcium 8.8 Total Bilirubin 0.3 AST 11 ALT 11 Alkaline Phosphatase 50 Total Protein 6.4 Albumin 3.8 Globulin 2.6 Albumin/Globulin Ratio 1.5 Lipase 17 Urine Color Urine Clarity Urine pH Ur Specific Watson Urine Protein Urine Glucose (UA) Urine Ketones Urine Occult Blood Urine Nitrite Urine Bilirubin Urine Urobilinogen Ur Leukocyte Esterase Urine RBC Urine WBC Ur Squamous Epith Cells Urine Bacteria Urine Casts Urine Mucus Ur Microscopic Review Urine Culture Comments Urine HCG, Qual - Rads (name of study) CT A/P with IV contrast Relevant Findings:: Prelim report reviewed, See rad report PD Medical Decision Making - ED course Complexity details: reviewed old records, reviewed results, re-evaluated patient, considered differential, d/w patient ED course: No concerning nor diagnostic findings on blood tests, UA (hematuria but she is currently menstruating). UHCG negative. She has had three CT A/P over past few months. She says tonight's pain is worse than previous episodes and [facility] This again has findings suggestive of IBD. There is also question of "tubo-ovarian complex" (per radiologist's interpretation) and pelvic US is recommended for further evaluation of this finding. She is given zofran 8mg IV and 4mg IV morphine sulfate. On reevaluation, I reviewed results with patient. She is sleeping, awakens to verbal stimuli but only when combined with gentle tactile stimulus. She says she feels mild improvement in symptoms. Based on CT reading, I am ordering pelvic US. At end of my shift, this study is pending and thus care of patient is turned over to oncoming ED physician (Dr. Hale) Departure - Departure Forms: PCP List
[2023-01-05] MEDS ORDERED: ONDANSETRON 4 MG/2 ML VIAL IVP STA (04:30)
[2023-01-05] MEDS ORDERED: MORPHINE 2 MG/ML CARPUJECT IVP STA (04:30)
[2023-01-05] MEDS ORDERED: iohexoL-300 100 ML VIAL IVP ONE (06:25)
[2023-01-05] MEDS ORDERED: DROPERIDOL 5 MG/2 ML VIAL IVP STA (08:17)
[2023-01-05] MEDS ORDERED: diphenhydrAMINE INJ 50 MG/ML VIAL IVP STA (08:17)
--- NOTE | 2023-01-05 09:07 | CT Report ---
PROCEDURE: ABDOMEN/PELVIS W INDICATIONS: abdominal pain CONTRAST: 100 ML OMNI 300 TECHNIQUE: After the administration of IV and oral contrast, 5 mm thick sections acquired from the diaphragms to the symphysis. 5 mm thick coronal and sagittal reformats were acquired. For radiation dose reducti on, the following was used: automated exposure control, adjustment of mA and/or kV according to cathy ent size. COMPARISON: 11/28/2022 FINDINGS: Image quality: Good Lower chest: Lung bases are unremarkable. There is bibasilar atelectasis. Postsurgical changes at the gastroesophageal junction and partial gastrectomy. Solid organs: Liver cysts and hemangiomas again seen no focal suspicious hepatic liver lesion. Cholec ystectomy. Mildly dilated biliary tree, expected postcholecystectomy, unchanged no pathologic pancrea tic ductal dilation. No splenomegaly. No adrenal nodules. No hydronephrosis. Vessels and lymph nodes: The main portal vein appears patent. No abdominal aortic aneurysm or patholo gic lymph nodes by size criteria. Some prominent retroperitoneal lymph nodes are present, slightly en larged from prior imaging, possibly reactive. Bowel and peritoneum: No evidence of small bowel obstruction. Postsurgical changes of the stomach. No drainable abscess. Appendix appears nondilated. Mildly hyperemic terminal ileum. Body wall: Unremarkable Pelvis: Moderate inflammatory changes are seen around the adnexa bilaterally. Prominent bilateral ova macy, with multiple follicles and surrounding edema. Uterus appears unremarkable. Bladder appears unr emarkable. Bones: No acute or suspicious osseous finding. Possible sequela of sacroiliitis again seen. IMPRESSION: Possible infectious or inflammatory terminal ileitis. Correlate with any history of IBD. Partially seen appendix is nondilated. Moderate inflammatory changes around the adnexa, consider pelvic ultrasound correlation. The ovaries are prominent. Agree with preliminary report. Reviewed by: Arturo Vizcarra MD on 01/05/2023 9:06 AM PDT Approved by: Arturo Vizcarra MD on 01/05/2023 9:06 AM PDT Station ID: [id number]
[2023-01-05 09:22] LABS: BASOPHILS % (AUTO) 0.5 %; EOSINOPHILS # (AUTO) 0.2 10^3/uL (0.0-0.7); EOSINOPHILS % (AUTO) 2.4 %; HCT - HEMATOCRIT 36.4 % (37.0-47.0); LYMPHOCYTES # (AUTO) 2.3 10^3/uL (1.5-3.5); LYMPHOCYTES % (AUTO) 30.9 %; MEAN CORPUSCULAR HEMOGLOBIN 28.7 pg (27.0-31.0); MEAN CORPUSCULAR VOLUME 87.1 fL (81.0-99.0); MEAN PLATELET VOLUME 8.8 fL (7.9-10.8); MONOCYTES # (AUTO) 0.5 10^3/uL (0.0-1.0); MONOCYTES % (AUTO) 7.2 %; NEUTROPHILS # (AUTO) 4.4 10^3/uL (1.5-6.6); NEUTROPHILS % (AUTO) 58.7 %; PLT - PLATELET COUNT 297 10^3/uL (130-450); RED BLOOD COUNT 4.18 10^6/uL (4.20-5.40); RED CELL DISTRIBUTION WIDTH 13.8 % (12.0-15.0); WHITE BLOOD COUNT 7.5 x10^3/uL (4.8-10.8)
--- NOTE | 2023-01-05 09:27 | Ultrasound Report ---
PROCEDURE: Pelvic w/Transvag+Doppler Comp INDICATIONS: abnormal CT A/P TECHNIQUE: Real-time scanning was performed of the pelvic organs, with image documentation. Additional endovagi nal scanning was necessary due to incomplete visualization of the adnexal and endometrial structures by transabdominal scanning. Doppler interrogation was performed of the ovaries bilaterally. COMPARISON: Same-day CT FINDINGS: Uterus: 11.4 x 6.8 x 7.3 cm. Estimated volume is 300 cc. Endometrium measures 3.3 cm. Overall heterog eneous echotexture. Anteverted positioning. Large intramural (FIGO 2-5) fibroid in the right anterior region measures 5.5 x 4.3 x 5.6 cm. Ovaries: The right ovary appears hyperemic, overall measuring 3.3 x 2.8 x 2.6 cm. Possible hematosalp inx versus complex collection measuring 3.9 x 1.9 x 2.6 cm at the right adnexa. This less likely repr esents a mass. Left ovary measures 5.5 x 2.8 x 3.3 cm. Estimated volume is 26 cc. Color and spectral Doppler: flows are documented Other: No pathologic free fluid elsewhere. IMPRESSION: Possible hematosalpinx versus complex collection in the right adnexal region measuring up to 3.9 x 2. 6 cm. Sterility is indeterminate. This less likely represents a mass. Hyperemic appearing right ovary . Mild to moderate enlargement of the left ovary measuring 26 cc in volume. Consider follow-up ultrasound and/or gynecologic consultation depending on clinical context. Large fibroid. Reviewed by: Arturo Vizcarra MD on 01/05/2023 9:26 AM PDT Approved by: Arturo Vizcarra MD on 01/05/2023 9:26 AM PDT Station ID: [id number]
[2023-01-05 11:24] VITALS: BP 148/88; O2SAT 99
--- NOTE | 2023-01-12 08:00 | ED Physician Documentation ---
ED Addendum - Addendum Addendum: 01/12/23 07:56 The patient was signed out to me at change of shift by Dr. South, pending results of the pelvic ultrasound. The patient had presented with abdominal pain as per Dr. South note and as such, had been worked up with laboratory studies, urinalysis, and initially, CT scan of the abdomen pelvis. This was read as showing a "tubo-ovarian complex" on the right side and it was not exactly clear what was going on. As such, a an ultrasound had been ordered of the pelvis. T his was pending at the time of signout. The ultrasound was done and again, it really was not clear exactly what was going on with the right ovary and tube. I discussed the case with Dr. Layton who after listening to the details of the case in view and ultrasound results, felt that the patient should have follow-up soon in the women's clinic, but did not feel that she needed any emergent interv ention at this time. While he was on the phone with Dr. Layton, the patient became impatient, stating that she had already been here a long time and she wanted to leave. I let the nursing staff know that I would be with the patient as soon as it was done talking to the consultants about her case; however, the patient ultimately became adamant about wanting to leave while I was still on the phone and walked out of the emergency department. As such I was unable to pass along the instructions from Dr. Layton to follow-up with the women's clinic. I have printed the patient's discharge papers that if she does happen to come back, she can be given the papers and proceed with scheduling her follow-up. Final impression 1. Abdominal pain 2. Adnexal complex Disposition: Patient has eloped from the emergency department without completing treatment.
== END 2023-01-05 11:03 | disposition home or self-care (01) ==
LOC: ED 02:23
DX: R10.31 Right lower quadrant pain (principal); E11.9 Type 2 diabetes mellitus without complications; E03.9 Hypothyroidism, unspecified; Z79.899 Other long term (current) drug therapy
CPT/HCPCS: 36415; 74177; 76830; 76856; 80053; 81001; 81025; 83690; 85025; 93975; 96374; 96375; 99283; 99284; J1200; Q9967; 81003; 87086

== ENCOUNTER 2023-03-24 09:04 | Day surgery (SDC) | payer MEDICAID ==
[2023-03-24 09:29] LABS: HCG UR QUAL NEGATIVE
[2023-03-24 09:31] VITALS: O2SAT 100
[2023-03-24 09:34] LABS: BASOPHILS # (AUTO) 0.1 10^3/uL (0.0-0.1); BASOPHILS % (AUTO) 0.9 %; EOSINOPHILS # (AUTO) 0.2 10^3/uL (0.0-0.7); EOSINOPHILS % (AUTO) 3.3 %; HCT - HEMATOCRIT 37.9 % (37.0-47.0); HGB - HEMOGLOBIN 12.5 g/dL (12.0-16.0); LYMPHOCYTES # (AUTO) 2.6 10^3/uL (1.5-3.5); LYMPHOCYTES % (AUTO) 45.5 %; MEAN PLATELET VOLUME 8.3 fL (7.9-10.8); MONOCYTES # (AUTO) 0.3 10^3/uL (0.0-1.0); MONOCYTES % (AUTO) 5.7 %; NEUTROPHILS # (AUTO) 2.6 10^3/uL (1.5-6.6); NEUTROPHILS % (AUTO) 44.4 %; PLT - PLATELET COUNT 349 10^3/uL (130-450); RED BLOOD COUNT 4.46 10^6/uL (4.20-5.40); RED CELL DISTRIBUTION WIDTH 14.2 % (12.0-15.0); WHITE BLOOD COUNT 5.8 x10^3/uL (4.8-10.8)
[2023-03-24] MEDS ORDERED: LACTATED RINGERS 1,000 ML IV ONE (09:44)
--- NOTE | 2023-03-24 10:11 | ANESTHESIA ---
Pre-Anesthesia VS, & Labs - Diagnosis abnormal uterine bleeding - Procedure hysterscopy d&c Vital Signs: Temp Pulse Resp BP Pulse Ox O2 Flow Rate 36.0 C L 65 16 129/64 100 36.0 03/24/23 09:12 03/24/23 09:12 03/24/23 09:12 03/24/23 09:12 03/24/23 09:12 03/24/23 09:12 Height: 5 ft 9 in Weight (kg): 95.8 kg Body Mass Index: 31.1 BMI Classification: Obese - NPO >8 hours - Is Patient ?: No - Lab Results Current Lab Results: Laboratory Tests 03/24/23 09:28: WBC 5.8, RBC 4.46, Hgb 12.5, Hct 37.9, MCV 85.0, MCH 28.0, MCHC 33.0, RDW 14.2, Plt Count 349, MPV 8.3, Neut # (Auto) 2.6, Lymph # (Auto) 2.6, [place] # (Auto) 0.3, Eos # (Auto) 0.2, Baso # (Auto) 0.1, Absolute Nucleated RBC 0.00, Nucleated RBC % 0.0 Lab results reviewed: Yes Fish Bones: 03/24/23 09:28 Home Medications and Allergies Home Medications: Ambulatory Orders Bariatric Fusion Calcium 500, Vit D 5,000 U 1 tab PO DAILY 03/23/23 Bariatric Mvi Soft Chewy 1 tab PO DAILY 03/23/23 Propranolol [Inderal] 10 mg PO BID 03/23/23 Dextroamphetamine/Amphetamine [Adderall 15 mg Tablet] 15 mg PO DAILY PM 03/05/19 Levothyroxine Sodium [Synthroid] 88 mcg PO DAILY 03/05/19 Dextroamphetamine/Amphetamine [Adderall 30 mg Tablet] 30 mg PO DAILY 07/06/22 Esomeprazole Magnesium [Nexium 24Hr] 40 mg PO DAILY 10/15/22 oxyCODONE [Roxicodone] 10 mg PO Q4-6H PRN 10/15/22 ALPRAZolam [Alprazolam] 0.5 mg PO BID PRN 01/05/23 Acetaminophen [Tylenol] 1,000 mg PO Q6HR PRN 01/05/23 Gabapentin [Neurontin] 800 mg PO TID 01/05/23 Magnesium Hydroxide [Milk of Magnesia] 400 mg PO DAILY 01/05/23 Ondansetron [Ondansetron Odt] 8 mg PO Q6HR PRN 01/05/23 Bariatric Fusion Calcium 500, Vit D 5,000 U 1 tab PO DAILY 03/23/23 Bariatric Mvi Soft Chewy 1 tab PO DAILY 03/23/23 Propranolol [Inderal] 10 mg PO BID 03/23/23 Allergies/Adverse Reactions: Allergies Allergy/AdvReac Type Severity Reaction Status Date / Time hydrocodone bitartrate * Allergy Intermediate Rash Verified 01/05/23 03:23 [From Vicodin] ketorolac tromethamine * Allergy Intermediate Rash Verified 01/05/23 03:23 [From Toradol] Penicillins Allergy Intermediate Rash Verified 01/05/23 03:23 shellfish derived Allergy Intermediate Rash Verified 01/05/23 03:23 Tetracyclic Antidepressants Allergy Intermediate Hallucinati Verified 01/05/23 03:23 ons tramadol Allergy Intermediate Rash Verified 01/05/23 03:23 magnesium sulfate Allergy Mild Rash Verified 01/05/23 03:23 [From Epsom Salt] erythromycin base Allergy Unknown Verified 01/05/23 03:23 [From Erythrocin] milk Allergy Cramps Verified 01/05/23 03:23 whey Allergy Cramps Verified 01/05/23 03:23 hydromorphone AdvReac Severe Emesis Verified 01/05/23 03:23 prednisone AdvReac Severe Anxiety Verified 01/05/23 03:23 ibuprofen AdvReac Intermediate Bloody Verified 01/05/23 03:23 Stools sodium bicarbonate AdvReac Mild Rash Verified 01/05/23 03:23 bupropion [From Wellbutrin] AdvReac Headache Verified 01/05/23 03:23 escitalopram [From Lexapro] AdvReac Headache Verified 01/05/23 03:23 fluoxetine [From Prozac] AdvReac Unknown Verified 01/05/23 03:23 lamotrigine [From Lamictal] AdvReac Rash Verified 01/05/23 03:23 paroxetine [From Paxil] AdvReac Headache Verified 01/05/23 03:23 sertraline [From Zoloft] AdvReac Unknown Verified 01/05/23 03:23 Anes History & Medical History - Anesthetic History Anesthesia Complications: reports: Other-see comment (Difficult wake up after toradol) - Medical History Cardiovascular: reports: None Pulmonary: reports: Asthma, Sleep apnea Gastrointestinal: reports: Crohn's disease, Other Urinary: reports: None Neuro: reports: None Musculoskeletal: reports: Chronic back pain, Other Endocrine/Autoimmune: reports: HyPOthyroidism Blood Disorders: reports: None Skin: reports: None Smoking Status: Former smoker (quit 2012) Psychosocial: reports: Opioid History of Cancer?: No - Surgical History General: reports: Cholecystectomy Exam General: Alert, Oriented x3, Cooperative, No acute distress Dental: WNL Mouth Openin Fingerbreadth Neck Mobility: Normal Mallampati classification: II Thyromental Distance: 4-6 cm Mental/Cognitive Status: Lethargic, Oriented to name, Oriented to date, Oriented to time Plan Anesthesia Type: General Consent for Procedure(s) Verified and Reviewed: Yes Code Status: Attempt Resuscitation ASA classification: 2-Mild systemic disease Is this case an emergency?: No
[2023-03-24] MEDS ORDERED: ONDANSETRON 4 MG/2 ML VIAL IVP PRN (10:13)
[2023-03-24] MEDS ORDERED: NALOXONE 0.4 MG/ML VIAL IVP PRN (10:13)
[2023-03-24] MEDS ORDERED: ATROPINE ABBOJECT 1 MG/10 ML SYRINGE IVP PRN (10:13)
[2023-03-24] MEDS ORDERED: fentaNYL 100 MCG/2 ML VIAL IVP PRN (10:13)
[2023-03-24] MEDS ORDERED: MORPHINE 2 MG/ML CARPUJECT IVP PRN (10:13)
[2023-03-24] MEDS ORDERED: BUPIVACAINE 0.5% PF 10 ML VIAL ONE (10:39)
[2023-03-24] MEDS ORDERED: LIDOCAINE 1%-EPI 1:100000 20 ML MDV ONE (10:39)
--- NOTE | 2023-03-24 10:41 | HISTORY & PHYSICAL EXAMINATION ---
History and Physical - History and Physical HPI: Patient is a 43-year-old -0-3-6 presenting today for hysteroscopy and D&C. We attempted an endometrial biopsy in clinic, but were not unable. All other symptoms reviewed and were negative except per HPI. PMH Hypertension, hypothyroidism, ADHD, mild asthma, depression, anxiety, chronic back pain, headaches, uterine prolapse, diabetes, hypothyroidism PSH Thoracic surgery Cholecystectomy EGD Mesenteric adenitis Left wrist pinning SH Former smoker. No alcohol or drug use. Family History Father: Alcoholism, heart disease, thyroid disease, hypertension Mother: Arthritis, anxiety, hypertension, kidney disease, high cholesterol, thyroid disease Allergies Latex Penicillin Toradol Vicodin Dilaudid Antidepressants Prednisone Medications Xanax, propranolol, gabapentin, Adderall, Tylenol, oxycodone, levothyroxine Physical exam: Temp Pulse Resp BP Pulse Ox O2 Flow Rate 96.8 F L 65 16 129/64 100 36.0 03/24/23 09:12 03/24/23 09:12 03/24/23 09:12 03/24/23 09:12 03/24/23 09:12 03/24/23 09:12 General: Alert, oriented, no acute distress Head: Normal cephalic atraumatic Eyes: PERRLA, extraocular motions intact. Respiratory: Normal rate of respiration. No accessory muscle use, normal respiratory effort. Cardiovascular: Regular rate and rhythm Abdomen: Nontender, nondistended Extremities: Normal range of motion Neuro: Oriented x3. Normal movements Psych: Appropriate mood and affect. Normal judgment and insight Plan Abnormal uterine bleeding -Plan for hysteroscopic D&C. Abnormal uterine bleeding with significant risk factors with morbid obesity prior to her weight loss surgery -Discussed the risk, benefits, alternatives of surgery and she would like to proceed. Previously attempted in office but were unsuccessful. Would like to proceed with surgery.
[2023-03-24] MEDS ORDERED: PROPOFOL 200 MG/20 ML VIAL IVP ONE (10:43)
[2023-03-24] MEDS ORDERED: MIDAZOLAM 2 MG/2 ML VIAL ONE (10:43)
[2023-03-24] MEDS ORDERED: fentaNYL 100 MCG/2 ML VIAL ONE (10:43)
[2023-03-24] MEDS ORDERED: GLYCOPYRROLATE 1 MG/5 ML VIAL ONE (10:53)
[2023-03-24] MEDS ORDERED: DEXAMETHASONE 4 MG/ML VIAL ONE (10:54)
[2023-03-24] MEDS ORDERED: ONDANSETRON 4 MG/2 ML VIAL ONE (10:54)
[2023-03-24] MEDS ORDERED: LACTATED RINGERS 1,000 ML IV SCH (11:00)
[2023-03-24] MEDS ORDERED: ACETAMINOPHEN 1,000 MG/100 ML 1,000 MG/100 ML BAG IV ONE (11:22)
[2023-03-24] MEDS ORDERED: LACTATED RINGERS 300 ML IV ONE ×2 (11:28)
--- NOTE | 2023-03-24 11:29 | OPERATIVE REPORT ---
Operative Report - General Procedure Date: 03/24/23 Planned Procedure: Hysteroscopy, MyoSure D&C Pre-Op Diagnosis: Abnormal uterine bleeding Procedure Performed: Hysteroscopy, MyoSure D&C Post Op Diagnosis: Abnormal uterine bleeding - Procedure Note Primary Surgeon: Eddie Layton MD Anesthesia Provider: Juan Vu CRNA Anesthesia Technique: General ET tube Pathology: Endometrial curettings IV Fluids (mL): 600 Estimated Blood Loss (mL): 10 Findings: Proliferative appearing endometrium with some long strands obscuring the cavity. Normal appearing cervical canal. Complications: None - Other Other Information/Narrative: Patient was taken to the procedure room and placed in dorsal lithotomy position. Hibiclens was used to clean the operative area. Forney speculum was palced in the vagina and the cervix was visualized. The anterior lip the cervix was grasped with a single-tooth tenaculum. The cervix was non-stenotic and allowed the easy passage of dilators. Hysteroscope was then used to hydrodilate using normal saline distention media. Hysteroscope was advanced without difficulty using hydrodistention. Cervical canal was noted to have no lesions. Upon entry into the internal cervical os there was noted to be proliferative endometrium within the uterus diffusely. She had some longer strands although did not appear to be polyps. Bilateral tubal ostia were noted. Hysteroscope was then removed. A sharp curetting was then performed. Tenaculum was then removed from the cervix noted to be hemostatic. All instruments removed from the vagina and patient was taken to PACU in good condition. Fluid deficit 415 ml.
[2023-03-24 12:31] VITALS: BP 116/62
--- NOTE | 2023-03-24 13:46 | ANESTHESIA POST OP EVALUATION ---
Anesthesia Post Eval - Post Anesthesia Eval Vitals: Last Vital Signs Temp 36.0 C L 03/24/23 12:23 Pulse 60 03/24/23 12:23 Resp 16 03/24/23 12:23 BP 116/62 03/24/23 12:23 Pulse Ox 100 03/24/23 12:23 O2 Flow Rate 36.0 03/24/23 09:12 CV Function Including HR & BP: Stable Pain Control: Satisfactory Nausea & Vomiting: Negative Mental Status: Baseline Respiratory Status: Airway Patent Hydration Status: Satisfactory Anesthesia Complications: None
== END 2023-03-24 09:05 | disposition home or self-care (01) ==
LOC: SDS 09:04
PROVIDERS: ATTEND Obstetrics & Gynecology
PROC: 0UDB8ZZ Extraction of Endometrium, Via Natural or Artificial Opening Endoscopic (ICD-10-PCS; principal; 2023-03-24 10:15)
DX: N93.9 Abnormal uterine and vaginal bleeding, unspecified (principal); E66.9 Obesity, unspecified; J45.909 Unspecified asthma, uncomplicated; E11.9 Type 2 diabetes mellitus without complications; I10 Essential (primary) hypertension; Z68.31 Body mass index [BMI] 31.0-31.9, adult; E03.9 Hypothyroidism, unspecified; F41.9 Anxiety disorder, unspecified
CPT/HCPCS: 36415; 58558; 81025; 85025; J0131; J7120

== ENCOUNTER 2023-04-22 12:10 | Emergency (ER) | payer MEDICAID ==
[2023-04-22 12:28] VITALS: O2SAT 100
[2023-04-22 12:47] LABS: BASOPHILS % (AUTO) 0.4 %; EOSINOPHILS # (AUTO) 0.1 10^3/uL (0.0-0.7); EOSINOPHILS % (AUTO) 1.2 %; HCT - HEMATOCRIT 37.4 % (37.0-47.0); HGB - HEMOGLOBIN 12.1 g/dL (12.0-16.0); LYMPHOCYTES # (AUTO) 1.1 10^3/uL (1.5-3.5); LYMPHOCYTES % (AUTO) 11.1 %; MEAN CORPUSCULAR HEMOGLOBIN 27.8 pg (27.0-31.0); MEAN CORPUSCULAR HGB CONC 32.4 g/dL (32.0-36.0); MEAN PLATELET VOLUME 8.6 fL (7.9-10.8); MONOCYTES # (AUTO) 0.5 10^3/uL (0.0-1.0); MONOCYTES % (AUTO) 5.1 %; NEUTROPHILS # (AUTO) 8.4 10^3/uL (1.5-6.6); NEUTROPHILS % (AUTO) 81.8 %; PLT - PLATELET COUNT 299 10^3/uL (130-450); RED BLOOD COUNT 4.35 10^6/uL (4.20-5.40); WHITE BLOOD COUNT 10.2 x10^3/uL (4.8-10.8)
[2023-04-22 13:01] LABS: ALBUMIN/GLOBULIN RATIO 1.9 (1.0-2.2); ALKALINE PHOSPHATASE 55 IU/L (42-121); ALT ALANINE AMINOTRANSFERASE 12 IU/L (10-60); AST ASPARTATE AMINOTRANSFERASE 11 IU/L (10-42); BILIRUBIN,TOTAL 0.6 mg/dL (0.2-1.0); BUN - BLOOD UREA NITROGEN 14 mg/dL (6-20); CARBON DIOXIDE - CO2 24 mmol/L (21-32); CHLORIDE 105 mmol/L (101-111); CREATININE 0.6 mg/dL (0.6-1.3); GFR - MDRD 109 (>89); GLUCOSE 111 mg/dL (74-104); LIPASE < 10 U/L (11-82); POTASSIUM 3.7 mmol/L (3.5-4.5); SODIUM 136 mmol/L (135-145); TOTAL PROTEIN 6.1 g/dL (6.4-8.9)
--- NOTE | 2023-04-22 15:01 | ED Physician Documentation ---
PD HPI ABD PAIN - Stated complaint Stated Complaint: ABD PX - Chief complaint Chief Complaint: Abd Pain - History obtained from History obtained from: Patient - History of Present Illness Timing - onset: Today Timing - details: Abrupt onset, Still present Quality: Cramping, Aching, Pain Location: RLQ, Suprapubic, LLQ Radiation: Lower back. No: Left flank, Right flank Improved by: No: Eating, Laying still Worsened by: Moving, Palpation. No: Eating Associated symptoms: Nausea, Vaginal bleeding (started menses with usual bleeding amount.). No: Fever, Diarrhea, Constipation, Dysuria Review of Systems Constitutional: denies: Fever, Chills Nose: denies: Rhinorrhea / runny nose, Congestion Throat: denies: Sore throat Respiratory: denies: Cough GI: reports: Abdominal Pain, Nausea. denies: Vomiting, Diarrhea PD PAST MEDICAL HISTORY - Past Medical History Cardiovascular: None Respiratory: Asthma, Sleep apnea Neuro: None Endocrine/Autoimmune: HyPOthyroidism GI: Crohn's disease, Other [employer]: None : None HEENT: None Psych: Anxiety, ADD/ADHD Musculoskeletal: Chronic back pain, Other Derm: None - Past Surgical History Past Surgical History: Yes General: Cholecystectomy - Present Medications Home Medications: Ambulatory Orders Medication Instructions Recorded Confirmed Dextroamphetamine/Amphetamine 15 mg PO DAILY PM 03/05/19 03/23/23 [Adderall 15 mg Tablet] Levothyroxine Sodium [Synthroid] 88 mcg PO DAILY 03/05/19 03/23/23 Albuterol Sulf [Ventolin Hfa 1 - 2 puffs INH Q4HR PRN #1 each 05/18/22 03/23/23 Inhaler] Dextroamphetamine/Amphetamine 30 mg PO DAILY 07/06/22 03/23/23 [Adderall 30 mg Tablet] Esomeprazole Magnesium [Nexium 40 mg PO DAILY 10/15/22 03/23/23 24Hr] oxyCODONE [Roxicodone] 10 mg PO Q4-6H PRN 10/15/22 03/23/23 polyethylene glycoL 3350(BULK) 17 gm PO DAILY PRN #1 each 10/15/22 03/23/23 [Miralax] ALPRAZolam [Alprazolam] 0.5 mg PO BID PRN 01/05/23 03/23/23 Acetaminophen [Tylenol] 1,000 mg PO Q6HR PRN 01/05/23 03/23/23 Gabapentin [Neurontin] 800 mg PO TID 01/05/23 03/23/23 Magnesium Hydroxide [Milk of 400 mg PO DAILY 01/05/23 03/23/23 Magnesia] Ondansetron [Ondansetron Odt] 8 mg PO Q6HR PRN 01/05/23 03/23/23 Bariatric Fusion Calcium 500, Vit 1 tab PO DAILY 03/23/23 03/23/23 D 5,000 U Bariatric Mvi Soft Chewy 1 tab PO DAILY 03/23/23 03/23/23 Propranolol [Inderal] 10 mg PO BID 03/23/23 03/24/23 Ondansetron Odt [Zofran] 4 mg TL Q6H PRN #15 tablet 04/22/23 dexAMETHasone [Decadron] 4 mg PO DAILY #5 tablet 04/22/23 oxyCODONE [Roxicodone] 5 mg PO Q6H PRN #20 tablet 04/22/23 - Allergies Allergies/Adverse Reactions: Allergies Allergy/AdvReac Type Severity Reaction Status Date / Time hydrocodone bitartrate * Allergy Intermediate Rash Verified 01/05/23 03:23 [From Vicodin] ketorolac tromethamine * Allergy Intermediate Rash Verified 01/05/23 03:23 [From Toradol] Penicillins Allergy Intermediate Rash Verified 01/05/23 03:23 shellfish derived Allergy Intermediate Rash Verified 01/05/23 03:23 Tetracyclic Antidepressants Allergy Intermediate Hallucinati Verified 01/05/23 03:23 ons tramadol Allergy Intermediate Rash Verified 01/05/23 03:23 magnesium sulfate Allergy Mild Rash Verified 01/05/23 03:23 [From Epsom Salt] erythromycin base Allergy Unknown Verified 01/05/23 03:23 [From Erythrocin] milk Allergy Cramps Verified 01/05/23 03:23 whey Allergy Cramps Verified 01/05/23 03:23 hydromorphone AdvReac Severe Emesis Verified 01/05/23 03:23 prednisone AdvReac Severe Anxiety Verified 01/05/23 03:23 ibuprofen AdvReac Intermediate Bloody Verified 01/05/23 03:23 Stools sodium bicarbonate AdvReac Mild Rash Verified 01/05/23 03:23 bupropion [From Wellbutrin] AdvReac Headache Verified 01/05/23 03:23 escitalopram [From Lexapro] AdvReac Headache Verified 01/05/23 03:23 fluoxetine [From Prozac] AdvReac Unknown Verified 01/05/23 03:23 lamotrigine [From Lamictal] AdvReac Rash Verified 01/05/23 03:23 paroxetine [From Paxil] AdvReac Headache Verified 01/05/23 03:23 sertraline [From Zoloft] AdvReac Unknown Verified 01/05/23 03:23 - Social History Does the pt smoke?: No Smoking Status: Never smoker Does the pt drink ETOH?: No Does the pt have substance abuse?: No - Immunizations Immunizations are current?: Yes - POLST Patient has POLST: No PD ED PE NORMAL - Vitals Vital signs reviewed: Yes - General General: Alert and oriented X 3, Well developed/nourished, Other (appears in pain lowera bd. ) - Cardiac Cardiac: RRR, No murmur - Respiratory Respiratory: Clear bilaterally - Abdomen Abdomen: Normal bowel sounds, Soft, Non distended, Other (tender lower abd mid/left/right uniformly. Upper abd not tender. No percussion nor rebound tenderness. ) - Female Female : Deferred - Rectal Rectal: Deferred - Derm Derm: Normal color, Warm and dry Results - Vitals Vitals: Vital Signs - 24 hr 04/22/23 04/22/23 04/22/23 12:23 16:35 18:19 Temperature 36.7 C 37 C 36.8 C Heart Rate 74 83 75 Respiratory 14 20 20 Rate Blood Pressure 136/81 H 128/76 128/74 O2 Saturation 100 100 100 Oxygen O2 Source Room air - Labs Labs: Laboratory Tests 04/22/23 04/22/23 04/22/23 12:31 12:31 12:31 WBC 10.2 RBC 4.35 Hgb 12.1 Hct 37.4 MCV 86.0 MCH 27.8 MCHC 32.4 RDW 14.0 Plt Count 299 MPV 8.6 Neut # (Auto) 8.4 H Lymph # (Auto) 1.1 L [place] # (Auto) 0.5 Eos # (Auto) 0.1 Baso # (Auto) 0.0 Absolute Nucleated RBC 0.00 Nucleated RBC % 0.0 Sodium 136 Potassium 3.7 Chloride 105 Carbon Dioxide 24 Anion Gap 7.0 BUN 14 Creatinine 0.6 Estimated GFR (MDRD) 109 Glucose 111 H Calcium 9.0 Total Bilirubin 0.6 AST 11 ALT 12 Alkaline Phosphatase 55 C-Reactive Protein 11.1 H Total Protein 6.1 L Albumin 4.0 Globulin 2.1 Albumin/Globulin Ratio 1.9 Lipase < 10 L Urine Color Urine Clarity Urine pH Ur Specific [place] Urine Protein Urine Glucose (UA) Urine Ketones Urine Occult Blood Urine Nitrite Urine Bilirubin Urine Urobilinogen Ur Leukocyte Esterase Urine RBC Urine WBC Ur Squamous Epith Cells Urine Bacteria Urine Mucus Ur Microscopic Review Urine Culture Comments Urine HCG, Qual 04/22/23 15:10 WBC RBC Hgb Hct MCV MCH MCHC RDW Plt Count MPV Neut # (Auto) Lymph # (Auto) [place] # (Auto) Eos # (Auto) Baso # (Auto) Absolute Nucleated RBC Nucleated RBC % Sodium Potassium Chloride Carbon Dioxide Anion Gap BUN Creatinine Estimated GFR (MDRD) Glucose Calcium Total Bilirubin AST ALT Alkaline Phosphatase C-Reactive Protein Total Protein Albumin Globulin Albumin/Globulin Ratio Lipase Urine Color YELLOW Urine Clarity HAZY Urine pH 6.0 Ur Specific [place] >=1.030 H Urine Protein TRACE Urine Glucose (UA) NEGATIVE Urine Ketones NEGATIVE Urine Occult Blood LARGE H Urine Nitrite NEGATIVE Urine Bilirubin NEGATIVE Urine Urobilinogen 0.2 (NORMAL) Ur Leukocyte Esterase NEGATIVE Urine RBC 11-25 H Urine WBC 0-3 Ur Squamous Epith Cells MOD Squamous H Urine Bacteria Few Urine Mucus Marked Strands Ur Microscopic Review INDICATED Urine Culture Comments NOT INDICATED Urine HCG, Qual NEGATIVE PD Medical Decision Making - ED course Complexity details: re-evaluated patient (pain improved with IV fluids, fentanyl and Zofran. Prior gastric bypass and not supposed to take NSAIDs. She can take steroids but has gotten fischer with prednisone. Says had done okay with limited other steroids and Decadron sounded familiar. ), considered differential (she has had similar episodes of lower abd pain about monthly, with prior CTs showing mesenteric adenitis, terminal ileitis. No focal other findings. Given similar episode, shared deicison with pt to not do CT imaging. ), d/w patient ED course: Pt with interval episodes of lower abd pain similar to this. Imflammatory findings on prior scans with ileitis, and couple times mesenteric adenitis. No focal other source. She has had uterine pains and bleeding as well, and is getting scheduled hysterectomy in [facility] by DR. Layton. Presume they will look around while having laparoscopy for consideration of endometriosis as cause of these episdoes. Could also be some irritant in pelvis/abd from menstrual bood backing up to pelvis due to poor outflow from uterus/cercvix Dx with hysterosco py recently. Other considerations would be Crohns type inflammatory bowel disease, malabsoprtion processes (though monthly timing would be more unusual), UTI, or other problems. Departure - Departure Disposition: 01 Home, Self Care Clinical Impression: Recurrent lower abdominal pain Condition: Stable Instructions: ED Abdominal Pain Female Non-Specific Abdominal Pain Follow-Up: Pako Rockwell MD [Primary Care Provider] - Eddie Layton MD [Provider Admit Priv/Credential] - Prescriptions: dexAMETHasone [Decadron] 4 mg PO DAILY #5 tablet oxyCODONE [Roxicodone] 5 mg PO Q6H PRN #20 tablet PRN Reason: Pain Ondansetron Odt [Zofran] 4 mg TL Q6H PRN #15 tablet PRN Reason: Nausea / Vomiting Comments: Your basic blood count and electrolytes and urine test are okay. At this point we will presume it is a recurrence of the inflammatory type process that you have had before. Consideration could also be for endometriosis or such. I would suggest staying well-hydrated and drink lots of fluids. Use ondansetron/Zofran if needed for nausea. Tylenol 500 to 650 mg 4 times daily to help with pains. Add oxycodone every 6 hours if needed for worse pain. We did give a dose of dexamethasone steroid in the IV here. See if that has a good effect in the next day or 2. A single dose may be adequate. Otherwise I did write a prescription for 5 days more of an oral dose to act as an anti- inflammatory without being an NSAID. Recheck if not improving well over the next few days. Return if worse. I sent your prescriptions to [facility] pharmacy. I am prescribing a short course of narcotic pain medication for you. These are potentially dangerous and addictive medications that should be used carefully. These medications may constipate you. Take an [id number] stool softener such as docusate twice daily with plenty of water while taking these medications. If you go 24 hours without a bowel movement, take [id number] MiraLAX, per package instructions. Do not drink or drive while taking these medications. If you received narcotic or sedating medications while in the emergency department do not drive for 24 hours. Store this medication in a safe, secure place and out of reach of children. It is a violation of federal law to give or sell this medication to another person or to use in a manner other than prescribed. The ED will not refill narcotic prescriptions, including prescriptions lost or stolen. You can dispose of unwanted medications at the [facility]'s office or at several pharmacies such as [facility]. Forms: PCP List Discharge Date/Time: 04/22/23 18:20
[2023-04-22 15:23] LABS: BILIRUBIN,URINE NEGATIVE (NEGATIVE); GLUCOSE, URINE (UA) NEGATIVE (NEGATIVE); KETONES,URINE (UA) NEGATIVE (NEGATIVE); LEUKOCYTE ESTERASE, URINE NEGATIVE (NEGATIVE); NITRITE,URINE NEGATIVE (NEGATIVE); OCCULT BLOOD,URINE LARGE (NEGATIVE); PROTEIN,URINE TRACE mg/dL (NEGATIVE); UROBILINOGEN,URINE 0.2 (NORMAL) E.U./dL (NORMAL)
[2023-04-22 15:27] LABS: CLARITY,URINE HAZY (CLEAR); HCG UR QUAL NEGATIVE
[2023-04-22 15:33] LABS: BACTERIA,URINE Few /HPF (None Seen); MUCUS,URINE Marked Strands; SQUAMOUS EPITHELIAL CELL,UR MOD Squamous (<= Few); WBC,URINE 0-3 /HPF (0-5)
[2023-04-22] MEDS ORDERED: fentaNYL 100 MCG/2 ML VIAL IVP STA ×2 (15:38→17:00)
[2023-04-22] MEDS ORDERED: ONDANSETRON 4 MG/2 ML VIAL IVP STA (15:38)
[2023-04-22] MEDS ORDERED: SODIUM CHLORIDE 0.9% 1,000 ML IV STA (15:40)
[2023-04-22] MEDS ORDERED: DEXAMETHASONE 10 MG/ML VIAL IVP STA (17:00)
[2023-04-22 18:27] VITALS: BP 128/74
== END 2023-04-22 18:20 | disposition home or self-care (01) ==
LOC: ED 12:10
DX: R10.31 Right lower quadrant pain (principal); M54.50 Low back pain, unspecified
CPT/HCPCS: 36415; 80053; 81001; 81003; 81025; 83690; 85025; 86140; 87086; 96374; 96375; 96376; 99283

== ENCOUNTER 2023-07-02 08:00 | Outpatient (CLI) | payer MEDICAID | END 2023-07-02 23:59 | disposition home or self-care (01) | LOC: LAB 08:00 | PROVIDERS: ATTEND Urology | DX: Z96.0 Presence of urogenital implants (principal) | CPT/HCPCS: 87086 ==

== ENCOUNTER 2023-07-20 07:37 | Day surgery (SDC) | payer MEDICAID ==
[~2023-07-20 07:37] MED LIST: ceFAZolin 2 GM VIAL ONE
[2023-07-20] MEDS: LACTATED RINGERS 1,000 ML IV ONE (08:10)
--- NOTE | 2023-07-20 08:24 | ANESTHESIA ---
Pre-Anesthesia VS, & Labs - Diagnosis Left ureter injury, s/p repair - Procedure cystoscopy, left retrograde pyelogram, ureteral stent exchange vs removal. Vital Signs: Temp Pulse Resp BP Pulse Ox O2 Flow Rate 36.6 C 84 13 146/66 H 100 07/20/23 08:03 07/20/23 08:03 07/20/23 08:03 07/20/23 08:03 07/20/23 08:03 Height: 5 ft 9.5 in Weight (kg): 89 kg Body Mass Index: 28.5 BMI Classification: Overweight - NPO >8 hours - Is Patient ?: No Home Medications and Allergies Home Medications: Ambulatory Orders ALPRAZolam [Alprazolam] 0.5 mg PO DAILY PRN 07/14/23 Levothyroxine Sodium [Synthroid] 88 mcg PO DAILY 03/05/19 Dextroamphetamine/Amphetamine [Adderall 30 mg Tablet] 30 mg PO DAILY 07/06/22 Acetaminophen [Tylenol] 1,000 mg PO TID PRN 01/05/23 Gabapentin [Neurontin] 800 mg PO TID 01/05/23 Bariatric Fusion Calcium 500, Vit D 5,000 U 1 tab PO DAILY 03/23/23 Bariatric Mvi Soft Chewy 1 tab PO DAILY 03/23/23 Propranolol [Inderal] 10 mg PO DAILY PRN 03/23/23 Dextroamphetamine/Amphetamine [Adderall 30 mg Tablet] 15 mg PO 1200 05/29/23 oxyBUTYnin chloride [Oxybutynin Chloride] 10 mg PO TID 06/26/23 oxyCODONE [Roxicodone] 15 mg PO Q6H PRN 06/26/23 ALPRAZolam [Alprazolam] 0.5 mg PO DAILY PRN 07/14/23 Allergies/Adverse Reactions: Allergies Allergy/AdvReac Type Severity Reaction Status Date / Time hydrocodone bitartrate * Allergy Intermediate Rash Verified 01/05/23 03:23 [From Vicodin] ketorolac tromethamine * Allergy Intermediate Rash Verified 01/05/23 03:23 [From Toradol] Penicillins Allergy Intermediate Rash Verified 01/05/23 03:23 shellfish derived Allergy Intermediate Rash Verified 01/05/23 03:23 Tetracyclic Antidepressants Allergy Intermediate Hallucinati Verified 01/05/23 03:23 ons tramadol Allergy Intermediate Rash Verified 01/05/23 03:23 magnesium sulfate Allergy Mild Rash Verified 01/05/23 03:23 [From Epsom Salt] erythromycin base Allergy Unknown Verified 01/05/23 03:23 [From Erythrocin] milk Allergy Cramps Verified 01/05/23 03:23 whey Allergy Cramps Verified 01/05/23 03:23 hydromorphone AdvReac Severe Emesis Verified 01/05/23 03:23 prednisone AdvReac Severe Anxiety Verified 01/05/23 03:23 ibuprofen AdvReac Intermediate Bloody Verified 01/05/23 03:23 Stools sodium bicarbonate AdvReac Mild Rash Verified 01/05/23 03:23 bupropion [From Wellbutrin] AdvReac Headache Verified 01/05/23 03:23 escitalopram [From Lexapro] AdvReac Headache Verified 01/05/23 03:23 fluoxetine [From Prozac] AdvReac Unknown Verified 01/05/23 03:23 lamotrigine [From Lamictal] AdvReac Rash Verified 01/05/23 03:23 paroxetine [From Paxil] AdvReac Headache Verified 01/05/23 03:23 sertraline [From Zoloft] AdvReac Unknown Verified 01/05/23 03:23 Anes History & Medical History - Anesthetic History Anesthesia Complications: reports: No previous complications - Medical History Cardiovascular: reports: Hypertension Pulmonary: reports: Asthma, Sleep apnea Gastrointestinal: reports: Ulcers, Hiatal hernia, Chronic constipation, Other Urinary: reports: Other (hx of left ureteral injury) Neuro: reports: None Musculoskeletal: reports: Chronic back pain, Other Endocrine/Autoimmune: reports: HyPOthyroidism Blood Disorders: reports: None Skin: reports: Eczema, Rosacea Smoking Status: Never smoker Psychosocial: reports: Anxiety, Opioid - Surgical History General: reports: Cholecystectomy, Gastric surgery Gynecologic: reports: Hysterectomy, Other Orthopedic: reports: Other Exam General: Alert, Oriented x3, Cooperative, No acute distress Dental: WNL Mouth Openin Fingerbreadth Neck Mobility: Normal Mallampati classification: I Thyromental Distance: 4-6 cm Mental/Cognitive Status: Alert/Oriented X3, Normal for patient Plan Anesthesia Type: Spinal (Patient refuses general anesthesia under any circumstances.) Consent for Procedure(s) Verified and Reviewed: Yes Code Status: Attempt Resuscitation ASA classification: 3-Severe systemic disease Is this case an emergency?: No
[2023-07-20] MEDS: ALPRAZolam 0.25 MG TABLET PO ONE (08:26)
[2023-07-20] MEDS ORDERED: ATROPINE ABBOJECT 1 MG/10 ML SYRINGE IVP PRN (08:27)
[2023-07-20] MEDS ORDERED: fentaNYL 100 MCG/2 ML VIAL IVP PRN (08:27)
[2023-07-20] MEDS ORDERED: MORPHINE 2 MG/ML CARPUJECT IVP PRN (08:27)
[2023-07-20] MEDS ORDERED: ONDANSETRON 4 MG/2 ML VIAL IVP PRN ×2 (08:27→09:50)
[2023-07-20] MEDS ORDERED: NALOXONE 0.4 MG/ML VIAL IVP PRN (08:27)
[2023-07-20] MEDS ORDERED: HYDROmorphone 0.5 MG/0.5 ML SYRINGE IVP PRN (08:27)
[2023-07-20] MEDS ORDERED: iohexoL-240 10 ML VIAL IVP ONE (08:57)
[2023-07-20] MEDS ORDERED: LIDOCAINE JELLY 2% 6 ML JEL.PF.APP ONE (08:57)
[2023-07-20] MEDS ORDERED: LACTATED RINGERS 1,000 ML IV SCH (09:00)
[2023-07-20] MEDS ORDERED: ALPRAZolam 0.25 MG TABLET PO ONE (09:00)
[2023-07-20] MEDS: LIDOCAINE JELLY 2% 6 ML JEL.PF.APP UR ONE (09:31)
[2023-07-20] MEDS: iohexoL-240 10 ML VIAL IVP ONE ×2 (09:32)
[2023-07-20] MEDS: LACTATED RINGERS 700 ML IV ONE ×2 (09:43→10:17)
--- NOTE | 2023-07-20 09:52 | Discharge Plan ---
Discharge Plan Problem Reviewed?: Yes Disposition: Home, Self Care Condition: Good Diet: Regular Activity Restrictions: No Restrictions Shower Restrictions: No Driving Restrictions: No Additional Instructions or Follow Up instructions: Your ureteral stent was removed today. You will be contacted for follow-up in [address] Larsen with a renal ultrasound No Smoking: If you smoke, Please STOP! Call for help. Follow-up with: Ilya Larsen MD [Provider Admit Priv/Credential] -
--- NOTE | 2023-07-20 09:56 | OPERATIVE REPORT ---
Operative Report - General Procedure Date: 07/20/23 Planned Procedure: Cystoscopy, left retrograde pyelogram, possible left ureteral stent removal, possible stent exchange Pre-Op Diagnosis: History of left ureteral injury and ureteral reimplantation Procedure Performed: Cystoscopy, left retrograde pyelogram, stent removal Post Op Diagnosis: History of left ureteral injury and ureteral reimplantation - Procedure Note Primary Surgeon: Dayron Anesthesia Provider: KETURAH Sánchez Anesthesia Technique: Spinal Pathology: none Indications: History of left ureteral injury about 6 weeks ago requiring open reimplantation. Stent has remained in place since then. Here for evaluation and possible removal versus replacement of stent Findings: Stent mild encrusted Dome UO patent and drains contrast easily Stent removed Complications: none - Other Other Information/Narrative: After informed consent was obtained by the patient, the patient was brought to the OR and had a spinal block per anesthesia. She was then placed in dorsolithotomy position and prepped draped in usual sterile fashion. A formal timeout was performed reconfirming the patient, procedure and laterality. A 22 Egyptian cystoscope was advanced easily into urinary bladder. There were no masses lesions or other concerns. She had a stent emanating from the dome reimplantation area on the left. It was mildly encrusted. A sensor wire was placed next to it up into the kidney under fluoroscopic guidance. Her old stent was grasped and removed easily. A 5 Egyptian ureteral catheter was placed into the neoureteral orifice and a gentle retrograde pyelogram was performed with contrast. 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 We elected that point time to leave the stent out and so the wire was removed and the bladder was emptied. This concluded the procedure. Patient tolerated procedure well was brought to PACU without further incident. All counts were correct She will follow-up in 3 months time with a renal ultrasound
[2023-07-20 11:28] VITALS: BP 129/72; O2SAT 98
--- NOTE | 2023-07-20 12:51 | ANESTHESIA POST OP EVALUATION ---
Anesthesia Post Eval - Post Anesthesia Eval Vitals: Last Vital Signs Temp 36.6 C 07/20/23 10:19 Pulse 59 L 07/20/23 11:23 Resp 16 07/20/23 11:23 BP 129/72 07/20/23 11:23 Pulse Ox 98 07/20/23 11:23 O2 Flow Rate CV Function Including HR & BP: Stable Pain Control: Satisfactory Nausea & Vomiting: Negative Mental Status: Baseline Respiratory Status: Airway Patent Hydration Status: Satisfactory Anesthesia Complications: None
--- NOTE | 2023-07-20 15:37 | XRAY Report ---
PROCEDURE: OR C-Arm Procedure INDICATIONS: stent exchange FLUORO TIME: 0.1 MIN TECHNIQUE: Intraoperative fluoroscopic images obtained in real-time. COMPARISON: None. FINDINGS: 5 intraoperative fluoroscopic images demonstrate left nephroureteral stent. IMPRESSION: Intraoperative fluoroscopic images demonstrate left nephroureteral stent. Please see separately rigoberto [facility] urology operative report for full details. Reviewed by: Marylu Martino MD on 07/20/2023 3:36 PM PST Approved by: Marylu Martino MD on 07/20/2023 3:36 PM PST Station ID: [id number]
== END 2023-07-20 07:38 | disposition home or self-care (01) ==
LOC: SDS 07:37
PROVIDERS: ATTEND Urology
DX: Z46.6 Encounter for fitting and adjustment of urinary device (principal); S37.10XD Unspecified injury of ureter, subsequent encounter; I10 Essential (primary) hypertension; J45.909 Unspecified asthma, uncomplicated; G47.30 Sleep apnea, unspecified
CPT/HCPCS: 52315; A9270; C1758; J7120; Q9966

== ENCOUNTER 2023-11-02 18:33 | Outpatient (CLI) | payer MEDICAID ==
--- NOTE | 2023-11-03 16:48 | Ultrasound Report ---
PROCEDURE: Renal (Retroperitoneal) INDICATIONS: UTETERAL REIMPLANTATION TECHNIQUE: Real-time scanning was performed of the retroperitoneal organs, with image documentation. COMPARISON: Fluoroscopic image on July 20, 2023. FINDINGS: Kidneys: Kidneys are normal in size. Right kidney measures 12.2 cm long; left kidney measures 11.9 cm long. Right renal cortical thickness is 1.3 cm; left renal cortical thickness is 1.3 cm. No dawson d masses, hydronephrosis, or nephrolithiasis. Bladder: Pre-void bladder volume is 270 mL. Post-void residual is 20 mL. Pre-void images demonstra te no intraluminal masses or stones. On pre-void images, bilateral ureteral jets are noted with colo r Doppler interrogation. (Of note, ureteral jets may not be detectable in up to 25% of cases due to insufficient differences in specific gravity between ureteral and bladder urine). Of note, left uret eral jet appears lateral. Miscellaneous: Pelvic free fluid. IMPRESSION: 1.No hydronephrosis or nephrolithiasis bilaterally. 2.Post void residual is 20 mL with bilateral ureteral jets. 3.Pelvic free fluid which appears simple. Reviewed by: Sheila Thorpe MD on 11/03/2023 4:47 PM PDT Approved by: Sheila Thorpe MD on 11/03/2023 4:47 PM PDT Station ID: [id number]
== END 2023-11-02 18:34 | disposition home or self-care (01) ==
LOC: DI 18:33
PROVIDERS: ATTEND Urology
DX: Z09 Encounter for follow-up examination after completed treatment for conditions other than malignant neoplasm (principal); Z96.89 Presence of other specified functional implants

== ENCOUNTER 2024-01-29 13:19 | Outpatient (CLI) | payer OTHER, MEDICAID ==
--- NOTE | 2024-01-29 14:48 | MRI Report ---
PROCEDURE: Shoulder RT WO INDICATIONS: R ROTATOR CUFF TECHNIQUE: Noncontrast oblique coronal T2 fast spin echo with fat saturation, oblique sagittal T1 spin echo and T2 fast spin echo with fat saturation, axial T1 spin echo and T2 fast spin echo with fat saturation t hrough the shoulder. COMPARISON: 12/19/2021. FINDINGS: Image quality: Excellent. Rotator cuff tendons are intact. Bicipital tendon is normally positioned the bicipital groove. Glenoi d labrum is grossly unremarkable. There is mild to moderate AC joint degenerative change present. No significant glenohumeral joint degenerative change is seen. No para labral cyst formation is seen. No Hill-Sachs type deformity is identified. Visualized musculature appears within normal limits. No joint effusion is present. IMPRESSION: 1. No evidence for significant internal derangement. 2. Mild to moderate AC joint degenerative change. Reviewed by: Ang King MD on 01/29/2024 2:46 PM PDT Approved by: Ang King MD on 01/29/2024 2:46 PM PDT Station ID: [id number]
== END 2024-01-29 13:20 | disposition home or self-care (01) ==
LOC: DI 13:19
PROVIDERS: ATTEND Orthopaedic Surgery
DX: M19.011 Primary osteoarthritis, right shoulder (principal)

== ENCOUNTER 2024-08-09 01:38 | Inpatient (IN) ==
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
[2024-08-09 02:47] LABS: BASOPHILS # (AUTO) 0.1 10^3/uL (0.0-0.1); BASOPHILS % (AUTO) 0.8 %; EOSINOPHILS # (AUTO) 0.2 10^3/uL (0.0-0.7); EOSINOPHILS % (AUTO) 2.7 %; HGB - HEMOGLOBIN 13.4 g/dL (12.0-16.0); LYMPHOCYTES # (AUTO) 2.2 10^3/uL (1.5-3.5); LYMPHOCYTES % (AUTO) 25.2 %; MEAN CORPUSCULAR HEMOGLOBIN 28.1 pg (27.0-31.0); MEAN CORPUSCULAR HGB CONC 31.9 g/dL (32.0-36.0); MEAN CORPUSCULAR VOLUME 88.1 fL (81.0-99.0); MEAN PLATELET VOLUME 8.9 fL (7.9-10.8); MONOCYTES # (AUTO) 0.5 10^3/uL (0.0-1.0); MONOCYTES % (AUTO) 5.3 %; NEUTROPHILS # (AUTO) 5.7 10^3/uL (1.5-6.6); NEUTROPHILS % (AUTO) 65.7 %; PLT - PLATELET COUNT 351 10^3/uL (130-450); RED BLOOD COUNT 4.77 10^6/uL (4.20-5.40); RED CELL DISTRIBUTION WIDTH 13.7 % (12.0-15.0); WHITE BLOOD COUNT 8.7 x10^3/uL (4.8-10.8)
[2024-08-09] MEDS: SODIUM CHLORIDE 0.9% 1,000 ML IV STA ×2 (03:15→04:45)
[2024-08-09] MEDS: MORPHINE 10 MG/ML VIAL IVP STA (03:15)
[2024-08-09] MEDS: HYDROmorphone 1 MG/ML SYRINGE IVP STA (03:16)
[2024-08-09 03:29] LABS: ALBUMIN 4.4 g/dL (3.2-5.5); ALBUMIN/GLOBULIN RATIO 1.4 (1.0-2.2); BILIRUBIN,TOTAL 0.3 mg/dL (0.2-1.0); CALCIUM 9.3 mg/dL (8.5-10.3); CREATININE 0.8 mg/dL (0.6-1.3); POTASSIUM 4.1 mmol/L (3.5-4.5); TOTAL PROTEIN 7.5 g/dL (6.4-8.9)
[2024-08-09] MEDS ORDERED: iohexoL-300 100 ML VIAL ONE (03:55)
[2024-08-09] MEDS: iohexoL-300 100 ML VIAL IVP ONE (04:26)
[2024-08-09 05:15] LABS: BILIRUBIN,URINE NEGATIVE (NEGATIVE); GLUCOSE, URINE (UA) NEGATIVE (NEGATIVE); KETONES,URINE (UA) NEGATIVE (NEGATIVE); LEUKOCYTE ESTERASE, URINE NEGATIVE (NEGATIVE); NITRITE,URINE NEGATIVE (NEGATIVE); OCCULT BLOOD,URINE NEGATIVE (NEGATIVE); PH,URINE 6.5 PH (5.0-7.5); PROTEIN,URINE NEGATIVE (NEGATIVE); UROBILINOGEN,URINE 0.2 (NORMAL) E.U./dL (NORMAL)
[2024-08-09 05:24] LABS: CLARITY,URINE CLEAR (CLEAR)
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
[2024-08-09] MEDS: SODIUM CHLORIDE FLUSH 0.9% 10 ML SYRINGE IVP SCH (07:45)
[2024-08-09] MEDS ORDERED: SODIUM CHLORIDE FLUSH 0.9% 10 ML SYRINGE IVP PRN (07:58)
[2024-08-09] MEDS: SODIUM CHLORIDE 0.9% 1,000 ML IV SCH (08:08)
[2024-08-09] MEDS: ONDANSETRON 4 MG/2 ML VIAL IVP PRN (08:08)
--- NOTE | 2024-08-09 08:51 | CT Report ---
PROCEDURE: CT Abdomen/Pelvis W INDICATIONS: upper abd pain, severe CONTRAST: 100cc [id number] TECHNIQUE: After the administration of intravenous contrast, a CT scan of the abdomen and pelvis was performed. Images were recorded and evaluated at appropriate window settings. Reformats: coronal and sagittal. F or radiation dose reduction, the following was used: automated exposure control, adjustment of mA and /or kV according to patient size. COMPARISON: 05/29/2023 and 01/05/2023. FINDINGS: Image quality: Diagnostic. Lower chest: Dependent atelectasis in posterior aspect of bilateral lung bases are seen. Heart size i s normal, no pericardial effusion.. Liver: Patient is known right and left lobe hemangioma unchanged in size and appearance compared to p rior study. No new solid-appearing hepatic lesion. Gallbladder: No radiopaque stones or wall thickening. Biliary tree: No intrahepatic or extrahepatic dilation, accounting for age. Spleen: No splenomegaly. Pancreas: No pancreatic ductal dilation. Adrenals: No adrenal nodule. Kidneys and ureters: No hydronephrosis. No renal cystic lesion which requires follow up. No solid mas s. Stomach, bowel and peritoneum: Postsurgical changes are noted in stomach. Mild fluid distention of pr oximal small bowel loops in left side of abdomen with a few air-fluid levels. Decompressed mid to dis luc small bowel loops. No abnormal bowel wall thickening. Mild fecal stasis in the colon is seen. No peritoneal free air. Thin-walled fluid collection in left anterior lower pelvis with mass effect on u rinary bladder is noted and measures up to 7.6 x 6.8 cm in size series 2 image 120. Lymph nodes: No central or retroperitoneal adenopathy. Vessels: No infrarenal aortic aneurysm. Patent portal vein. PELVIS Reproductive organs: Unremarkable. Bladder: No abnormal wall thickening, accounting for underdistention. Pelvic lymph nodes: No pelvic adenopathy by size criteria. Bones: No aggressive osseous abnormality. Other: No significant ventral or inguinal hernia. IMPRESSION: 1. Nonspecific mild fluid distention of a few proximal to mid small bowel loops concerning for low-gr vladimir small bowel obstruction versus enteritis. Clinical correlation and follow-up is recommended. 2. Thin-walled fluid collection in left anterior lower pelvis with mass effect on the adjacent sigmoi d colon loop and urinary bladder measures up to 7.6 x 6.8 cm in size. Finding may represent chronic s eroma or hematoma given patient's history of prior surgeries in lower abdomen and pelvis. Clinical co rrelation and follow-up is recommended. Findings are concordant with preliminary interpretation provided by [facility]. Reviewed by: Sony Arredondo MD on 08/09/2024 8:50 AM PDT Approved by: Sony Arredondo MD on 08/09/2024 8:50 AM PDT Station ID: [id number]
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
[2024-08-09] MEDS: ONDANSETRON ODT 4 MG TABLET TL PRN (11:48)
[2024-08-09] MEDS: ACETAMINOPHEN 1,000 MG/100 ML 1,000 MG/100 ML BAG IV PRN (11:48)
--- NOTE | 2024-08-09 13:10 | PHARMACY PROGRESS NOTE ---
Best Possible Medication History Admit Date and Time: 08/09/24 0626 Home Medications Medication Instructions Recorded Confirmed Type levothyroxine 88 mcg tablet 88 mcg PO DAILY 03/05/19 08/09/24 History (Synthroid) dextroamphetamine-amphetamine 30 15 mg PO UD 07/06/22 08/09/24 History mg tablet (Adderall) acetaminophen 500 mg tablet 1,000 mg PO TID PRN PAIN 01/05/23 08/09/24 History gabapentin 800 mg tablet 800 mg PO TID 01/05/23 08/09/24 History (Neurontin) Bariatric Fusion Calcium 500, Vit 1 tab PO DAILY 03/23/23 08/09/24 History D 5,000 U Bariatric Mvi Soft Chewy 1 tab PO DAILY 03/23/23 08/09/24 History alprazolam 0.5 mg tablet 0.5 mg PO TID PRN Anxiety 07/14/23 08/09/24 History ondansetron 8 mg disintegrating 8 mg PO TID 08/09/24 08/09/24 History tablet oxycodone 15 mg tablet 15 mg PO QID PRN pain 08/09/24 08/09/24 History propranolol 20 mg tablet 20 mg PO DAILY 08/09/24 08/09/24 History Processed by: Pharmacy (Medication Reconciliation completed by [employer]) Medications reviewed in ED?: No Medication History completed: Yes Patient Interview: Completed Secondary Source(s): Insurance records [facility] Statement: As the person ultimately responsible for medication therapy, providers are able to order a medication from an existing home medication list in [facility] via the "Reconcile Routine" prior to Confirmation of that medication by customer support advisor. Such practice is discouraged except when the physician, in their clinical judgment, deems that a medical need exists for a medication without regard to previous use.
[2024-08-09] MEDS: MORPHINE 2 MG/ML CARPUJECT IVP PRN (14:25)
[2024-08-09] MEDS ORDERED: HYDROmorphone 0.5 MG/0.5 ML SYRINGE IVP PRN (15:20)
[2024-08-09] MEDS ORDERED: ACETAMINOPHEN 1,000 MG/100 ML 1,000 MG/100 ML BAG IV PRN (17:50)
[2024-08-09] MEDS: PROCHLORPERAZINE 10 MG/2 ML VIAL IVP ONE (18:01)
[2024-08-10] MEDS: MORPHINE 2 MG/ML CARPUJECT IVP PRN ×2 (01:01→16:31)
[2024-08-10 04:10] LABS: HCG UR QUAL NEGATIVE
[2024-08-10 06:29] LABS: HCT - HEMATOCRIT 45.2 % (37.0-47.0); HGB - HEMOGLOBIN 14.7 g/dL (12.0-16.0); MEAN CORPUSCULAR HEMOGLOBIN 28.4 pg (27.0-31.0); MEAN CORPUSCULAR HGB CONC 32.5 g/dL (32.0-36.0); MEAN CORPUSCULAR VOLUME 87.3 fL (81.0-99.0); MEAN PLATELET VOLUME 8.3 fL (7.9-10.8); RED BLOOD COUNT 5.18 10^6/uL (4.20-5.40); RED CELL DISTRIBUTION WIDTH 13.2 % (12.0-15.0); WHITE BLOOD COUNT 9.4 x10^3/uL (4.8-10.8)
[2024-08-10 06:43] LABS: CALCIUM 8.1 mg/dL (8.5-10.3); CREATININE 0.6 mg/dL (0.6-1.3); MAGNESIUM 1.9 mg/dL (1.7-2.3)
[2024-08-10] MEDS ORDERED: DIATRIZOATE MEGLU/DIATRIZO SOD 30 ML BOTTLE PO ONE (07:31)
--- NOTE | 2024-08-10 08:16 | XRAY Report ---
PROCEDURE: XR Abdomen 1 V INDICATIONS: PRE CHECK BEFORE NG TUBE PLACEMENT TECHNIQUE: One view of the abdomen acquired. COMPARISON: CT abdomen and pelvis with contrast 08/09/2024 FINDINGS: Surgical changes and devices: Right upper quadrant surgical clips. Bowel: Dilated small bowel loops up to 4 cm in the left hemiabdomen. Soft tissues: No suspicious abdominal calcifications. Visualized solid organ contours appear normal in size. Bones: No suspicious bony lesions. IMPRESSION: Small bowel obstruction. Reviewed by: Camden Cano MD on 08/10/2024 8:15 AM PDT Approved by: Camden Cano MD on 08/10/2024 8:15 AM PDT Station ID: [id number]
[2024-08-10] MEDS: MORPHINE 2 MG/ML CARPUJECT IVP ONE (08:36)
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
--- NOTE | 2024-08-10 10:18 | PROVIDER PROGRESS NOTE ---
Subjective Subjective Pt reports feeling: Improved Subjective: feeling better after large emesis. no flatus or bm for 3 days. Current Medications Current Medications Current Medications: Current Medications Generic Name Dose Route Start Last Admin Trade Name Freq PRN Reason Stop Dose Admin Al Hydroxide/Mg Hydroxide 5 ml 08/09/24 16:00 Mag Hydrox/Al Hydrox/Simeth 30 Ml Udc PO Q4HR PRN Abdominal Pain Sodium Chloride 1,000 mls @ 100 mls/hr 08/09/24 07:58 08/10/24 04:08 Normal Saline 0.9% IV 100 mls/hr .Q10H RANDAL Administration Acetaminophen 1,000 mg in 100 mls @ 400 mls/hr 08/09/24 07:58 08/10/24 04:26 Acetaminophen IV Infused Q6HR PRN Infusion Moderate Pain (Level 4-6) Lidocaine HCl 5 ml 08/09/24 16:00 Lidocaine Viscous 2% 15 Ml Udc PO Q4H PRN Abdominal Pain Morphine Sulfate 2 mg 08/09/24 17:48 08/10/24 01:01 Morphine 2 Mg/Ml Carpuject IVP 2 mg Q2HR PRN Administration Severe Pain (Level 7-10) Ondansetron HCl 4 mg 08/09/24 07:58 08/10/24 01:01 Ondansetron 4 Mg/2 Ml Vial IVP 4 mg Q6HR PRN Administration Nausea / Vomiting Ondansetron HCl 4 mg 08/09/24 11:37 08/10/24 08:25 Ondansetron Odt 4 Mg Tablet TL 4 mg Q4HR PRN Administration Nausea / Vomiting Sodium Chloride 10 ml 08/09/24 07:58 Sodium Chloride Flush 0.9% 10 Ml Syringe IVP PRN PRN NEEDED PER PROVIDER ORDERS Sodium Chloride 10 ml 08/09/24 09:00 08/10/24 01:01 Sodium Chloride Flush 0.9% 10 Ml Syringe IVP 10 ml 0100,0900,1700 RANDAL Administration Objective Vital Signs/Intake & Output Reviewed Vital Signs: Yes Vital Signs: Vital Signs x48h Temp Pulse Resp BP Pulse Ox 08/10/24 08:33 14 08/10/24 08:17 37.2 C 66 18 159/89 H 100 08/10/24 04:46 36.6 C 61 17 144/81 H 98 Intake & Output: Intake & Output 08/08/24 08/08/24 08/09/24 08/10/24 00:59 23:59 23:59 23:59 Intake Total 3200 / 3200 1100 / 1100 Output Total 1100 / 1100 3000 / 3000 Balance 2100 / 2100 -1900 / -1900 Weight (kg) 104 kg Objective General Appearance: positive No acute distress and Alert Respiratory: positive No respiratory distress Abdomen: positive Other (minimal distension and minimal tenderness) Neurologic/Psychiatric: positive Oriented x3 Lab Results 08/10/24 06:21 08/10/24 06:21 Other Labs: Lab Results x24hrs 08/10/24 08/09/24 Range/Units 06:21 04:40 WBC 9.4 (4.8-10.8) x10^3/uL RBC 5.18 (4.20-5.40) 10^6/uL Hgb 14.7 (12.0-16.0) g/dL Hct 45.2 (37.0-47.0) % MCV 87.3 (81.0-99.0) fL MCH 28.4 (27.0-31.0) pg MCHC 32.5 (32.0-36.0) g/dL RDW 13.2 (12.0-15.0) % Plt Count 320 (130-450) 10^3/uL MPV 8.3 (7.9-10.8) fL Sodium 135 (135-145) mmol/L Potassium 4.0 (3.5-4.5) mmol/L Chloride 105 (101-111) mmol/L Carbon Dioxide 24 (21-32) mmol/L Anion Gap 6.0 (6-13) BUN 9 (6-20) mg/dL Creatinine 0.6 (0.6-1.3) mg/dL Estimated GFR (MDRD) 108 (>89) Glucose 84 (74-104) mg/dL Lactic Acid 0.8 (0.5-2.2) mmol/L Calcium 8.1 L (8.5-10.3) mg/dL Magnesium 1.9 (1.7-2.3) mg/dL Urine HCG, Qual NEGATIVE Assessment/Plan Problem List (1) SBO (small bowel obstruction): Impression: we discussed indications for surgery. she currently has minimal discomfort, minimal distension, and normal vss and normal wbc. we discussed occasionally surgery is necessary. she states she will not have another surgery at [facility]. agree with current care. if she is not improving and/ or gastrografin shows obstruction recommend she be transferred to a hospital that can offer a higher level of care. In addition history left ureter injury. [facility] will not have urology coverage starting this evening. I discussed with her I would feel uncomfortable operating in her pelvis without a ureter stent.
[2024-08-10] MEDS: LIDOCAINE VISCOUS 2% 15 ML UDC PO PRN (10:22)
--- NOTE | 2024-08-10 10:44 | XRAY Report ---
PROCEDURE: XR Chest for Line Placement INDICATIONS: NG tube placement TECHNIQUE: One view of the chest was acquired. COMPARISON: 08/14/2022 FINDINGS: Surgical changes and devices: NG tube tip projects to the GE junction. Lungs and pleura: No pleural effusions or pneumothorax. No consolidation. Mediastinum: Mediastinal contours appear normal. Heart size is normal. Bones and chest wall: No suspicious bony lesions. Overlying soft tissues appear unremarkable. IMPRESSION: NG tube tip projects to the GE junction. Advancement is suggested. Reviewed by: Basil Delatorre MD on 08/10/2024 10:43 AM PDT Approved by: Basil Delatorre MD on 08/10/2024 10:43 AM PDT Station ID: [id number]
[2024-08-11 06:01] LABS: HCT - HEMATOCRIT 37.9 % (37.0-47.0); HGB - HEMOGLOBIN 12.5 g/dL (12.0-16.0); MEAN CORPUSCULAR HEMOGLOBIN 28.4 pg (27.0-31.0); MEAN CORPUSCULAR VOLUME 86.1 fL (81.0-99.0); MEAN PLATELET VOLUME 8.4 fL (7.9-10.8); RED BLOOD COUNT 4.4 10^6/uL (4.20-5.40); RED CELL DISTRIBUTION WIDTH 13.2 % (12.0-15.0); WHITE BLOOD COUNT 7.9 x10^3/uL (4.8-10.8)
[2024-08-11 06:12] LABS: CALCIUM 7.9 mg/dL (8.5-10.3); CREATININE 0.7 mg/dL (0.6-1.3); MAGNESIUM 1.7 mg/dL (1.7-2.3); POTASSIUM 3.5 mmol/L (3.5-4.5)
--- NOTE | 2024-08-11 06:46 | PROVIDER PROGRESS NOTE ---
Subjective General Admit Date: 08/10/24 Procedure Date: 07/20/23 Post Op Days: 388 Other Other Information/Narrative: Unsuccessful attempts to place NG yesterday. Patient requesting transfer if surgery needed. No vomiting since yesterday AM. Patient resting comfortably in her bed this morning. Review of Systems Status of ROS: 10 or more systems reviewed and unremarkable except as noted in history and below Exam Exam GEN: NAD, appears stated age, sleepy, but awakens to voice HEENT: NCAT, MMM, EOMI NEURO: CN II-XII grossly intact, no obvious focal deficits CV: RRR PULM: non labored, on RA ABD: soft, obese, moderate ttp across upper abdomen, otherwise non tender, no rebound or guarding CIRCULATORY: no clubbing, cyanosis, or edema SKIN: no lesions appreciated LYMPH: no obvious lymphadenopathy MSK: 4/4 strength in all extremities PSYCH: Affect is appropriate Impression/Plan Problem List (1) SBO (small bowel obstruction): Plan: 44 y/o F with small bowel obstruction vs enteritis - no concerning lab or vitals findings - benign exam - Recommend small bowel follow through with gastrograffin today. This study could be diagnostic (identify area of blockage, if one exists) and therapeutic (reduce bowel edema). If obstruction noted, and surgery needed, recommend transfer to higher level of care as no urology available at this time, and patient has complex surgical history as previously noted. (2) Chronically on opiate therapy: Plan: Recommend titrating patient's IV pain medication to cover her daily MME's.
[2024-08-11] MEDS ORDERED: DIATRIZOATE MEGLU/DIATRIZO SOD 30 ML BOTTLE PO ONE (07:38)
[2024-08-11] MEDS: PROCHLORPERAZINE 10 MG/2 ML VIAL IVP PRN (10:27)
[2024-08-11] MEDS ORDERED: ACETAMINOPHEN 500 MG TABLET PO PRN (11:37)
--- NOTE | 2024-08-11 12:05 | PROVIDER PROGRESS NOTE ---
Subjective Subjective Subjective: Patient had no episodes of emesis overnight. She remains with some abdominal pain. She has some perisistent nausea. This morning, we did the small bowel follow-through study. This resulted in multiple watery, loose bowel movements. Will trial clear liquids. If she does well with that, will advance to soft diet, may discharge later today. She was admitted in June 2023 for abnormal uterine bleeding, and planned hysterectomy. The hysterectomy was converted to a total abdominal hysterectomy when extensive endometriosis was noted. During this procedure, a ureteral blockage was determined, and the abdominal reimplantation of the ureter was performed. Following this, she had a ureteral stent placed, and urology followed with this; she had it removed a month later. This will experience was quite traumatic for her, and so those feelings are coming back with this hospital stay. Current Medications Current Medications Current Medications: Current Medications Generic Name Dose Route Start Last Admin Trade Name Freq PRN Reason Stop Dose Admin Acetaminophen 1,000 mg 08/11/24 11:37 Acetaminophen 500 Mg Tablet PO TID PRN PAIN Al Hydroxide/Mg Hydroxide 5 ml 08/09/24 16:00 Mag Hydrox/Al Hydrox/Simeth 30 Ml Udc PO Q4HR PRN Abdominal Pain Gabapentin 800 mg 08/11/24 14:00 Gabapentin 400 Mg Capsule PO TID RANDAL Sodium Chloride 1,000 mls @ 100 mls/hr 08/09/24 07:58 08/11/24 04:30 Normal Saline 0.9% IV 25 mls/hr .Q10H RANDAL Infusion Acetaminophen 1,000 mg in 100 mls @ 400 mls/hr 08/09/24 07:58 08/11/24 05:26 Acetaminophen IV Infused Q6HR PRN Infusion Moderate Pain (Level 4-6) Levothyroxine Sodium 88 mcg 08/12/24 07:00 Levothyroxine 88 Mcg Tablet PO QDAC RANDAL Lidocaine HCl 5 ml 08/09/24 16:00 08/10/24 10:22 Lidocaine Viscous 2% 15 Ml Udc PO 5 ml Q4H PRN Administration Abdominal Pain Morphine Sulfate 2 mg 08/10/24 15:15 08/11/24 07:29 Morphine 2 Mg/Ml Carpuject IVP 2 mg Q4HR PRN Administration Severe Pain (Level 7-10) Ondansetron HCl 4 mg 08/09/24 07:58 08/11/24 07:29 Ondansetron 4 Mg/2 Ml Vial IVP 4 mg Q6HR PRN Administration Nausea / Vomiting Ondansetron HCl 4 mg 08/09/24 11:37 08/10/24 08:25 Ondansetron Odt 4 Mg Tablet TL 4 mg Q4HR PRN Administration Nausea / Vomiting Oxycodone HCl 15 mg 08/11/24 11:42 Oxycodone 5 Mg Tablet PO QID PRN Moderate Pain (Level 4-6) Prochlorperazine Edisylate 10 mg 08/11/24 10:05 08/11/24 10:27 Prochlorperazine 10 Mg/2 Ml Vial IVP 10 mg Q6HR PRN Administration Nausea / Vomiting Sodium Chloride 10 ml 08/09/24 07:58 Sodium Chloride Flush 0.9% 10 Ml Syringe IVP PRN PRN NEEDED PER PROVIDER ORDERS Sodium Chloride 10 ml 08/09/24 09:00 08/11/24 07:31 Sodium Chloride Flush 0.9% 10 Ml Syringe IVP 10 ml 0100,0900,1700 RANDAL Administration Objective Vital Signs/Intake & Output Reviewed Vital Signs: Yes Vital Signs: Vital Signs x48h Temp Pulse Resp BP Pulse Ox 08/11/24 08:57 98.8 F 69 16 140/77 H 95 Intake & Output: Intake & Output 08/08/24 08/09/24 08/10/24 08/11/24 23:59 23:59 23:59 23:59 Intake Total 3200 / 3200 2300 / 2300 1193 / 1193 Output Total 1100 / 1100 3675 / 3675 Balance 2099 / 2099 -1375 / -1375 1193 / 1193 Weight (kg) 104 kg Objective General Appearance: positive No acute distress, Alert and Lethargic Eyes Bilateral: positive Normal inspection, PERRL and EOMI ENT: positive ENT inspection nml, Pharynx nml and No signs of dehydration Neck: positive Nml inspection, Thyroid nml and No JVD Respiratory: positive Chest non-tender, No respiratory distress and Breath sounds nml; negative Wheezes, Rales or Rhonchi Cardiovascular: positive Regular rate & rhythm, No murmur and No gallop Abdomen: positive No distention (mild distension noted) and Tenderness (epigastric, RUQ, LUQ tenderness); negative Guarding, Rebound, Hepatomegaly or Splenomegaly Back: positive Nml inspection; negative CVA tenderness (R) or CVA tenderness (L) Skin: positive Color nml, No rash, Warm and Dry Extremities: positive Non-tender, Full ROM and No pedal edema Neurologic/Psychiatric: positive Oriented x3, Mood/affect nml and Other (lethargic, weak) Lab Results 08/11/24 05:39 08/11/24 05:37 Other Labs: Lab Results x24hrs 08/11/24 08/11/24 Range/Units 05:39 05:37 WBC 7.9 (4.8-10.8) x10^3/uL RBC 4.40 (4.20-5.40) 10^6/uL Hgb 12.5 (12.0-16.0) g/dL Hct 37.9 (37.0-47.0) % MCV 86.1 (81.0-99.0) fL MCH 28.4 (27.0-31.0) pg MCHC 33.0 (32.0-36.0) g/dL RDW 13.2 (12.0-15.0) % Plt Count 320 (130-450) 10^3/uL MPV 8.4 (7.9-10.8) fL Sodium 136 (135-145) mmol/L Potassium 3.5 (3.5-4.5) mmol/L Chloride 105 (101-111) mmol/L Carbon Dioxide 23 (21-32) mmol/L Anion Gap 8.0 (6-13) BUN 10 (6-20) mg/dL Creatinine 0.7 (0.6-1.3) mg/dL Estimated GFR (MDRD) 90 (>89) Glucose 74 (74-104) mg/dL Calcium 7.9 L (8.5-10.3) mg/dL Magnesium 1.7 (1.7-2.3) mg/dL Diagnostic Imaging Diagnostic Imaging Results: positive Final report reviewed Assessment/Plan Problem List (1) SBO (small bowel obstruction): Impression: Patient presents with abdominal pain, nausea, vomiting. CT abdomen/pelvis done on admission shows nonspecific mild fluid distention of few proximal to mid small bowel loops concerning for low-grade small bowel obstruction versus enteritis. This morning, small bowel follow-through study was done, which resulted in multiple large bowel movements. Will trial clear liquid diet, advance to GI soft diet if tolerated. Continue antiemetics, analgesics, IV fluid. General Surgery following, appreciate recommendations. (2) S/P gastric sleeve procedure: Impression: Patient had gastric sleeve procedure in 2021 with resultant weight loss. Has resultant iron deficiency anemia; needs close follow up in the outpatient setting. (3) H/O: hysterectomy: Impression: She was admitted in June 2023 for abnormal uterine bleeding, and planned hysterectomy. The hysterectomy was converted to a total abdominal hysterectomy when extensive endometriosis was noted. During this procedure, a ureteral blockage was determined, and the abdominal reimplantation of the ureter was performed. Following this, she had a ureteral stent placed, and urology followed with this; she had it removed a month later. This will experience was quite traumatic for her, and so those feelings are coming back with this.
--- NOTE | 2024-08-11 13:43 | XRAY Report ---
PROCEDURE: XR SBFT Challenge Panel INDICATIONS: RULE OUT SBO COMPARISON: CT abdomen/pelvis 08/09/2024 CONTRAST: Gastrografin FINDINGS: Small bowel: Dilated small bowel loops are seen in the central abdomen. Contrast material reaches th e colon on 4 hour post contrast images. Patient had an episode of emesis during the exam resulting in less dense contrast within the distal bowel on later images. Right upper quadrant surgical clips are present. IMPRESSION: Oral contrast material reaches the colon within 4 hours of contrast administration. Dilated small bow el loops seen in the central abdomen. Reviewed by: Darren Benson MD on 08/11/2024 1:42 PM PDT Approved by: Darren Benson MD on 08/11/2024 1:42 PM PDT Station ID: [id number]
[2024-08-11] MEDS: GABAPENTIN 400 MG CAPSULE PO SCH (16:12)
[2024-08-11] MEDS: METOCLOPRAMIDE 10 MG/2 ML VIAL IVP ONE (16:32)
[2024-08-11] MEDS: oxyCODONE 5 MG TABLET PO PRN (22:12)
[2024-08-11] MEDS: ONDANSETRON ODT 4 MG TABLET PO SCH (22:12)
[2024-08-12 05:37] LABS: HCT - HEMATOCRIT 36.8 % (37.0-47.0); HGB - HEMOGLOBIN 12.5 g/dL (12.0-16.0); MEAN CORPUSCULAR HEMOGLOBIN 28.7 pg (27.0-31.0); MEAN CORPUSCULAR VOLUME 84.6 fL (81.0-99.0); MEAN PLATELET VOLUME 8.5 fL (7.9-10.8); RED BLOOD COUNT 4.35 10^6/uL (4.20-5.40); WHITE BLOOD COUNT 8.7 x10^3/uL (4.8-10.8)
[2024-08-12 05:49] LABS: CALCIUM 8.1 mg/dL (8.5-10.3); CREATININE 0.7 mg/dL (0.6-1.3); MAGNESIUM 1.9 mg/dL (1.7-2.3); POTASSIUM 3.5 mmol/L (3.5-4.5)
[2024-08-12] MEDS: LEVOTHYROXINE 88 MCG TABLET PO SCH (06:15)
--- NOTE | 2024-08-12 11:32 | PROVIDER PROGRESS NOTE ---
Subjective Subjective Subjective: Patient still feeling nauseous. She had a couple episodes of emesis overnight. She has had multiple episodes of diarrhea overnight. She denies any fevers or chills. This afternoon, she is feeling a little bit better. She would like to trial some soft foods like mashed potatoes. She still some pain, in her left lower quadrant. Current Medications Current Medications Current Medications: Current Medications Generic Name Dose Route Start Last Admin Trade Name Freq PRN Reason Stop Dose Admin Acetaminophen 1,000 mg 08/11/24 11:37 Acetaminophen 500 Mg Tablet PO TID PRN PAIN Al Hydroxide/Mg Hydroxide 5 ml 08/09/24 16:00 Mag Hydrox/Al Hydrox/Simeth 30 Ml Udc PO Q4HR PRN Abdominal Pain Gabapentin 800 mg 08/11/24 14:00 08/12/24 05:12 Gabapentin 400 Mg Capsule PO 800 mg TID RANDAL Administration Acetaminophen 1,000 mg in 100 mls @ 400 mls/hr 08/09/24 07:58 08/11/24 05:26 Acetaminophen IV Infused Q6HR PRN Infusion Moderate Pain (Level 4-6) Levothyroxine Sodium 88 mcg 08/12/24 07:00 08/12/24 06:15 Levothyroxine 88 Mcg Tablet PO Not Given QDAC RANDAL Lidocaine HCl 5 ml 08/09/24 16:00 08/10/24 10:22 Lidocaine Viscous 2% 15 Ml Udc PO 5 ml Q4H PRN Administration Abdominal Pain Metoclopramide HCl 5 mg 08/12/24 11:06 Metoclopramide 10 Mg Tablet PO Q6HR PRN Nausea Morphine Sulfate 2 mg 08/10/24 15:15 08/11/24 19:31 Morphine 2 Mg/Ml Carpuject IVP 2 mg Q4HR PRN Administration Severe Pain (Level 7-10) Ondansetron HCl 4 mg 08/09/24 07:58 08/11/24 19:26 Ondansetron 4 Mg/2 Ml Vial IVP 4 mg Q6HR PRN Administration Nausea / Vomiting Ondansetron HCl 8 mg 08/11/24 22:00 08/12/24 05:11 Ondansetron Odt 4 Mg Tablet PO 8 mg TID RANDAL Administration Prochlorperazine Edisylate 10 mg 08/11/24 10:05 08/11/24 23:07 Prochlorperazine 10 Mg/2 Ml Vial IVP 10 mg Q6HR PRN Administration Nausea / Vomiting Sodium Chloride 10 ml 08/09/24 07:58 Sodium Chloride Flush 0.9% 10 Ml Syringe IVP PRN PRN NEEDED PER PROVIDER ORDERS Sodium Chloride 10 ml 08/09/24 09:00 08/12/24 09:49 Sodium Chloride Flush 0.9% 10 Ml Syringe IVP Not Given 0100,0900,1700 [facility] Objective Vital Signs/Intake & Output Reviewed Vital Signs: Yes Vital Signs: Vital Signs x48h Temp Pulse Resp BP Pulse Ox 08/12/24 08:55 98.2 F 73 16 167/89 H 96 Intake & Output: Intake & Output 08/09/24 08/10/24 08/11/24 08/12/24 23:59 23:59 23:59 23:59 Intake Total 3200 / 3200 2300 / 2300 2182 / 2182 0 / 0 Output Total 1100 / 1100 3675 / 3675 700 / 700 800 / 800 Balance 2100 / 2100 -1375 / -1375 1482 / 1482 -800 / -800 Weight (kg) 104 kg Objective General Appearance: positive No acute distress, Alert and Lethargic Eyes Bilateral: positive Normal inspection, PERRL and EOMI ENT: positive ENT inspection nml, Pharynx nml and No signs of dehydration Neck: positive Nml inspection, Thyroid nml and No JVD Respiratory: positive Chest non-tender, No respiratory distress and Breath sounds nml; negative Wheezes, Rales or Rhonchi Cardiovascular: positive Regular rate & rhythm, No murmur and No gallop Abdomen: positive No distention (mild distension noted) and Tenderness (LLQ tenderness); negative Guarding, Rebound, Hepatomegaly or Splenomegaly Back: positive Nml inspection; negative CVA tenderness (R) or CVA tenderness (L) Skin: positive Color nml, No rash, Warm and Dry Extremities: positive Non-tender, Full ROM and No pedal edema Neurologic/Psychiatric: positive Oriented x3, Mood/affect nml and Other (lethargic, weak) Lab Results 08/12/24 05:07 08/12/24 05:07 Other Labs: Lab Results x24hrs 08/12/24 Range/Units 05:07 WBC 8.7 (4.8-10.8) x10^3/uL RBC 4.35 (4.20-5.40) 10^6/uL Hgb 12.5 (12.0-16.0) g/dL Hct 36.8 L (37.0-47.0) % MCV 84.6 (81.0-99.0) fL MCH 28.7 (27.0-31.0) pg MCHC 34.0 (32.0-36.0) g/dL RDW 13.0 (12.0-15.0) % Plt Count 320 (130-450) 10^3/uL MPV 8.5 (7.9-10.8) fL Sodium 136 (135-145) mmol/L Potassium 3.5 (3.5-4.5) mmol/L Chloride 104 (101-111) mmol/L Carbon Dioxide 24 (21-32) mmol/L Anion Gap 8.0 (6-13) BUN 9 (6-20) mg/dL Creatinine 0.7 (0.6-1.3) mg/dL Estimated GFR (MDRD) 90 (>89) Glucose 106 H (74-104) mg/dL Calcium 8.1 L (8.5-10.3) mg/dL Magnesium 1.9 (1.7-2.3) mg/dL Diagnostic Imaging Diagnostic Imaging Results: positive Final report reviewed Assessment/Plan Problem List (1) SBO (small bowel obstruction): Impression: Patient presents with abdominal pain, nausea, vomiting. CT abdomen/pelvis done on admission shows nonspecific mild fluid distention of few proximal to mid small bowel loops concerning for low-grade small bowel obstruction versus enteritis. Yesterday, small bowel follow-through study was done, which resulted in multiple large bowel movements. Will trial GI soft diet. Continue antiemetics, analgesics. We added Reglan today to see if it would assist with the continued nausea. General Surgery following, appreciate recommendations. (2) S/P gastric sleeve procedure: Impression: Patient had gastric sleeve procedure in 2021 with resultant weight loss. Has resultant iron deficiency anemia; needs close follow up in the outpatient setting. (3) H/O: hysterectomy: Impression: She was admitted in June 2023 for abnormal uterine bleeding, and planned hysterectomy. The hysterectomy was converted to a total abdominal hysterectomy when extensive endometriosis was noted. During this procedure, a ureteral blockage was determined, and the abdominal reimplantation of the ureter was performed. Following this, she had a ureteral stent placed, and urology followed with this; she had it removed a month later. This will experience was quite traumatic for her, and so those feelings are coming back with this.
[2024-08-12] MEDS: METOCLOPRAMIDE 10 MG TABLET PO PRN (11:52)
[2024-08-12] MEDS: oxyCODONE 5 MG TABLET PO PRN (13:49)
--- NOTE | 2024-08-12 15:05 | PROVIDER PROGRESS NOTE ---
Assessment/Plan Problem List (1) SBO (small bowel obstruction): Assessment/Plan: Resolved. Patient is having bowel movements. 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 This is characterized with chronic frequent recurring abdominal pain. It worsens with increasing doses. There is usually associated nausea, bloating, intermittent vomiting, abdominal distention and constipation. Eating can exacerbate the symptoms. Radiological studies can frequently show obstruction or partial obstruction and the laboratory values are frequently normal. I could not remember the treatment so I looked it up and it appears that she is appears that she is allergic to many of the adjunct treatments. I do not know who can guide this treatment plan but as there are no surgical issues this is the direction I would recommend. CPT 17729 Current Meds Current Meds: Current Medications Generic Name Dose Route Start Last Admin Trade Name Freq PRN Reason Stop Dose Admin Acetaminophen 1,000 mg 08/11/24 11:37 Acetaminophen 500 Mg Tablet PO TID PRN PAIN Al Hydroxide/Mg Hydroxide 5 ml 08/09/24 16:00 Mag Hydrox/Al Hydrox/Simeth 30 Ml Udc PO Q4HR PRN Abdominal Pain Gabapentin 800 mg 08/11/24 14:00 08/12/24 14:49 Gabapentin 400 Mg Capsule PO Not Given TID RANDAL Acetaminophen 1,000 mg in 100 mls @ 400 mls/hr 08/09/24 07:58 08/11/24 05:26 Acetaminophen IV Infused Q6HR PRN Infusion Moderate Pain (Level 4-6) Levothyroxine Sodium 88 mcg 08/12/24 07:00 08/12/24 06:15 Levothyroxine 88 Mcg Tablet PO Not Given QDAC RANDAL Lidocaine HCl 5 ml 08/09/24 16:00 08/10/24 10:22 Lidocaine Viscous 2% 15 Ml Udc PO 5 ml Q4H PRN Administration Abdominal Pain Metoclopramide HCl 5 mg 08/12/24 11:06 08/12/24 11:52 Metoclopramide 10 Mg Tablet PO 5 mg Q6HR PRN Administration Nausea Ondansetron HCl 4 mg 08/09/24 07:58 08/11/24 19:26 Ondansetron 4 Mg/2 Ml Vial IVP 4 mg Q6HR PRN Administration Nausea / Vomiting Ondansetron HCl 8 mg 08/11/24 22:00 08/12/24 13:47 Ondansetron Odt 4 Mg Tablet PO 8 mg TID RANDAL Administration Oxycodone HCl 5 mg 08/12/24 13:01 08/12/24 13:49 Oxycodone 5 Mg Tablet PO 5 mg Q6HR PRN Administration Moderate Pain (Level 4-6) Prochlorperazine Edisylate 10 mg 08/11/24 10:05 08/11/24 23:07 Prochlorperazine 10 Mg/2 Ml Vial IVP 10 mg Q6HR PRN Administration Nausea / Vomiting Sodium Chloride 10 ml 08/09/24 07:58 Sodium Chloride Flush 0.9% 10 Ml Syringe IVP PRN PRN NEEDED PER PROVIDER ORDERS Sodium Chloride 10 ml 08/09/24 09:00 08/12/24 09:49 Sodium Chloride Flush 0.9% 10 Ml Syringe IVP Not Given 0100,0900,1700 [facility] [place] Lab Result 08/12/24 05:07 08/12/24 05:07 Subjective Subjective Patient Reports: Abdominal Pain (The examination was observational. Patient lying in bed) Objective Vital Signs: Vital Signs - 24 hr 08/11/24 15:43 08/11/24 19:31 08/11/24 20:04 Temperature 36.8 C Temperature Source Temporal Artery Scan Pulse Rate [Brachial] 69 Respiratory Rate 16 Blood Pressure [Right Brachial artery] 156/87 H O2 Saturation 98 O2 Source Room air Sedation scale 1-Arouses easily Pain Intensity 7 9 6 Pain Intensity [Generalized Abdomen] Pain Intensity [Generalized Back] Pain Intensity [L hip] Pain Intensity [Neck] Pain Intensity [Right Temporal] Pain Intensity [Uterus] Pain Intensity [right shoulder] 08/11/24 22:12 08/11/24 22:50 08/11/24 23:42 Temperature 36.7 C Temperature Source Skin Pulse Rate [Brachial] 81 Respiratory Rate 12 Blood Pressure [Right Brachial artery] 161/85 H O2 Saturation 96 O2 Source Room air Sedation scale 1-Arouses easily Pain Intensity 9 8 Pain Intensity [Generalized Abdomen] Pain Intensity [Generalized Back] Pain Intensity [L hip] Pain Intensity [Neck] Pain Intensity [Right Temporal] Pain Intensity [Uterus] Pain Intensity [right shoulder] 08/12/24 00:00 08/12/24 05:12 08/12/24 05:42 Temperature Temperature Source Pulse Rate [Brachial] Respiratory Rate Blood Pressure [Right Brachial artery] O2 Saturation O2 Source Sedation scale Pain Intensity 8 9 Pain Intensity [Generalized Abdomen] Pain Intensity [Generalized Back] 8 Pain Intensity [L hip] Pain Intensity [Neck] Pain Intensity [Right Temporal] Pain Intensity [Uterus] Pain Intensity [right shoulder] 08/12/24 08:55 08/12/24 09:55 08/12/24 11:30 Temperature 36.8 C Temperature Source Temporal Artery Scan Pulse Rate [Brachial] 73 Respiratory Rate 16 Blood Pressure [Right Brachial artery] 167/89 H O2 Saturation 96 O2 Source Room air Sedation scale 0-Fully awake Pain Intensity Pain Intensity [Generalized Abdomen] 7 7 Pain Intensity [Generalized Back] 0 0 Pain Intensity [L hip] 0 0 Pain Intensity [Neck] 0 0 Pain Intensity [Right Temporal] 0 0 Pain Intensity [Uterus] 0 0 Pain Intensity [right shoulder] 0 0 08/12/24 13:49 Temperature Temperature Source Pulse Rate [Brachial] Respiratory Rate Blood Pressure [Right Brachial artery] O2 Saturation O2 Source Sedation scale Pain Intensity 6 Pain Intensity [Generalized Abdomen] Pain Intensity [Generalized Back] Pain Intensity [L hip] Pain Intensity [Neck] Pain Intensity [Right Temporal] Pain Intensity [Uterus] Pain Intensity [right shoulder] Oxygen O2 Source Room air I&O (Last 24 Hrs): Intake and Output Totals x24h 08/10/24 08/11/24 08/12/24 23:59 23:59 23:59 Intake Total 2300 / 2300 2182 / 2182 0 / 0 Output Total 3675 / 3675 700 / 700 800 / 800 Balance -1375 / -1375 1482 / 1482 -800 / -800 General: Oriented x3 and No acute distress HEENT: Atraumatic Abdomen: Other (No peritoneal function.) Results Results: Laboratory Results WBC 8.7 x10^3/uL (4.8-10.8) 08/12/24 05:07 RBC 4.35 10^6/uL (4.20-5.40) 08/12/24 05:07 Hgb 12.5 g/dL (12.0-16.0) 08/12/24 05:07 Hct 36.8 % (37.0-47.0) L 08/12/24 05:07 MCV 84.6 fL (81.0-99.0) 08/12/24 05:07 MCH 28.7 pg (27.0-31.0) 08/12/24 05:07 MCHC 34.0 g/dL (32.0-36.0) 08/12/24 05:07 RDW 13.0 % (12.0-15.0) 08/12/24 05:07 Plt Count 320 10^3/uL (130-450) 08/12/24 05:07 MPV 8.5 fL (7.9-10.8) 08/12/24 05:07 Neut # (Auto) 5.7 10^3/uL (1.5-6.6) 08/09/24 02:40 Lymph # (Auto) 2.2 10^3/uL (1.5-3.5) 08/09/24 02:40 [place] # (Auto) 0.5 10^3/uL (0.0-1.0) 08/09/24 02:40 Eos # (Auto) 0.2 10^3/uL (0.0-0.7) 08/09/24 02:40 Baso # (Auto) 0.1 10^3/uL (0.0-0.1) 08/09/24 02:40 Absolute Nucleated RBC 0.00 x10^3/uL 08/09/24 02:40 Nucleated RBC % 0.0 /100WBC 08/09/24 02:40 Sodium 136 mmol/L (135-145) 08/12/24 05:07 Potassium 3.5 mmol/L (3.5-4.5) 08/12/24 05:07 Chloride 104 mmol/L (101-111) 08/12/24 05:07 Carbon Dioxide 24 mmol/L (21-32) 08/12/24 05:07 Anion Gap 8.0 (6-13) 08/12/24 05:07 BUN 9 mg/dL (6-20) 08/12/24 05:07 Creatinine 0.7 mg/dL (0.6-1.3) 08/12/24 05:07 Estimated GFR (MDRD) 90 (>89) 08/12/24 05:07 Glucose 106 mg/dL (74-104) H 03/14/25 05:07 Lactic Acid 0.8 mmol/L (0.5-2.2) 08/10/24 06:21 Calcium 8.1 mg/dL (8.5-10.3) L 08/12/24 05:07 Magnesium 1.9 mg/dL (1.7-2.3) 08/12/24 05:07 Total Bilirubin 0.3 mg/dL (0.2-1.0) 08/09/24 03:10 AST 14 IU/L (10-42) 08/09/24 03:10 ALT 12 IU/L (10-60) 08/09/24 03:10 Alkaline Phosphatase 66 IU/L (42-121) 08/09/24 03:10 Total Protein 7.5 g/dL (6.4-8.9) 08/09/24 03:10 Albumin 4.4 g/dL (3.2-5.5) 08/09/24 03:10 Globulin 3.1 g/dL (2.1-4.2) 08/09/24 03:10 Albumin/Globulin Ratio 1.4 (1.0-2.2) 08/09/24 03:10 Lipase 20 U/L (11-82) 08/09/24 03:10 Urine Color YELLOW 08/09/24 04:40 Urine Clarity CLEAR (CLEAR) 08/09/24 04:40 Urine pH 6.5 PH (5.0-7.5) 08/09/24 04:40 Ur Specific [place] 1.015 (1.002-1.030) 08/09/24 04:40 Urine Protein NEGATIVE mg/dL (NEGATIVE) 08/09/24 04:40 Urine Glucose (UA) NEGATIVE mg/dL (NEGATIVE) 08/09/24 04:40 Urine Ketones NEGATIVE mg/dL (NEGATIVE) 08/09/24 04:40 Urine Occult Blood NEGATIVE (NEGATIVE) 08/09/24 04:40 Urine Nitrite NEGATIVE (NEGATIVE) 08/09/24 04:40 Urine Bilirubin NEGATIVE (NEGATIVE) 08/09/24 04:40 Urine Urobilinogen 0.2 (NORMAL) E.U./dL (NORMAL) 08/09/24 04:40 Ur Leukocyte Esterase NEGATIVE (NEGATIVE) 08/09/24 04:40 Ur Microscopic Review NOT INDICATED 08/09/24 04:40 Urine Culture Comments NOT INDICATED 08/09/24 04:40 Urine HCG, Qual NEGATIVE 08/09/24 04:40 Procedures Procedures: Procedures EXT VERSION-ASSIST DELIV (12/17/12) Excision of Right Fallopian Tube, Percutaneous Endoscopic Approach (05/28/23) Extraction of Endometrium, Via Natural or Artificial Opening Endoscopic (03/24/23) Fluoroscopy of Left Kidney, Ureter and Bladder using Other Contrast (05/28/23) Inspection of Bladder, Via Natural or Artificial Opening Endoscopic (05/28/23) MANUAL ASSIST DELIV NEC (06/15/14) MEDICAL INDUCTION LABOR (12/17/12) Release Left Ureter, Open Approach (05/28/23) Reposition Left Ureter, Open Approach (05/28/23) Resection of Uterus, Open Approach (05/28/23) ABX Reporting Has patient been on IV antibiotics over the past 48 hours?: No Current Medications Current Medications Current Medications: Current Medications Generic Name Dose Route Start Last Admin Trade Name Freq PRN Reason Stop Dose Admin Acetaminophen 1,000 mg 08/11/24 11:37 Acetaminophen 500 Mg Tablet PO TID PRN PAIN Al Hydroxide/Mg Hydroxide 5 ml 08/09/24 16:00 Mag Hydrox/Al Hydrox/Simeth 30 Ml Udc PO Q4HR PRN Abdominal Pain Gabapentin 800 mg 08/11/24 14:00 08/12/24 14:49 Gabapentin 400 Mg Capsule PO Not Given TID RANDAL Acetaminophen 1,000 mg in 100 mls @ 400 mls/hr 08/09/24 07:58 08/11/24 05:26 Acetaminophen IV Infused Q6HR PRN Infusion Moderate Pain (Level 4-6) Levothyroxine Sodium 88 mcg 08/12/24 07:00 08/12/24 06:15 Levothyroxine 88 Mcg Tablet PO Not Given QDAC RANDAL Lidocaine HCl 5 ml 08/09/24 16:00 08/10/24 10:22 Lidocaine Viscous 2% 15 Ml Udc PO 5 ml Q4H PRN Administration Abdominal Pain Metoclopramide HCl 5 mg 08/12/24 11:06 08/12/24 11:52 Metoclopramide 10 Mg Tablet PO 5 mg Q6HR PRN Administration Nausea Ondansetron HCl 4 mg 08/09/24 07:58 08/11/24 19:26 Ondansetron 4 Mg/2 Ml Vial IVP 4 mg Q6HR PRN Administration Nausea / Vomiting Ondansetron HCl 8 mg 08/11/24 22:00 08/12/24 13:47 Ondansetron Odt 4 Mg Tablet PO 8 mg TID RANDAL Administration Oxycodone HCl 5 mg 08/12/24 13:01 08/12/24 13:49 Oxycodone 5 Mg Tablet PO 5 mg Q6HR PRN Administration Moderate Pain (Level 4-6) Prochlorperazine Edisylate 10 mg 08/11/24 10:05 08/11/24 23:07 Prochlorperazine 10 Mg/2 Ml Vial IVP 10 mg Q6HR PRN Administration Nausea / Vomiting Sodium Chloride 10 ml 08/09/24 07:58 Sodium Chloride Flush 0.9% 10 Ml Syringe IVP PRN PRN NEEDED PER PROVIDER ORDERS Sodium Chloride 10 ml 08/09/24 09:00 08/12/24 09:49 Sodium Chloride Flush 0.9% 10 Ml Syringe IVP Not Given 0100,0900,1700 [facility] [place]
[2024-08-12 15:59] LABS: COCAINE SCREEN URINE NEGATIVE (NEGATIVE); METHAMPHETAMINES SCREEN, URINE POSITIVE (NEGATIVE); OPIATE SCREEN, URINE POSITIVE (NEGATIVE); THC CANNABINOID SCREEN, URINE NEGATIVE (NEGATIVE)
[2024-08-12 16:00] LABS: AMPHETAMINE SCREEN,URINE POSITIVE (NEGATIVE); BARBITURATE SCREEN,UR NEGATIVE (NEGATIVE); BENZODIAZEPINES SCREEN, URINE NEGATIVE (NEGATIVE); BUPRENORPHINE SCREEN, URINE NEGATIVE (NEGATIVE); METHADONE SCREEN, URINE NEGATIVE (NEGATIVE); OXYCODONE SCREEN, URINE POSITIVE (NEGATIVE); TRICYCLIC ANTIDEPRESSANT,URINE NEGATIVE (NEGATIVE)
[2024-08-12] MEDS: MAG HYDROX/AL HYDROX/SIMETH 30 ML UDC PO PRN (16:14)
[2024-08-12] MEDS: PROCHLORPERAZINE 5 MG TABLET PO ONE (17:01)
[2024-08-13 05:41] LABS: HCT - HEMATOCRIT 36.3 % (37.0-47.0); HGB - HEMOGLOBIN 12.2 g/dL (12.0-16.0); MEAN CORPUSCULAR HEMOGLOBIN 28.2 pg (27.0-31.0); MEAN CORPUSCULAR HGB CONC 33.6 g/dL (32.0-36.0); MEAN PLATELET VOLUME 8.5 fL (7.9-10.8); RED BLOOD COUNT 4.32 10^6/uL (4.20-5.40); RED CELL DISTRIBUTION WIDTH 12.9 % (12.0-15.0); WHITE BLOOD COUNT 8.2 x10^3/uL (4.8-10.8)
[2024-08-13 05:57] LABS: CALCIUM 8.2 mg/dL (8.5-10.3); CREATININE 0.6 mg/dL (0.6-1.3); POTASSIUM 3.4 mmol/L (3.5-4.5)
--- NOTE | 2024-08-13 09:22 | Discharge Summary ---
"Discharge Summary Admit Date: 08/09/24 Discharge Date: 08/13/24 Discharging Provider: Dr. Allie Concepcion Primary Care Provider: Pako Rockwell MD Code Status: Attempt Resuscitation Discharge Facility Name: Home DIAGNOSES Admission Diagnoses: Small bowel obstruction Discharge Diagnoses with Status of Each Condition: Small bowel obstructionpatient presented with abdominal pain, nausea, vomiting. CT abdomen/pelvis showed distention of mid small bowel loops concerning for low-grade small bowel obstruction versus enteritis. Small bowel follow-through study was done, which resulted in multiple bowel movements. She had continued nausea, and was not tolerating any p.o. intake. Added Reglan to her Zofran, with improvement. She is now able to tolerate p.o. intake. Status post gastric sleeve procedurecontinue close follow-up in the outpatient setting with her primary care provider. History of hysterectomypatient still has a resultant ovarian cyst, advised extensively to follow-up with urogynecology in the outpatient setting. Patient demonstrated understanding. HPI History of Present Illness: Per Dr. Ghosh: Mrs Phillips presented to the ED with acute onset of abdominal pain that started on the night of presentation. Patient reported that pain was crampy,generalized and intermittent. She reported that she had not had a bowel movement in 2 days. Nothing relieved the pain and due to it increased intensity she came to the ED for further evaluation. She was found to have a findings concerning for a small bowel obstruction on CT of her abdomen. ED physician consulted the hospitalist service for observation. Surgery team was not consulted in the ED,nor was a NG tube placed as the patient was not actively vomiting. CONSULTS | PROCEDURES Consultations: Surgery Procedures: CT abdomen/pelvis, small bowel follow through study HOSPITAL COURSE Hospital Course: Patient is a 44-year-old female with a history of gastric sleeve surgery, endometriosis s/p hysterectomy, chronic opioid use who presented for abdominal pain, nausea, vomiting. CT abdomen/pelvis showed possible small bowel enteritis versus small bowel obstruction. She received bowel rest, was n.p.o., received IV fluids. Small bowel follow-through was completed, which resulted in multiple bowel movements. She had some persistent nausea for the remainder of her stay, which was relieved with the addition of Reglan. She tolerated p.o. intake, and was discharged home. She was advised to follow-up closely with a primary care provider, as well as her urogynecologist. She demonstrated understanding. ALLERGIES Allergies Allergy/AdvReac Type Severity Reaction Status Date / Time hydrocodone bitartrate * Allergy Intermediate Rash Verified 08/09/24 01:48 (From Vicodin) ketorolac tromethamine * Allergy Intermediate Rash Verified 08/09/24 01:48 (From Toradol) Penicillins Allergy Intermediate Rash Verified 08/09/24 01:48 shellfish derived Allergy Intermediate Rash Verified 08/09/24 01:48 Tetracyclic Antidepressants Allergy Intermediate Hallucinati Verified 08/09/24 01:48 ons tramadol Allergy Intermediate Rash Verified 08/09/24 01:48 codeine Allergy Mild Hives Verified 08/09/24 01:48 magnesium sulfate (From Allergy Mild Rash Verified 08/09/24 01:48 Epsom Salt) erythromycin base (From Allergy Unknown Verified 08/09/24 01:48 Erythrocin) milk Allergy Cramps Verified 08/09/24 01:48 whey Allergy Cramps Verified 08/09/24 01:48 hydromorphone AdvReac Severe Emesis Verified 08/09/24 01:48 prednisone AdvReac Severe Anxiety Verified 08/09/24 01:48 ibuprofen AdvReac Intermediate Bloody Verified 08/09/24 01:48 Stools sodium bicarbonate AdvReac Mild Rash Verified 08/09/24 01:48 bupropion (From Wellbutrin) AdvReac Headache Verified 08/09/24 01:48 escitalopram (From Lexapro) AdvReac Headache Verified 08/09/24 01:48 fluoxetine (From Prozac) AdvReac Unknown Verified 08/09/24 01:48 lamotrigine (From Lamictal) AdvReac Rash Verified 08/09/24 01:48 paroxetine (From Paxil) AdvReac Headache Verified 08/09/24 01:48 sertraline (From Zoloft) AdvReac Unknown Verified 08/09/24 01:48 MEDICATIONS Ambulatory Orders Medication Instructions Recorded Confirmed levothyroxine 88 mcg tablet 88 mcg PO DAILY 03/05/19 08/09/24 (Synthroid) dextroamphetamine-amphetamine 30 15 mg PO UD 07/06/22 08/09/24 mg tablet (Adderall) acetaminophen 500 mg tablet 1,000 mg PO TID PRN PAIN 01/05/23 08/09/24 gabapentin 800 mg tablet 800 mg PO TID 01/05/23 08/09/24 (Neurontin) Bariatric Fusion Calcium 500, Vit 1 tab PO DAILY 03/23/23 08/09/24 D 5,000 U Bariatric Mvi Soft Chewy 1 tab PO DAILY 03/23/23 08/09/24 alprazolam 0.5 mg tablet 0.5 mg PO TID PRN Anxiety 07/14/23 08/09/24 ondansetron 8 mg disintegrating 8 mg PO TID 08/09/24 08/09/24 tablet oxycodone 15 mg tablet 15 mg PO QID PRN pain 08/09/24 08/09/24 propranolol 20 mg tablet 20 mg PO DAILY 08/09/24 08/09/24 aluminum-mag hydroxide-simethicone 5 ml PO Q4HR PRN Abdominal Pain 08/13/24 200 mg-200 mg-20 mg/5 mL oral susp #1,000 mL (Mag-Al Plus) metoclopramide HCl 10 mg tablet 5 mg (1/2 x 10 mg) PO Q6HR PRN 08/13/24 Nausea #20 tabs PHYSICAL EXAM AT DISCHARGE General Appearance: positive No acute distress, Alert and Lethargic; negative Anxious Eyes Bilateral: positive Normal inspection, PERRL and EOMI ENT: positive ENT inspection nml, Pharynx nml and No signs of dehydration Neck: positive Nml inspection, Thyroid nml and No JVD Respiratory: positive Chest non-tender and No respiratory distress; negative Wheezes, Rales or Rhonchi Cardiovascular: positive Regular rate & rhythm, No murmur and No gallop Peripheral Pulses: positive 2+ Abdomen: positive Non-tender; negative Guarding, Rebound, Hepatomegaly, Splenomegaly or Mass Back: positive Nml inspection; negative CVA tenderness (R) or CVA tenderness (L) Skin: positive Color nml, No rash, Warm and Dry Extremities: positive Non-tender, Full ROM and No pedal edema Neurologic/Psychiatric: positive Oriented x3 and Motor nml LABS 08/13/24 05:17 08/13/24 05:17 DIAGNOSTIC IMAGING Diagnostic Imaging Results: Final report reviewed FOLLOW UP Follow Up: Follow-up with your primary care provider. 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 TIME SPENT Time Spent in Discharge (Minutes): 35 Discharge Plan Discharge Patient Disposition: Home, Self Care Condition: Stable Prescriptions: New alum-mag hydroxide-simeth [Mag-Al Plus] 200-200-20 mg/5 mL Suspension 5 ml PO Q4HR PRN (Reason: Abdominal Pain) Qty: 1000 0RF metoclopramide HCl 10 mg Tablet 5 mg PO Q6HR PRN (Reason: Nausea) Qty: 20 0RF Continued levothyroxine [Synthroid] 88 MCG tablet 88 mcg PO DAILY dextroamphetamine-amphetamine [Adderall] 30 MG tablet 15 mg PO UD Rx Instructions: 1 tablet AM, 1/2 tablet PM acetaminophen 500 MG tablet 1,000 mg PO TID PRN (Reason: PAIN) gabapentin [Neurontin] 800 MG tablet 800 mg PO TID Bariatric Fusion Calcium 500, Vit D 5,000 U 1 tab PO DAILY Bariatric Mvi Soft Chewy 1 tab PO DAILY alprazolam 0.5 MG tablet 0.5 mg PO TID PRN (Reason: Anxiety) ondansetron 8 mg tablet,disintegrating 8 mg PO TID Patient Comments: DISSOLVE 1 TABLET ON THE TONGUE THREE TIMES DAILY propranolol 20 mg tablet 20 mg PO DAILY Held oxycodone 15 mg tablet 15 mg PO QID PRN (Reason: pain) Hold Instructions: Resume on 08/20/24. Please try to decrease your opioid use as tolerated as it is contributing to your stomach pains. Patient Comments: TAKE 1 TABLET BY MOUTH FOUR TIMES DAILY NEEDED Activity Restrictions: Activity as Tolerated Diet: Soft Health Concerns: You came in for abdominal pain. You were found to have an obstruction of your small bowels. You also had persistent nausea, and vomiting. We did repeated x- rays of your stomach until the small bowel obstruction resolved. We also did what we call a small bowel follow-through study where we tracked the contrast from where you ingested it until it left your system, indicating that the obstruction had resolved. You had some nausea, which resolved slowly over time. Please try to limit your oxycodone use at home. This can slow down your gut and can lead to obstructions like the above. I am sending you home with some Mylanta, which can help with some of the abdominal pain. I am also sending you home with a few days of Reglan, which you can alternate with your Zofran for the nausea. Please take it easy with your diet, and stick to soft foods and liquids as tolerated. As you know, you have an ovarian cyst. Please continue to follow-up with your urogynecologist as this may also be contributing to your abdominal pain. We are glad you are feeling better, thank you for letting us take care of you. Print Language: Mongolian Patient Instructions: Diet Soft Dc Stand Alone Forms: PCP List Follow-up Care: Pako Rockwell MD [Primary Care Provider] -"
[2024-08-13 10:04] VITALS: BP 148/84; TEMP 98.6; O2SAT 97
== END 2024-08-13 12:00 | disposition home or self-care (01) | DRG 390 ==
LOC: ED 01:38 → MS2 01:38
PROVIDERS: ADMIT Hospitalist; ATTEND Internal Medicine
DX: Z79.890 Hormone replacement therapy; Z90.710 Acquired absence of both cervix and uterus; Z87.891 Personal history of nicotine dependence; Z98.84 Bariatric surgery status; Z90.49 Acquired absence of other specified parts of digestive tract; K56.609 Unspecified intestinal obstruction, unspecified as to partial versus complete obstruction; Z79.899 Other long term (current) drug therapy